=== PATIENT | female | born 1940 | race Caucasian/White ===

== ENCOUNTER 2017-06-10 05:57 | Emergency (ER) | payer MEDICARE, MEDICAID ==
[2017-06-10] MEDS ORDERED: Ondansetron 4 MG/2 ML SDV IVPUSH ONE (06:12)
--- NOTE | 2017-06-10 06:25 | EDM.PDOC ---
<Adelaide Hoff - Last Filed: 06/10/17 06:40> ED HPI GENERAL MEDICAL PROBLEM - General Chief Complaint: Syncope Stated Complaint: MEDICAL VIA [facility] Time Seen by Provider: 06/10/17 06:18 Source of Information: Reports: Patient, EMS Notes Reviewed History Limitations: Reports: No Limitations - History of Present Illness INITIAL COMMENTS - FREE TEXT/NARRATIVE: pt woke up a 3 am and she felt like everything was moving in front of her. She does not have a headache. She is vry nauseated, Onset: Today, Sudden Duration: Hour(s): Location: Reports: Head Worsens with: Reports: Movement Associated Symptoms: Reports: Nausea/Vomiting denies pain Pain Score (Numeric/FACES): 0 - Related Data Allergies Allergy/AdvReac Type Severity Reaction Status Date / Time moxifloxacin HCl Allergy Severe Seizure Verified 06/10/17 06:05 [From Avelox] indomethacin Allergy Intermediate Itching Verified 06/10/17 06:05 azathioprine Allergy Unknown Itching Verified 06/10/17 06:05 cephalexin monohydrate Allergy Unknown Itching Verified 06/10/17 06:05 [From Keflex] clindamycin HCl Allergy Unknown Itching Verified 06/10/17 06:05 [From Cleocin] codeine Allergy Unknown Itching Verified 06/10/17 06:05 doxycycline Allergy Unknown Itching Verified 06/10/17 06:05 erythromycin base Allergy Unknown Itching Verified 06/10/17 06:05 [Erythromycin Base] etodolac [Etodolac] Allergy Unknown Itching Verified 06/10/17 06:05 methotrexate Allergy Unknown Itching Verified 06/10/17 06:05 paroxetine HCl [From Paxil] Allergy Unknown Itching Verified 06/10/17 06:05 Penicillins Allergy Unknown Itching Verified 06/10/17 06:05 Sulfa (Sulfonamide Allergy Unknown Itching Verified 06/10/17 06:05 Antibiotics) ibuprofen Allergy Cannot Verified 06/10/17 06:05 Remember Iodinated Contrast- Oral and Allergy Cannot Verified 06/10/17 06:05 IV Dye Remember sulfasalazine Allergy Cannot Verified 06/10/17 06:05 [From Azulfidine] Remember sertraline HCl [From Zoloft] AdvReac Unknown Weakness Verified 06/10/17 06:05 prednisone AdvReac Joint Pain Verified 06/10/17 06:05 Home Meds: Home Meds Zolpidem Tartrate [Ambien] 5 mg PO BEDTIME PRN 10/08/13 [History] atorvaSTATin [Lipitor] 40 mg PO BEDTIME 10/08/13 [History] methylPREDNISolone [Methylprednisolone] 8 mg PO DAILY 10/08/13 [History] amLODIPine [Norvasc] 2.5 mg PO DAILY 09/30/15 [History] Cyanocobalamin (Vitamin B-12) [Vitamin B-12] 1,000 mcg PO DAILY 06/10/17 [ History] Furosemide [Lasix] 20 mg PO DAILY PRN 06/10/17 [History] Past Medical History HEENT History: Reports: Impaired Vision, Other (See Below) Other HEENT History: 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 Cardiovascular History: Reports: Heart Murmur, High Cholesterol, Hypertension Respiratory History: Reports: None Gastrointestinal History: Reports: GERD Genitourinary History: Reports: Urinary Incontinence Other Genitourinary History: urinary frequency 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: Musculoskeletal History: Reports: Arthritis, Osteoarthritis, Osteoporosis Other Musculoskeletal History: polymyalgia rheumatica Neurological History: Reports: Seizure, Other (See Below) 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 Psychiatric History: Reports: Anxiety, Depression Endocrine/Metabolic History: Reports: Other (See Below) Other Endocrine/Metabolic History: Pre diabetic Hematologic History: Reports: None Immunologic History: Reports: None Oncologic (Cancer) History: Reports: None Dermatologic History: Reports: None - Infectious Disease History Infectious Disease History: Reports: Chicken Pox, Shingles - Past Surgical History HEENT Surgical History: Reports: Cataract Surgery, Tonsillectomy, Other (See Below) Cardiovascular Surgical History: Reports: None Respiratory Surgical History: Reports: None GI Surgical History: Reports: Colonoscopy Female Surgical History: Reports: None Neurological Surgical History: Reports: None Musculoskeletal Surgical History: Reports: None Oncologic Surgical History: Reports: None Dermatological Surgical History: Reports: None Social & Family History - Tobacco Use Smoking Status *Q: Never Smoker Second Hand Smoke Exposure: No - Alcohol Use Days Per Week of Alcohol Use: 0 - Recreational Drug Use Recreational Drug Use: No ED ROS GENERAL - Review of Systems Review Of Systems: See Below Constitutional: Reports: No Symptoms HEENT: Reports: Vertigo Respiratory: Reports: No Symptoms Cardiovascular: Reports: No Symptoms Endocrine: Reports: No Symptoms GI/Abdominal: Reports: No Symptoms : Reports: No Symptoms Musculoskeletal: Reports: Other (pt has acute joint pain) Skin: Reports: No Symptoms Neurological: Reports: Dizziness Psychiatric: Reports: Depression ED EXAM, DIZZINESS - Physical Exam Exam: See Below Text/Narrative:: pt arrived with a history of waking up at 3 am and feeling like the whole room was spinning. She was not able to walk, She was very nauseated and did alot of wretching. Exam Limited By: No Limitations General Appearance: Alert, Anxious, Moderate Distress, Other (pupils are equal and reactive. She does have some lateral nystagmus. ) Nystagmus: reproducible Ears: Normal TMs Nose: Normal Inspection Throat/Mouth: Normal Inspection Head Exam: Atraumatic Neck: Normal Inspection Respiratory/Chest: No Respiratory Distress GI/Abdominal: Soft, Non-Tender (Female) Exam: Deferred Rectal (Female) Exam: Deferred Neurological: Alert, Oriented x 3 Extremities: Other ( rt leg is very swollen and tender,) Psychiatric: Normal Affect Skin Exam: Warm Course - Vital Signs Last Recorded V/S: Last Vital Signs Temp 96.8 F 06/10/17 07:50 Pulse 75 06/10/17 07:50 Resp 16 06/10/17 07:50 BP 150/77 H 06/10/17 07:50 Pulse Ox 95 06/10/17 07:50 - Orders/Labs/Meds Orders: Active Orders 24 hr Category Date Time Status Sodium Chloride 0.9% [Normal Saline] 1,000 ml Med 06/10/17 06:45 Active IV ASDIRECTED Medication Orders Sodium Chloride (Normal Saline) 1,000 mls @ 250 mls/hr IV ASDIRECTED NORMA Last Admin: 06/10/17 06:39 Dose: 250 mls/hr Labs: Laboratory Tests 06/10/17 06/10/17 06/10/17 Range/Units 06:38 06:38 06:38 WBC 13.0 H (4.5-11.0) K/uL RBC 4.24 (3.30-5.50) M/uL Hgb 12.2 (12.0-15.0) g/dL Hct 37.5 (36.0-48.0) % MCV 88 (80-98) fL MCH 29 (27-31) pg MCHC 33 (32-36) % Plt Count 221 (150-400) K/uL Neut % (Auto) 62 (36-66) % Lymph % (Auto) 28 (24-44) % [place] % (Auto) 8 H (2-6) % Eos % (Auto) 2 (2-4) % Baso % (Auto) 1 (0-1) % PT 10.0 (9.5-12.0) sec INR 0.94 (0.80-1.20) Sodium 142 (140-148) mmol/L Potassium 3.1 L (3.6-5.2) mmol/L Chloride 104 (100-108) mmol/L Carbon Dioxide 30 (21-32) mmol/L Anion Gap 11.1 (5.0-14.0) mmol/L BUN 22 H (7-18) mg/dL Creatinine 1.0 (0.6-1.0) mg/dL Est Cr Clr Drug Dosing 41.72 mL/min Estimated GFR (MDRD) 54 L (>60) Glucose 105 (74-106) mg/dL Calcium 8.7 (8.5-10.1) mg/dL Total Bilirubin 0.3 (0.2-1.0) mg/dL AST 18 (15-37) U/L ALT 23 (12-78) U/L Alkaline Phosphatase 67 (46-116) U/L Total Protein 7.0 (6.4-8.2) g/dL Albumin 3.2 L (3.4-5.0) g/dL Globulin 3.8 H (2.3-3.5) g/dL Albumin/Globulin Ratio 0.8 L (1.2-2.2) Urine Color Urine Appearance Urine pH (4.5-8.0) Ur Specific [place] (1.008-1.030) Urine Protein (NEGATIVE) mg/dL Urine Glucose (UA) (NEGATIVE) mg/dL Urine Ketones (NEGATIVE) mg/dL Urine Occult Blood (NEGATIVE) Urine Nitrite (NEGATIVE) Urine Bilirubin (NEGATIVE) Urine Urobilinogen (NORMAL) mg/dL Ur Leukocyte Esterase (NEGATIVE) Urine RBC (0-5) Urine WBC (0-5) Ur Epithelial Cells Amorphous Sediment Urine Bacteria Urine Mucus 06/10/17 Range/Units 07:47 WBC (4.5-11.0) K/uL RBC (3.30-5.50) M/uL Hgb (12.0-15.0) g/dL Hct (36.0-48.0) % MCV (80-98) fL MCH (27-31) pg MCHC (32-36) % Plt Count (150-400) K/uL Neut % (Auto) (36-66) % Lymph % (Auto) (24-44) % [place] % (Auto) (2-6) % Eos % (Auto) (2-4) % Baso % (Auto) (0-1) % PT (9.5-12.0) sec INR (0.80-1.20) Sodium (140-148) mmol/L Potassium (3.6-5.2) mmol/L Chloride (100-108) mmol/L Carbon Dioxide (21-32) mmol/L Anion Gap (5.0-14.0) mmol/L BUN (7-18) mg/dL Creatinine (0.6-1.0) mg/dL Est Cr Clr Drug Dosing mL/min Estimated GFR (MDRD) (>60) Glucose (74-106) mg/dL Calcium (8.5-10.1) mg/dL Total Bilirubin (0.2-1.0) mg/dL AST (15-37) U/L ALT (12-78) U/L Alkaline Phosphatase (46-116) U/L Total Protein (6.4-8.2) g/dL Albumin (3.4-5.0) g/dL Globulin (2.3-3.5) g/dL Albumin/Globulin Ratio (1.2-2.2) Urine Color Yellow Urine Appearance Clear Urine pH 8.0 (4.5-8.0) Ur Specific [place] 1.010 (1.008-1.030) Urine Protein Negative (NEGATIVE) mg/dL Urine Glucose (UA) Normal (NEGATIVE) mg/dL Urine Ketones Negative (NEGATIVE) mg/dL Urine Occult Blood Negative (NEGATIVE) Urine Nitrite Negative (NEGATIVE) Urine Bilirubin Negative (NEGATIVE) Urine Urobilinogen Normal (NORMAL) mg/dL Ur Leukocyte Esterase Negative (NEGATIVE) Urine RBC Not seen (0-5) Urine WBC Not seen (0-5) Ur Epithelial Cells Not seen Amorphous Sediment Not seen Urine Bacteria Not seen Urine Mucus Not seen Meds: Medications Generic Name Dose Route Start Last Admin Trade Name Freq PRN Reason Stop Dose Admin Sodium Chloride 1,000 mls @ 250 mls/hr 06/10/17 06:45 06/10/17 06:39 Normal Saline IV 250 mls/hr ASDIRECTED NORMA Administration Discontinued Medications Generic Name Dose Route Start Last Admin Trade Name Jacoby PRN Reason Stop Dose Admin Lorazepam 0.5 mg 06/10/17 08:48 06/10/17 09:03 Ativan IVPUSH 06/10/17 08:49 0.5 mg ONETIME ONE Administration Meclizine HCl 25 mg 06/10/17 06:31 06/10/17 06:38 Antivert PO 06/10/17 06:32 25 mg ONETIME ONE Administration Ondansetron HCl 4 mg 06/10/17 06:12 06/10/17 06:16 Zofran IVPUSH 06/10/17 06:13 4 mg ONETIME ONE Administration Departure - Departure Disposition: Home, Self-Care 01 Clinical Impression: Dizziness - Discharge Information Forms: ED Department Discharge Additional Instructions: Use Ativan as needed to help control dizzy and nausea symptoms, Please followup with your primary care provider in 3-5 days if not better, please call return to the emergency department with worsening of symptoms. <OfficerHussain - Last Filed: 06/10/17 11:10> Course - Re-Assessments/Exams Free Text/Narrative Re-Assessment/Exam: Took over care from Dr. Hoff is 7 AM, hints exam was negative head impulse negative no nystagmus test askew also negative. 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 follow-up with her primary care in 3-5 days if no improvement prescription written for Ativan total #10 tablets Patient was in agreement with the plan all questions were answered, they were instructed to return to the emergency department or call for worsening symptoms. This note was dictated using [employer] voice recognition software please call with any questions.
[2017-06-10] MEDS ORDERED: Meclizine 25 MG Tab PO ONE (06:31)
[2017-06-10] MEDS ORDERED: Sodium Chloride 0.9% 1,000 ML IV SCH (06:45)
[2017-06-10 07:52] VITALS: BP 150/77
[2017-06-10] MEDS ORDERED: LORazepam 2 MG/ML MDV IVPUSH ONE (08:48)
== END 2017-06-10 11:30 | disposition home or self-care (01) ==
LOC: JP.ED 05:57
DX: R42 Dizziness and giddiness (principal); I10 Essential (primary) hypertension; E78.00 Pure hypercholesterolemia, unspecified; K21.9 Gastro-esophageal reflux disease without esophagitis; M19.90 Unspecified osteoarthritis, unspecified site; M81.0 Age-related osteoporosis without current pathological fracture; F41.9 Anxiety disorder, unspecified; F32.9 Major depressive disorder, single episode, unspecified; H54.42 Blindness, left eye, normal vision right eye; Z79.899 Other long term (current) drug therapy; Z98.49 Cataract extraction status, unspecified eye; Z98.890 Other specified postprocedural states; Z88.0 Allergy status to penicillin; Z88.1 Allergy status to other antibiotic agents; Z88.2 Allergy status to sulfonamides; Z88.5 Allergy status to narcotic agent; Z88.8 Allergy status to other drugs, medicaments and biological substances; Z91.041 Radiographic dye allergy status
CPT/HCPCS: 36415; 80053; 81001; 82962; 85025; 85610; 96361; 96374; 96375; 99284; A9270; J2060; J2405; J7040; 99283

== ENCOUNTER 2017-07-24 14:20 | Inpatient (IN) | payer MEDICARE, MEDICAID ==
--- NOTE | 2017-07-24 15:17 | CR ---
Chest 1V Frontal INDICATION: chest pain, weakness COMPARISON: 12/08/2015 FINDINGS: Single portable view. Small infiltrate at the left lung base. Lungs otherwise clear. No p leural effusions. No signs of pulmonary edema. Heart size normal. IMPRESSION: Small infiltrate left lung base. This may represent pneumonia.
--- NOTE | 2017-07-24 15:29 | EDM.PDOC ---
ED HPI GENERAL MEDICAL PROBLEM - General Chief Complaint: General Stated Complaint: WEAKNESS Time Seen by Provider: 07/24/17 14:40 Source of Information: Reports: Patient History Limitations: Reports: No Limitations - History of Present Illness INITIAL COMMENTS - FREE TEXT/NARRATIVE: 76-year-old female who had chest pain all night last night, pain with coughing and this morning weakness so she called her friend to bring her into the clinic who sent her over the emergency room. She is afebrile and her oxygen saturations are normal, she does not complain of shortness of breath. Her mouth hurts, it's painful for her to swallow her pills. She was so weak however that her friend had to get her out of her chair, and they had to help her out of the car when she got to the clinic. Onset: Unknown/Unsure (Worsening over the last 24 hours) Location: Reports: Generalized (Weakness seems to be worse in her lower extremities) Severity: Moderate Associated Symptoms: Reports: Chest Pain, Cough, Shortness of Breath. Denies: Confusion, Fever/Chills Throat Pain Score (Numeric/FACES): 9 Left Eye Pain Score (Numeric/FACES): 3 - Related Data Allergies Allergy/AdvReac Type Severity Reaction Status Date / Time moxifloxacin HCl Allergy Severe Seizure Verified 07/24/17 14:41 [From Avelox] indomethacin Allergy Intermediate Itching Verified 07/24/17 14:41 azathioprine Allergy Unknown Itching Verified 07/24/17 14:41 cephalexin monohydrate Allergy Unknown Itching Verified 07/24/17 14:41 [From Keflex] clindamycin HCl Allergy Unknown Itching Verified 07/24/17 14:41 [From Cleocin] codeine Allergy Unknown Itching Verified 07/24/17 14:41 doxycycline Allergy Unknown Itching Verified 07/24/17 14:41 erythromycin base Allergy Unknown Itching Verified 07/24/17 14:41 [Erythromycin Base] etodolac [Etodolac] Allergy Unknown Itching Verified 07/24/17 14:41 methotrexate Allergy Unknown Itching Verified 07/24/17 14:41 paroxetine HCl [From Paxil] Allergy Unknown Itching Verified 07/24/17 14:41 Penicillins Allergy Unknown Itching Verified 07/24/17 14:41 Sulfa (Sulfonamide Allergy Unknown Itching Verified 07/24/17 14:41 Antibiotics) ibuprofen Allergy Cannot Verified 07/24/17 14:41 Remember Iodinated Contrast- Oral and Allergy Cannot Verified 07/24/17 14:41 IV Dye Remember lisinopril Allergy Cannot Verified 07/24/17 14:41 Remember sulfasalazine Allergy Cannot Verified 07/24/17 14:41 [From Azulfidine] Remember sertraline HCl [From Zoloft] AdvReac Unknown Weakness Verified 07/24/17 14:41 prednisone AdvReac Joint Pain Verified 07/24/17 14:41 Home Meds: Home Meds Zolpidem Tartrate [Ambien] 5 mg PO BEDTIME PRN 10/08/13 [History] atorvaSTATin [Lipitor] 40 mg PO BEDTIME 10/08/13 [History] methylPREDNISolone [Methylprednisolone] 8 mg PO DAILY 10/08/13 [History] amLODIPine [Norvasc] 5 mg PO DAILY 09/30/15 [History] Cyanocobalamin (Vitamin B-12) [Vitamin B-12] 1,000 mcg PO DAILY 06/10/17 [ History] Furosemide [Lasix] 20 mg PO DAILY PRN 06/10/17 [History] Acetaminophen/HYDROcodone [[place] 325-5 MG] 1 tab PO BID PRN 07/24/17 [History] Ammonium Lactate [Lac-Hydrin 12% Crm] 1 dose TOP BID 07/24/17 [History] Esomeprazole [NexIUM] 1 cap PO DAILY 07/24/17 [History] Multivitamin [Multivitamins] 1 cap PO DAILY 07/24/17 [History] Past Medical History HEENT History: Reports: Impaired Vision, Other (See Below) Other HEENT History: 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 Cardiovascular History: Reports: Heart Murmur, High Cholesterol, Hypertension Respiratory History: Reports: None Gastrointestinal History: Reports: GERD Genitourinary History: Reports: Urinary Incontinence Other Genitourinary History: urinary frequency FOOD SERVICE History: Reports: Musculoskeletal History: Reports: Arthritis, Osteoarthritis, Osteoporosis Other Musculoskeletal History: polymyalgia rheumatica Neurological History: Reports: Seizure, Other (See Below) 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 Psychiatric History: Reports: Anxiety, Depression Endocrine/Metabolic History: Reports: Other (See Below) Other Endocrine/Metabolic History: Pre diabetic Hematologic History: Reports: None Immunologic History: Reports: None Oncologic (Cancer) History: Reports: None Dermatologic History: Reports: None - Infectious Disease History Infectious Disease History: Reports: Chicken Pox, Shingles - Past Surgical History HEENT Surgical History: Reports: Cataract Surgery, Tonsillectomy, Other (See Below) Cardiovascular Surgical History: Reports: None Respiratory Surgical History: Reports: None GI Surgical History: Reports: Colonoscopy Female Surgical History: Reports: None Neurological Surgical History: Reports: None Musculoskeletal Surgical History: Reports: None Oncologic Surgical History: Reports: None Dermatological Surgical History: Reports: None Social & Family History - Tobacco Use Smoking Status *Q: Never Smoker Second Hand Smoke Exposure: No - Caffeine Use Caffeine Use: Reports: Coffee - Alcohol Use Days Per Week of Alcohol Use: 0 - Recreational Drug Use Recreational Drug Use: No ED ROS GENERAL - Review of Systems Review Of Systems: See Below Constitutional: Reports: Malaise, Weakness. Denies: Fever, Chills HEENT: Reports: Throat Pain Respiratory: Reports: Cough Cardiovascular: Reports: Chest Pain GI/Abdominal: Denies: Abdominal Pain, Nausea, Vomiting Musculoskeletal: Reports: Other (Advanced rheumatic arthritic changes to the hands and feet). Denies: Muscle Pain Skin: Reports: No Symptoms Neurological: Reports: Weakness. 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 No significant lower extremity edema) Neurological: Alert, Oriented Psychiatric: Flat Affect Skin Exam: Warm, Dry Course - Vital Signs Last Recorded V/S: Last Vital Signs Temp 96.8 F 07/25/17 03:12 Pulse 80 07/25/17 03:12 Resp 16 07/25/17 03:12 BP 133/71 07/25/17 03:12 Pulse Ox 94 L 07/25/17 03:12 - Orders/Labs/Meds Orders: Active Orders 24 hr Category Date Time Status Sodium Chloride 0.9% [Saline Flush] Med 07/24/17 17:03 Active 10 ml FLUSH ASDIRECTED PRN cefTRIAXone [Rocephin] 1 gm Med 07/24/17 17:15 Active Sodium Chloride 0.9% [Normal Saline] 50 ml IV Q24H Peripheral IV Insertion Adult [OM.PC] Routine Oth 07/24/17 17:03 Ordered EKG 12 Lead [EK] Routine Ther 07/24/17 14:50 Stop Req Medication Orders Acetaminophen (Tylenol) 650 mg PO Q4H PRN PRN Reason: Pain (Mild 1-3)/fever Hydrocodone Bitart/Acetaminophen ([place] 325-5 Mg) 1 tab PO Q4H PRN PRN Reason: Pain (moderate 4-6) Albuterol (Proventil Neb Soln) 2.5 mg NEB Q4H PRN PRN Reason: Shortness Of Breath/wheezing Amlodipine Besylate (Norvasc) 5 mg PO BEDTIME [facility] Last Admin: 07/24/17 21:31 Dose: 5 mg Lidocaine HCl 30 ml/ Al Hydroxide/Mg Hydroxide 30 ml/Diphenhydramine HCl 75 mg 0 ml PO Q4H PRN PRN Reason: MOUTH CARE Last Admin: 07/25/17 03:19 Dose: 15 ml Admin: 07/24/17 22:01 Dose: 15 ml Cyanocobalamin (Vitamin B12) 1,000 mcg PO DAILY [facility] Enoxaparin Sodium (Lovenox) 40 mg SUBCUT DAILY [facility] Guaifenesin/Dextromethorphan (Robitussin Dm) 10 ml PO Q4H PRN PRN Reason: Cough Ceftriaxone Sodium 1 gm/ (Sodium Chloride) 50 mls @ 100 mls/hr IV Q24H [facility] Last Admin: 07/24/17 17:31 Dose: 100 mls/hr Azithromycin 500 mg/ Sodium (Chloride) 250 mls @ 250 mls/hr IV Q24H [facility] Last Admin: 07/24/17 18:48 Dose: 250 mls/hr Sodium Chloride (Normal Saline) 1,000 mls @ 125 mls/hr IV ASDIRECTED [facility] Last Admin: 07/25/17 03:12 Dose: 125 mls/hr Methylprednisolone (Medrol) 8 mg PO DAILY [facility] PRN Reason: Protocol Nystatin (Mycostatin) 5 ml PO QID [facility] Last Admin: 07/25/17 05:30 Dose: 5 ml Admin: 07/24/17 21:31 Dose: 5 ml Admin: 07/24/17 18:47 Dose: 5 ml Ondansetron HCl (Zofran Odt) 4 mg PO Q6H PRN PRN Reason: Nausea able to take PO Pantoprazole Sodium (Protonix) 40 mg PO ACBREAKFAST [facility] Polyethylene Glycol (Miralax) 17 gm PO DAILY PRN PRN Reason: Constipation Senna/Docusate Sodium (Senna Plus) 1 tab PO BID PRN PRN Reason: Constipation Sodium Chloride (Saline Flush) 10 ml FLUSH ASDIRECTED PRN PRN Reason: Keep Vein Open Last Admin: 07/24/17 17:35 Dose: 10 ml Labs: Laboratory Tests 07/24/17 07/24/17 Range/Units 15:04 15:04 WBC 13.8 H (4.5-11.0) K/uL RBC 3.96 (3.30-5.50) M/uL Hgb 11.3 L (12.0-15.0) g/dL Hct 35.3 L (36.0-48.0) % MCV 89 (80-98) fL MCH 29 (27-31) pg MCHC 32 (32-36) % Plt Count 275 (150-400) K/uL Neut % (Auto) 75 H (36-66) % Lymph % (Auto) 14 L (24-44) % [place] % (Auto) 9 H (2-6) % Eos % (Auto) 2 (2-4) % Baso % (Auto) 0 (0-1) % Sodium 138 L (140-148) mmol/L Potassium 4.1 (3.6-5.2) mmol/L Chloride 101 (100-108) mmol/L Carbon Dioxide 27 (21-32) mmol/L Anion Gap 14.1 H (5.0-14.0) mmol/L BUN 19 H (7-18) mg/dL Creatinine 1.1 H (0.6-1.0) mg/dL Est Cr Clr Drug Dosing TNP Estimated GFR (MDRD) 48 L (>60) Glucose 99 (74-106) mg/dL Calcium 8.5 (8.5-10.1) mg/dL Total Bilirubin 0.4 (0.2-1.0) mg/dL AST 23 (15-37) U/L ALT 32 (12-78) U/L Alkaline Phosphatase 73 (46-116) U/L Troponin I < 0.017 (0.000-0.056) ng/mL Total Protein 7.0 (6.4-8.2) g/dL Albumin 2.5 L (3.4-5.0) g/dL Globulin 4.5 H (2.3-3.5) g/dL Albumin/Globulin Ratio 0.6 L (1.2-2.2) Meds: Medications Generic Name Dose Route Start Last Admin Trade Name Freq PRN Reason Stop Dose Admin Acetaminophen 650 mg 07/24/17 18:03 Tylenol PO Q4H PRN Pain (Mild 1-3)/fever Hydrocodone Bitart/Acetaminophen 1 tab 07/24/17 18:03 [place] 325-5 Mg PO Q4H PRN Pain (moderate 4-6) Albuterol 2.5 mg 07/24/17 18:03 Proventil Neb Soln NEB Q4H PRN Shortness Of Breath/wheezing Amlodipine Besylate 5 mg 07/24/17 21:00 07/24/17 21:31 Norvasc PO 5 mg BEDTIME [facility] Administration Lidocaine HCl 30 ml/ Al 0 ml 07/24/17 18:03 07/25/17 03:19 Hydroxide/Mg Hydroxide 30 ml/ PO 15 ml Diphenhydramine HCl 75 mg Q4H PRN Administration MOUTH CARE Cyanocobalamin 1,000 mcg 07/25/17 09:00 Vitamin B12 PO DAILY [facility] Enoxaparin Sodium 40 mg 07/25/17 09:00 Lovenox SUBCUT DAILY [facility] Guaifenesin/Dextromethorphan 10 ml 07/24/17 18:03 Robitussin Dm PO Q4H PRN Cough Ceftriaxone Sodium 1 gm/ 50 mls @ 100 mls/hr 07/24/17 17:15 07/24/17 17:31 Sodium Chloride IV 100 mls/hr Q24H [facility] Administration Azithromycin 500 mg/ Sodium 250 mls @ 250 mls/hr 07/24/17 19:00 07/24/17 18: 48 Chloride IV 250 mls/hr Q24H [facility] Administration Sodium Chloride 1,000 mls @ 125 mls/hr 07/24/17 18:03 07/25/17 03:12 Normal Saline IV 125 mls/hr ASDIRECTED [facility] Administration Methylprednisolone 8 mg 07/25/17 09:00 Medrol PO DAILY [facility] Protocol Nystatin 5 ml 07/24/17 18:03 07/25/17 05:30 Mycostatin PO 5 ml QID [facility] Administration Ondansetron HCl 4 mg 07/24/17 18:03 Zofran Odt PO Q6H PRN Nausea able to take PO Pantoprazole Sodium 40 mg 07/25/17 07:30 Protonix PO ACBREAKFAST [facility] Polyethylene Glycol 17 gm 07/24/17 18:03 Miralax PO DAILY PRN Constipation Senna/Docusate Sodium 1 tab 07/24/17 18:03 Senna Plus PO BID PRN Constipation Sodium Chloride 10 ml 07/24/17 17:03 07/24/17 17:35 Saline Flush FLUSH 10 ml ASDIRECTED PRN Administration Keep Vein Open Discontinued Medications Generic Name Dose Route Start Last Admin Trade Name Freq PRN Reason Stop Dose Admin Hydrocodone Bitart/Acetaminophen 1 tab 07/24/17 18:03 [place] 325-5 Mg PO BID PRN Pain Al Hydroxide/Mg Hydroxide Confirm 07/24/17 21:48 07/24/17 22:03 Mag-Al Plus Administered 07/24/17 21:49 Not Given Dose 30 ml .ROUTE .STK-MED ONE Amlodipine Besylate 5 mg 07/25/17 09:00 Norvasc PO DAILY [facility] Diphenhydramine HCl Confirm 07/24/17 21:48 07/24/17 22:02 Benadryl Administered 07/24/17 21:49 Not Given Dose 75 mg .ROUTE .STK-MED ONE Sodium Chloride 1,000 mls @ 999 mls/hr 07/24/17 17:15 07/24/17 17:31 Normal Saline IV 07/24/17 18:16 999 mls/hr ASDIRECTED [facility] Administration Lidocaine HCl Confirm 07/24/17 21:48 07/24/17 22:03 Xylocaine 2% Viscous Administered 07/24/17 21:49 Not Given Dose 30 ml .ROUTE .STK-MED ONE Methylprednisolone Sodium Succinate 62.5 mg 07/24/17 17:03 07/24/17 17:34 Solu-Medrol IVPUSH 07/24/17 17:04 62.5 mg ONETIME ONE Administration - Re-Assessments/Exams Free Text/Narrative Re-Assessment/Exam: 07/24/17 16:16 A chest x-ray was obtained that shows no significant infiltrate or failure. White count was 13.5 which is baseline for her usual level. Electrolytes were normal. Troponin was negative. EKG showed normal sinus rhythm without ST changes. I suspect her chest pain could possibly be a rheumatic flare and she may need some IV steroids bump and inpatient monitoring for a few days to get strength to go home. 07/24/17 16:[address] Linares of the hospitalist service if he would consider seeing the patient to evaluate for possible admission for diffuse weakness, musculoskeletal chest pain and rheumatic flare. Departure - Departure Time of Disposition: 17:51 Disposition: Admitted As Inpatient 64 Condition: Fair Clinical Impression: Arthritis, rheumatoid Qualifiers: Rheumatoid arthritis location: multiple sites Rheumatoid factor presence: unspecified presence Qualified Code(s): M06.9 - Rheumatoid arthritis, unspecified Left lower lobe pneumonia Qualifiers: Pneumonia type: due to unspecified organism Qualified Code(s): J18.1 - Lobar pneumonia, unspecified organism Pharyngitis Qualifiers: Pharyngitis/tonsillitis etiology: unspecified etiology Qualified Code(s): J02.9 - Acute pharyngitis, unspecified - Discharge Information - My Orders Last 24 Hours: My Active Orders 07/24/17 14:50 EKG 12 Lead [EK] Routine - Assessment/Plan Last 24 Hours: My Active Orders 07/24/17 14:50 EKG 12 Lead [EK] Routine
[2017-07-24] MEDS ORDERED: Sodium Chloride 0.9% 10 ML Syringe FLUSH PRN (17:03)
[2017-07-24] MEDS ORDERED: methylPREDNISolone Sodium Succinate 125 MG/2 ML SDV IVPUSH ONE (17:03)
[2017-07-24] MEDS ORDERED: Sodium Chloride 0.9% 1,000 ML IV SCH ×2 (17:15→18:03)
--- NOTE | 2017-07-24 17:19 | PCM.HP ---
H&P History of Present Illness - General Date of Service: 07/24/17 Admit Problem/Dx: Admission Diagnosis/Problem Admission Diagnosis/Problem Pneumonia Source of Information: Patient, Provider History Limitations: Reports: No Limitations - History of Present Illness Initial Comments - Free Text/Narative: Carole resents to the emergency room today with weakness and fatigue. She reports onset of weakness evening prior to presentation to the emergency room. This was associated with a decrease in appetite and significant fatigue. She slept most of the day today. She also reports odynophagia that started yesterday evening as well. She reports a sharp intermittent mild chest pain that occurred off and on throughout the night but seems to have resolved at this point. She didn't take anything to help the pain. Coughing made it worse. She had mild subjective fevers at home but has not measured any fevers. She does not feel short of breath and has only been coughing rarely. She does have diffuse myalgias which are worse than usual. No depressive increase in her joint pain compared to baseline. She was recently treated for a urinary tract infection but the symptoms have resolved. No complaints of diarrhea, abdominal pain or nausea. She is not aware of any obvious sick contacts. She is not taking any new medications. Workup in the emergency room revealed mild leukocytosis and probable left lower lobe infiltrate. She is not hypoxic but is too weak for outpatient management at this time. She will be admitted for further management. - Related Data Allergies/Adverse Reactions: Allergies Allergy/AdvReac Type Severity Reaction Status Date / Time moxifloxacin HCl Allergy Severe Seizure Verified 07/24/17 14:41 [From Avelox] indomethacin Allergy Intermediate Itching Verified 07/24/17 14:41 azathioprine Allergy Unknown Itching Verified 07/24/17 14:41 cephalexin monohydrate Allergy Unknown Itching Verified 07/24/17 14:41 [From Keflex] clindamycin HCl Allergy Unknown Itching Verified 07/24/17 14:41 [From Cleocin] codeine Allergy Unknown Itching Verified 07/24/17 14:41 doxycycline Allergy Unknown Itching Verified 07/24/17 14:41 erythromycin base Allergy Unknown Itching Verified 07/24/17 14:41 [Erythromycin Base] etodolac [Etodolac] Allergy Unknown Itching Verified 07/24/17 14:41 methotrexate Allergy Unknown Itching Verified 07/24/17 14:41 paroxetine HCl [From Paxil] Allergy Unknown Itching Verified 07/24/17 14:41 Penicillins Allergy Unknown Itching Verified 07/24/17 14:41 Sulfa (Sulfonamide Allergy Unknown Itching Verified 07/24/17 14:41 Antibiotics) ibuprofen Allergy Cannot Verified 07/24/17 14:41 Remember Iodinated Contrast- Oral and Allergy Cannot Verified 07/24/17 14:41 IV Dye Remember lisinopril Allergy Cannot Verified 07/24/17 14:41 Remember sulfasalazine Allergy Cannot Verified 07/24/17 14:41 [From Azulfidine] Remember sertraline HCl [From Zoloft] AdvReac Unknown Weakness Verified 07/24/17 14:41 prednisone AdvReac Joint Pain Verified 07/24/17 14:41 Home Medications: Home Meds Zolpidem Tartrate [Ambien] 5 mg PO BEDTIME PRN 10/08/13 [History] atorvaSTATin [Lipitor] 40 mg PO BEDTIME 10/08/13 [History] methylPREDNISolone [Methylprednisolone] 8 mg PO DAILY 10/08/13 [History] amLODIPine [Norvasc] 5 mg PO DAILY 09/30/15 [History] Cyanocobalamin (Vitamin B-12) [Vitamin B-12] 1,000 mcg PO DAILY 06/10/17 [ History] Furosemide [Lasix] 20 mg PO DAILY PRN 06/10/17 [History] Acetaminophen/HYDROcodone [[place] 325-5 MG] 1 tab PO BID PRN 07/24/17 [History] Ammonium Lactate [Lac-Hydrin 12% Crm] 1 dose TOP BID 07/24/17 [History] Esomeprazole [NexIUM] 1 cap PO DAILY 07/24/17 [History] Multivitamin [Multivitamins] 1 cap PO DAILY 07/24/17 [History] Past Medical History HEENT History: Reports: Impaired Vision, Other (See Below) Other HEENT History: 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 Cardiovascular History: Reports: Heart Murmur, High Cholesterol, Hypertension Respiratory History: Reports: None Gastrointestinal History: Reports: GERD Genitourinary History: Reports: Urinary Incontinence Other Genitourinary History: urinary frequency 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: Musculoskeletal History: Reports: Arthritis, Osteoarthritis, Osteoporosis Other Musculoskeletal History: polymyalgia rheumatica Neurological History: Reports: Seizure, Other (See Below) 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 Psychiatric History: Reports: Anxiety, Depression Endocrine/Metabolic History: Reports: Other (See Below) Other Endocrine/Metabolic History: Pre diabetic Hematologic History: Reports: None Immunologic History: Reports: None Oncologic (Cancer) History: Reports: None Dermatologic History: Reports: None - Infectious Disease History Infectious Disease History: Reports: Chicken Pox, Shingles - Past Surgical History HEENT Surgical History: Reports: Cataract Surgery, Tonsillectomy, Other (See Below) Cardiovascular Surgical History: Reports: None Respiratory Surgical History: Reports: None GI Surgical History: Reports: Colonoscopy Female Surgical History: Reports: None Neurological Surgical History: Reports: None Musculoskeletal Surgical History: Reports: None Oncologic Surgical History: Reports: None Dermatological Surgical History: Reports: None Social & Family History - Family History Cardiac: Denies: CAD - Tobacco Use Smoking Status *Q: Never Smoker Second Hand Smoke Exposure: No - Caffeine Use Caffeine Use: Reports: Coffee - Alcohol Use Days Per Week of Alcohol Use: 0 - Recreational Drug Use Recreational Drug Use: No H&P Review of Systems - Review of Systems: Review Of Systems: See Below Free Text/Narrative: A complete 12 point review of systems was obtained. Pertinent positives and negatives are noted in the history of present illness. All other systems were reviewed and were negative except as noted. Exam - Exam Exam: See Below - Vital Signs Vital Signs: Last Vital Signs Temp 36.5 C 07/24/17 14:32 Pulse 95 07/24/17 14:32 Resp 16 07/24/17 14:32 BP 155/79 H 07/24/17 14:32 Pulse Ox 93 L 07/24/17 14:32 Weight: 1.65 kg - Exam Quality Assessment: No: Supplemental Oxygen General: Alert, Oriented, Cooperative, Mild Distress HEENT: PERRLA. No: Mucosa Moist & [place] (Very dry), Posterior Pharynx Clear ( Unable to visualize), Scleral Icterus Neck: Supple, Other (Tender left lateral neck). No: Lymphadenopathy, Thyromegaly Lungs: Normal Respiratory Effort, Rales (Moderate left lung base). No: Wheezing Cardiovascular: Regular Rate, Regular Rhythm, Systolic Murmur (Squeaky systolic ejection murmur heard best at left lower sternal border but heard throughout) GI/Abdominal Exam: Normal Bowel Sounds, Soft, Non-Tender, No Distention Back Exam: Normal Inspection. No: Muscle Spasm Extremities: No Pedal Edema, Other (Ulnar deformity of all digits on both hands consistent with rheumatoid arthritis). No: Joint Swelling, Increased Warmth Peripheral Pulses: 1+: Dorsalis Pedis (L), Dorsalis Pedis (R) Skin: Warm, Dry, Intact. No: Rash Neuro Extensive - Mental Status: Alert, Oriented x3, Nl Response to Commands Neuro Extensive - Motor, Sensory, Reflexes: CN II-XII Intact. No: Dysarthria, Abnormal Motor, Tremor Psychiatric: Alert, Normal Affect - Patient Data Lab Results Last 24 hrs: Laboratory Results - last 24 hr 07/24/17 07/24/17 Range/Units 15:04 15:04 WBC 13.8 H (4.5-11.0) K/uL RBC 3.96 (3.30-5.50) M/uL Hgb 11.3 L (12.0-15.0) g/dL Hct 35.3 L (36.0-48.0) % MCV 89 (80-98) fL MCH 29 (27-31) pg MCHC 32 (32-36) % Plt Count 275 (150-400) K/uL Neut % (Auto) 75 H (36-66) % Lymph % (Auto) 14 L (24-44) % [place] % (Auto) 9 H (2-6) % Eos % (Auto) 2 (2-4) % Baso % (Auto) 0 (0-1) % Sodium 138 L (140-148) mmol/L Potassium 4.1 (3.6-5.2) mmol/L Chloride 101 (100-108) mmol/L Carbon Dioxide 27 (21-32) mmol/L Anion Gap 14.1 H (5.0-14.0) mmol/L BUN 19 H (7-18) mg/dL Creatinine 1.1 H (0.6-1.0) mg/dL Est Cr Clr Drug Dosing TNP Estimated GFR (MDRD) 48 L (>60) Glucose 99 (74-106) mg/dL Calcium 8.5 (8.5-10.1) mg/dL Total Bilirubin 0.4 (0.2-1.0) mg/dL AST 23 (15-37) U/L ALT 32 (12-78) U/L Alkaline Phosphatase 73 (46-116) U/L Troponin I < 0.017 (0.000-0.056) ng/mL Total Protein 7.0 (6.4-8.2) g/dL Albumin 2.5 L (3.4-5.0) g/dL Globulin 4.5 H (2.3-3.5) g/dL Albumin/Globulin Ratio 0.6 L (1.2-2.2) Result Diagrams: 07/24/17 15:04 07/24/17 15:04 Imaging Impressions Last 24 hrs: Chest x-ray - images personally reviewed - there is a hazy left lower lung opacity concerning for pneumonia. No evidence for effusion or mass. Heart size is normal. No bony abnormalities visualized. EKG INTERPRETATION EKG Date: 07/24/17 Rhythm: NSR Rate (Beats/Min): 94 [place]: Normal P-Wave: Present QRS: Normal ST-T: Normal QT: Normal *Q Meaningful Use (ADM) - VTE *Q VTE Criteria *Q: - VTE Risk Assess *Q Each Risk Factor Represents 1 Point: None Total Score 1 Point Risk Factors: 0 Each Risk Factor Represents 2 Points: None Total Score 2 Point Risk Factors: 0 Each Risk Factor Represents 3 Points: Age 75 Years or Greater Total Score 3 Point Risk Factors: 3 Each Risk Factor Represents 5 Points: None Total Score 5 Point Risk Factors: 0 Venous Thromboembolism Risk Factor Score *Q: 3 - Stroke *Q Stroke Criteria *Q: - AMI *Q AMI Criteria *Q: - Problem List (1) Left lower lobe pneumonia SNOMED Code(s): 482875749 ICD Code: J18.1 - LOBAR PNEUMONIA, UNSPECIFIED ORGANISM Status: Acute Current Visit: Yes Qualifiers: Pneumonia type: due to unspecified organism Qualified Code(s): J18.1 - Lobar pneumonia, unspecified organism (2) Arthritis, rheumatoid SNOMED Code(s): 36941227 ICD Code: M06.9 - RHEUMATOID ARTHRITIS, UNSPECIFIED Status: Chronic Current Visit: No Qualifiers: Rheumatoid arthritis location: multiple sites Rheumatoid factor presence: unspecified presence Qualified Code(s): M06.9 - Rheumatoid arthritis, unspecified Problem List Initiated/Reviewed/Updated: Yes Orders Last 24hrs: Active Orders 24 hr Category Date Time Status Patient Status Manage Transfer [TRANSFER] Routine ADT 07/24/17 17:05 Ordered EKG Documentation Completion [RC] ASDIRECTED Care 07/24/17 14:50 Active Peripheral IV Care [RC] . DIRECTED Care 07/24/17 17:03 Active Sodium Chloride 0.9% [Normal Saline] 1,000 ml Med 07/24/17 17:15 Active IV ASDIRECTED Sodium Chloride 0.9% [Saline Flush] Med 07/24/17 17:03 Active 10 ml FLUSH ASDIRECTED PRN cefTRIAXone [Rocephin] 1 gm Med 07/24/17 17:15 Active Sodium Chloride 0.9% [Normal Saline] 50 ml IV Q24H Peripheral IV Insertion Adult [OM.PC] Routine Oth 07/24/17 17:03 Ordered Resuscitation Status Routine Resus Stat 07/24/17 17:07 Ordered EKG 12 Lead [EK] Routine Ther 07/24/17 14:50 Ordered Medication Orders Ceftriaxone Sodium 1 gm/ (Sodium Chloride) 50 mls @ 100 mls/hr IV Q24H NORMA Sodium Chloride (Normal Saline) 1,000 mls @ 999 mls/hr IV ASDIRECTED NORMA Stop: 07/24/17 18:16 Sodium Chloride (Saline Flush) 10 ml FLUSH ASDIRECTED PRN PRN Reason: Keep Vein Open Assessment/Plan Comment:: Assessment and plan - Left lower lobe pneumonia - subtle infiltrate noted on chest x-ray. No significant coughing but she has had subjective fevers. Lung exam is abnormal in the left lower lobe as well. This could explain the weakness, atypical chest pain and fatigue. -Ceftriaxone and azithromycin -One-time dose of IV Solu-Medrol -Nebs as needed -IV fluids -Supplement oxygen if needed Odynophagia - She has had recent antibiotics and thrush is possible though no definite evidence noted on examination. Plan to treat empirically and symptomatically. -Scheduled nystatin -As needed Magic mouthwash Chronic rheumatoid arthritis - Symptoms have been relatively stable. No strong evidence for flare at this time. -One-time dose of steroids as above -Restart maintenance dosing tomorrow -Pain control Maintenance issues - - DVT prophylaxis - enoxaparin - GI prophylaxis - PPI - Nutrition - full liquids - Hagan catheter - not indicated CODE STATUS - patient wishes to be full code at this time Admission justification - This patient will be admitted for inpatient services and is medically appropriate meeting medical necessity for inpatient admission as outlined in my documentation. I reasonably expect the patient will require inpatient services that span a period time over 2 midnights. I reasonably expect this patient to be discharged or transferred within 96 hours [facility]. Disposition - anticipate discharge to home after the hospital stay Primary care physician - [facility] Cal Linares M.D.
[2017-07-24] MEDS: cefTRIAXone 1 GM in Sodium Chloride 0.9% 50 ML IV SCH (17:31)
[2017-07-24] MEDS ORDERED: Polyethylene Glycol 3350 Powder 17 GM Packet PO PRN (18:03)
[2017-07-24] MEDS ORDERED: guaiFENesin/Dextromethorphan 100-10 MG/5 ML Soln 10 ML Cup PO PRN (18:03)
[2017-07-24] MEDS ORDERED: Acetaminophen 325 MG Tab PO PRN (18:03)
[2017-07-24] MEDS ORDERED: Ondansetron 4 MG Tab.DIS PO PRN (18:03)
[2017-07-24] MEDS ORDERED: Acetaminophen/HYDROcodone 325-5 MG Tab PO PRN ×2 (18:03)
[2017-07-24] MEDS ORDERED: Albuterol 0.083% 2.5 MG/3 ML Neb Soln NEB PRN (18:03)
[2017-07-24] MEDS: Nystatin Susp 100,000 Unit/ML 5 ML UD Cup PO SCH ×2 (18:47→21:31)
[2017-07-24] MEDS ORDERED: Azithromycin 500 MG in Sodium Chloride 0.9% 250 ML IV SCH (19:00)
[2017-07-24] MEDS: amLODIPine 5 MG Tab PO SCH (21:31)
[2017-07-24] MEDS ORDERED: Aluminum Hydroxide/Magnesium Hydroxide/Simethicone Susp 30 ML Cup ONE (21:48)
[2017-07-24] MEDS ORDERED: diphenhydrAMINE 25 MG/10 ML CUP ONE (21:48)
[2017-07-24] MEDS ORDERED: Lidocaine 2% Viscous Solution 15 ML Cup ONE (21:48)
[2017-07-24] MEDS: Lidocaine 2% 30 ML, Alum Hydrox/Mag Hydrox/Simeth 30 ML, diphenhydrAMINE 75 MG PO PRN ×3 (22:01)
[2017-07-25] MEDS: Lidocaine 2% 30 ML, Alum Hydrox/Mag Hydrox/Simeth 30 ML, diphenhydrAMINE 75 MG PO PRN ×3 (03:19)
[2017-07-25] MEDS: Nystatin Susp 100,000 Unit/ML 5 ML UD Cup PO SCH ×4 (05:30→21:51)
[2017-07-25] MEDS: Pantoprazole 40 MG Tab.CR PO SCH (08:09)
[2017-07-25] MEDS ORDERED: methylPREDNISolone 4 MG Tab 21 Tab/Dosepak PO SCH (09:00)
[2017-07-25] MEDS ORDERED: amLODIPine 5 MG Tab PO SCH (09:00)
[2017-07-25] MEDS: Cyanocobalamin (Vitamin B12) 1,000 MCG Tab PO SCH (09:16)
[2017-07-25] MEDS: Enoxaparin 40 MG/0.4 ML Syringe SUBCUT SCH (09:21)
--- NOTE | 2017-07-25 11:59 | PCM.PN ---
- General Info Date of Service: 07/25/17 Functional Status: Reports: Pain Controlled, Tolerating Diet, Ambulating - Review of Systems General: Reports: Weakness HEENT: Reports: Sore Throat Pulmonary: Denies: Shortness of Breath Systems Review Comment:: No acute events overnight. No reports of chest pain overnight. Breathing feels a little better today. Strength is been improving and she has been up and walking around. Appetite little better today. No complaints of abdominal pain or nausea. - Patient Data Vitals - Most Recent: Last Vital Signs Temp 36.8 C 07/25/17 11:05 Pulse 87 07/25/17 11:05 Resp 18 07/25/17 11:05 BP 138/59 L 07/25/17 11:05 Pulse Ox 96 07/25/17 11:05 Weight - Most Recent: 68.447 kg I&O - Last 24 Hours: Intake & Output 07/24/17 07/25/17 07/25/17 22:59 06:59 14:59 Intake Total 120 1638 420 Output Total 300 200 550 Balance -180 1438 -130 Lab Results Last 24 Hours: Laboratory Results - last 24 hr 07/24/17 07/25/17 07/25/17 Range/Units 19:55 04:45 04:45 WBC 15.2 H (4.5-11.0) K/uL RBC 3.92 (3.30-5.50) M/uL Hgb 10.9 L (12.0-15.0) g/dL Hct 34.9 L (36.0-48.0) % MCV 89 (80-98) fL MCH 28 (27-31) pg MCHC 31 L (32-36) % Plt Count 258 (150-400) K/uL Sodium 140 (140-148) mmol/L Potassium 4.2 (3.6-5.2) mmol/L Chloride 105 (100-108) mmol/L Carbon Dioxide 24 (21-32) mmol/L Anion Gap 11.0 (5.0-14.0) mmol/L BUN 16 (7-18) mg/dL Creatinine 1.0 (0.6-1.0) mg/dL Est Cr Clr Drug Dosing 41.65 mL/min Estimated GFR (MDRD) 54 L (>60) Glucose 163 H (74-106) mg/dL Calcium 8.2 L (8.5-10.1) mg/dL Urine Color Yellow Urine Appearance Clear Urine pH 7.0 (4.5-8.0) Ur Specific [place] 1.010 (1.008-1.030) Urine Protein Negative (NEGATIVE) mg/dL Urine Glucose (UA) Normal (NEGATIVE) mg/dL Urine Ketones Negative (NEGATIVE) mg/dL Urine Occult Blood Negative (NEGATIVE) Urine Nitrite Negative (NEGATIVE) Urine Bilirubin Negative (NEGATIVE) Urine Urobilinogen 1 (NORMAL) mg/dL Ur Leukocyte Esterase Negative (NEGATIVE) Urine RBC 0-5 (0-5) Urine WBC 0-5 (0-5) Ur Epithelial Cells Rare Amorphous Sediment Few Urine Bacteria Rare Urine Mucus Few Med Orders - Current: Current Medications Acetaminophen (Tylenol) 650 mg PO Q4H PRN PRN Reason: Pain (Mild 1-3)/fever Hydrocodone Bitart/Acetaminophen ([place] 325-5 Mg) 1 tab PO Q4H PRN PRN Reason: Pain (moderate 4-6) Albuterol (Proventil Neb Soln) 2.5 mg NEB Q4H PRN PRN Reason: Shortness Of Breath/wheezing Amlodipine Besylate (Norvasc) 5 mg PO BEDTIME [facility] Last Admin: 07/24/17 21:31 Dose: 5 mg Azithromycin (Zithromax) 500 mg PO Q24H [facility] Lidocaine HCl 30 ml/ Al Hydroxide/Mg Hydroxide 30 ml/Diphenhydramine HCl 75 mg 0 ml PO Q4H PRN PRN Reason: MOUTH CARE Last Admin: 07/25/17 03:19 Dose: 15 ml Cyanocobalamin (Vitamin B12) 1,000 mcg PO DAILY [facility] Last Admin: 07/25/17 09:16 Dose: 1,000 mcg Enoxaparin Sodium (Lovenox) 40 mg SUBCUT DAILY [facility] Last Admin: 07/25/17 09:21 Dose: 40 mg Guaifenesin/Dextromethorphan (Robitussin Dm) 10 ml PO Q4H PRN PRN Reason: Cough Ceftriaxone Sodium 1 gm/ (Sodium Chloride) 50 mls @ 100 mls/hr IV Q24H [facility] Last Admin: 07/24/17 17:31 Dose: 100 mls/hr Methylprednisolone (Medrol) 8 mg PO DAILY@0800 [facility] Last Admin: 07/25/17 08:10 Dose: 8 mg Nystatin (Mycostatin) 5 ml PO QID [facility] Last Admin: 07/25/17 10:56 Dose: 5 ml Ondansetron HCl (Zofran Odt) 4 mg PO Q6H PRN PRN Reason: Nausea able to take PO Pantoprazole Sodium (Protonix) 40 mg PO ACBREAKFAST [facility] Last Admin: 07/25/17 08:09 Dose: 40 mg Polyethylene Glycol (Miralax) 17 gm PO DAILY PRN PRN Reason: Constipation Senna/Docusate Sodium (Senna Plus) 1 tab PO BID PRN PRN Reason: Constipation Sodium Chloride (Saline Flush) 10 ml FLUSH ASDIRECTED PRN PRN Reason: Keep Vein Open Last Admin: 07/24/17 17:35 Dose: 10 ml Discontinued Medications Hydrocodone Bitart/Acetaminophen ([place] 325-5 Mg) 1 tab PO BID PRN PRN Reason: Pain Al Hydroxide/Mg Hydroxide (Mag-Al Plus) Confirm Administered Dose 30 ml .ROUTE .STK-MED ONE Stop: 07/24/17 21:49 Last Admin: 07/24/17 22:03 Dose: Not Given Amlodipine Besylate (Norvasc) 5 mg PO DAILY [facility] Diphenhydramine HCl (Benadryl) Confirm Administered Dose 75 mg .ROUTE .STK-MED ONE Stop: 07/24/17 21:49 Last Admin: 07/24/17 22:02 Dose: Not Given Sodium Chloride (Normal Saline) 1,000 mls @ 999 mls/hr IV ASDIRECTED [facility] Stop: 07/24/17 18:16 Last Admin: 07/24/17 17:31 Dose: 999 mls/hr Azithromycin 500 mg/ Sodium (Chloride) 250 mls @ 250 mls/hr IV Q24H [facility] Last Admin: 07/24/17 18:48 Dose: 250 mls/hr Sodium Chloride (Normal Saline) 1,000 mls @ 125 mls/hr IV ASDIRECTED [facility] Last Admin: 07/25/17 03:12 Dose: 125 mls/hr Lidocaine HCl (Xylocaine 2% Viscous) Confirm Administered Dose 30 ml .ROUTE .STK -MED ONE Stop: 07/24/17 21:49 Last Admin: 07/24/17 22:03 Dose: Not Given Methylprednisolone Sodium Succinate (Solu-Medrol) 62.5 mg IVPUSH ONETIME ONE Stop: 07/24/17 17:04 Last Admin: 07/24/17 17:34 Dose: 62.5 mg - Exam Quality Assessment: No: Supplemental Oxygen General: Alert, Oriented, Cooperative, No Acute Distress Neck: Supple Lungs: Normal Respiratory Effort, Rales (few left lung base) Cardiovascular: Regular Rate, Regular Rhythm GI/Abdominal Exam: Soft, No Distention Extremities: No Pedal Edema. No: Increased Warmth Skin: Warm, Dry Psy/Mental Status: Alert, Normal Affect - Problem List & Annotations (1) Left lower lobe pneumonia SNOMED Code(s): 181284349 Code(s): J18.1 - LOBAR PNEUMONIA, UNSPECIFIED ORGANISM Status: Acute Current Visit: Yes Qualifiers: Pneumonia type: due to unspecified organism Qualified Code(s): J18.1 - Lobar pneumonia, unspecified organism (2) Arthritis, rheumatoid SNOMED Code(s): 80371622 Code(s): M06.9 - RHEUMATOID ARTHRITIS, UNSPECIFIED Status: Chronic Current Visit: Yes Qualifiers: Rheumatoid arthritis location: multiple sites Rheumatoid factor presence: unspecified presence Qualified Code(s): M06.9 - Rheumatoid arthritis, unspecified - Problem List Review Problem List Initiated/Reviewed/Updated: Yes - My Orders Last 24 Hours: My Active Orders 07/24/17 17:07 Resuscitation Status Routine 07/24/17 18:03 Patient Status [ADT] Routine Intake and Output [RC] QSHIFT Notify Provider Vital Signs [RC] ASDIRECTED Oxygen Therapy [RC] PRN RT Aerosol Therapy [RC] ASDIRECTED Up With Assistance [RC] ASDIRECTED VTE/DVT Education [RC] Per Unit Routine Vital Signs [RC] Q4H Acetaminophen [Tylenol] 650 mg PO Q4H PRN Acetaminophen/HYDROcodone [[place] 325-5 MG] 1 tab PO Q4H PRN Albuterol [Proventil Neb Soln] 2.5 mg NEB Q4H PRN Dextromethorphan/guaiFENesin [Robitussin DM] 10 ml PO Q4H PRN Docusate Sodium/Sennosides [Senna Plus] 1 tab PO BID PRN Lidocaine 2% [Xylocaine 2% Viscous] 30 ml Alum Hydrox/Mag Hydrox/Simeth [Mag-Al Plus] 30 ml diphenhydrAMINE [Benadryl] 75 mg 15 ml per dose PO Q4H Nystatin [Mycostatin] 5 ml PO QID Ondansetron [Zofran ODT] 4 mg PO Q6H PRN Polyethylene Glycol 3350 [MiraLAX] 17 gm PO DAILY PRN 07/24/17 21:00 amLODIPine [Norvasc] 5 mg PO BEDTIME 07/25/17 07:00 PT Evaluation and Treatment [CONS] Routine 07/25/17 07:30 Pantoprazole [ProTONIX] 40 mg PO ACBREAKFAST 07/25/17 08:00 methylPREDNISolone [Medrol] 8 mg PO DAILY@0800 07/25/17 09:00 Enoxaparin [Lovenox] 40 mg SUBCUT DAILY 07/25/17 09:44 Incentive Spirometry [RT Incentive Spirometry] [RC] ASDIRECTED 07/25/17 11:57 Ambulate [RC] QID Up to Chair [RC] QID Convert IV to Saline Lock [OM.PC] Routine 07/25/17 19:00 Azithromycin [Zithromax] 500 mg PO Q24H 07/25/17 Lunch Regular Diet [DIET] 07/26/17 05:00 BASIC METABOLIC PANEL,BMP [CHEM] Timed CBC W/O DIFF,HEMOGRAM [HEME] Timed (1) - Plan Plan:: Assessment and plan - Left lower lobe pneumonia - subtle infiltrate noted on chest x-ray. Clinically better today with improved strength and appetite. Tolerating current management. -Ceftriaxone and azithromycin -Nebs as needed -Gentle IV fluids -Supplement oxygen if needed Odynophagia - clinically better but symptoms have not completely resolved this morning. -Scheduled nystatin -As needed Magic mouthwash Chronic rheumatoid arthritis - Symptoms have been relatively stable. No strong evidence for flare at this time. -Continue home dose of methylprednisolone -Pain control Maintenance issues - - DVT prophylaxis - enoxaparin - GI prophylaxis - PPI - Nutrition - full liquids Disposition - anticipate discharge to home after the hospital stay, hopefully tomorrow Cal Linares M.D.
[2017-07-25] MEDS: cefTRIAXone 1 GM in Sodium Chloride 0.9% 50 ML IV SCH (17:25)
[2017-07-25] MEDS ORDERED: Azithromycin 250 MG Tab PO SCH (18:00)
[2017-07-25] MEDS: amLODIPine 5 MG Tab PO SCH (22:55)
[2017-07-26] MEDS: Nystatin Susp 100,000 Unit/ML 5 ML UD Cup PO SCH ×2 (05:17→09:57)
[2017-07-26] MEDS: Pantoprazole 40 MG Tab.CR PO SCH (07:31)
[2017-07-26] MEDS: Cyanocobalamin (Vitamin B12) 1,000 MCG Tab PO SCH (08:18)
[2017-07-26] MEDS: Enoxaparin 40 MG/0.4 ML Syringe SUBCUT SCH (08:18)
[2017-07-26] MEDS ORDERED: amLODIPine 5 MG Tab PO SCH (09:00)
[2017-07-26 10:09] VITALS: BP 134/56
--- NOTE | 2017-07-26 10:28 | PCM.DCSUM1 ---
Discharge Summary - Hospital Course Brief History: 76-year-old female with history of rheumatoid arthritis who presented with generalized weakness and cough. She was admitted for management of left lower lung pneumonia. - Discharge Data Discharge Date: 07/26/17 Discharge Disposition: Home, [facility] Condition: Good - Discharge Diagnosis/Problem(s) (1) Left lower lobe pneumonia SNOMED Code(s): 764723518 ICD Code: J18.1 - LOBAR PNEUMONIA, UNSPECIFIED ORGANISM Status: Acute Qualifiers: Pneumonia type: due to unspecified organism Qualified Code(s): J18.1 - Lobar pneumonia, unspecified organism (2) Arthritis, rheumatoid SNOMED Code(s): 38736644 ICD Code: M06.9 - RHEUMATOID ARTHRITIS, UNSPECIFIED Status: Chronic Qualifiers: Rheumatoid arthritis location: multiple sites Rheumatoid factor presence: unspecified presence Qualified Code(s): M06.9 - Rheumatoid arthritis, unspecified - Patient Summary/Data Consults: Consultations 07/25/17 07:00 PT Evaluation and Treatment [CONS] Routine Please Evaluate and Treat. PT Reason for Consult: Strengthening This query below is only for informational purposes and is not editable. Hospital Course: Carole presented to the emergency room with weakness and a mild cough. She also had some diffuse myalgias and increased arthralgias. Workup in the emergency room was suggestive of a left lung pneumonia. She was not hypoxic but was too weak for outpatient management. She was empirically started on ceftriaxone and azithromycin. She was not wheezing so we did not increase her steroids persistently but she did have a one-time dose of Solu-Medrol to help with her joint symptoms. The morning after admission she is feeling somewhat better. She has started to cough but has remained stable without any supplemental oxygen. Her strength has improved but her endurance remains limited the day after admission. On the day of discharge we have seen additional improvement in her strength and endurance. Her appetite has returned. She has continued to have normal saturations on room air. She feels well enough for discharge home at this time and I believe she is safe for outpatient management. Because of her rapid improvement in going to prescribe a total of 5 days of antibiotic therapy. She will be on a azithromycin and cefdinir. She will be following up next week. Also noted during the hospital stay was a sore throat and possible mild thrush infection. She did improve with scheduled nystatin 10 as needed Magic mouthwash. She did receive a prescription for 3 additional days of nystatin. - Patient Instructions Diet: Regular Diet as Tolerated Activity: As Tolerated Showering/Bathing: May Shower Notify Provider of: Fever, Increased Pain, Nausea and/or Vomiting Other/Special Instructions: 1. You were in the hospital for management of a left lung pneumonia that resulted in generalized weakness. You have improved with some IV fluids and antibiotic therapy. I recommend 3 additional days of antibiotic therapy with azithromycin and cefdinir with dose and timing listed below: -Azithromycin 500 mg once daily at suppertime for 3 days. Your first dose is due tonight. -Cefdinir 300 mg taken twice daily. Your first dose is due tonight. 2. Please follow-up with Sam Fontenot next week to ensure that you continue to do better after hospital discharge. 3. Please seek medical attention if you develop fever greater than 101, have sudden onset of shortness of breath or if you develop severe abdominal pain, vomiting or diarrhea. - Discharge Plan Prescriptions/Med Rec: Azithromycin 500 mg PO QPM #3 tablet Cefdinir 300 mg PO BID #6 capsule Nystatin 500,000 unit PO QID #60 ml Home Medications: Home Meds Zolpidem Tartrate [Ambien] 5 mg PO BEDTIME PRN 10/08/13 [History] atorvaSTATin [Lipitor] 40 mg PO BEDTIME 10/08/13 [History] amLODIPine [Norvasc] 5 mg PO DAILY 09/30/15 [History] Cyanocobalamin (Vitamin B-12) [Vitamin B-12] 1,000 mcg PO DAILY 06/10/17 [ History] Furosemide [Lasix] 20 mg PO DAILY PRN 06/10/17 [History] Acetaminophen/HYDROcodone [[place] 325-5 MG] 1 tab PO BID PRN 07/24/17 [History] Ammonium Lactate [Lac-Hydrin 12% Crm] 1 dose TOP BID 07/24/17 [History] Esomeprazole [NexIUM] 1 cap PO DAILY 07/24/17 [History] Multivitamin [Multivitamins] 1 cap PO DAILY 07/24/17 [History] methylPREDNISolone [Methylprednisolone] 8 mg PO DAILY 07/25/17 [History] Azithromycin 500 mg PO QPM #3 tablet 07/26/17 [Rx] Cefdinir 300 mg PO BID #6 capsule 07/26/17 [Rx] Nystatin 500,000 unit PO QID #60 ml 07/26/17 [Rx] Patient Handouts: Cefdinir capsules, Azithromycin tablets, Community-Acquired Pneumonia, Adult Referrals: Sam Fontenot PA-C [Physician Fitting Supervisor] - 08/01/17 2:20 pm (f/u hospital stay for pneumonia, weakness) - Discharge Summary/Plan Comment DC Time >30 min.: No (25) - Patient Data Vitals - Most Recent: Last Vital Signs Temp 36.4 C 07/26/17 10:07 Pulse 87 07/26/17 10:07 Resp 16 07/26/17 10:07 BP 134/56 L 07/26/17 10:07 Pulse Ox 98 07/26/17 10:07 Weight - Most Recent: 68.447 kg I&O - Last 24 hours: Intake & Output 07/25/17 07/26/17 07/26/17 22:59 06:59 14:59 Intake Total 120 Output Total 385 Balance 120 -385 Lab Results - Last 24 hrs: Laboratory Results - last 24 hr 07/26/17 07/26/17 Range/Units 05:49 05:49 WBC 14.9 H (4.5-11.0) K/uL RBC 3.73 (3.30-5.50) M/uL Hgb 10.3 L (12.0-15.0) g/dL Hct 33.4 L (36.0-48.0) % MCV 90 (80-98) fL MCH 28 (27-31) pg MCHC 31 L (32-36) % Plt Count 281 (150-400) K/uL Sodium 141 (140-148) mmol/L Potassium 3.9 (3.6-5.2) mmol/L Chloride 106 (100-108) mmol/L Carbon Dioxide 25 (21-32) mmol/L Anion Gap 10.2 (5.0-14.0) mmol/L BUN 20 H (7-18) mg/dL Creatinine 0.9 (0.6-1.0) mg/dL Est Cr Clr Drug Dosing 46.28 mL/min Estimated GFR (MDRD) > 60 (>60) Glucose 100 (74-106) mg/dL Calcium 8.2 L (8.5-10.1) mg/dL Med Orders - Current: Current Medications Acetaminophen (Tylenol) 650 mg PO Q4H PRN PRN Reason: Pain (Mild 1-3)/fever Hydrocodone Bitart/Acetaminophen ([place] 325-5 Mg) 1 tab PO Q4H PRN PRN Reason: Pain (moderate 4-6) Albuterol (Proventil Neb Soln) 2.5 mg NEB Q4H PRN PRN Reason: Shortness Of Breath/wheezing Amlodipine Besylate (Norvasc) 5 mg PO DAILY [facility] Last Admin: 07/26/17 08:18 Dose: 5 mg Azithromycin (Zithromax) 500 mg PO Q24H [facility] Last Admin: 07/25/17 17:31 Dose: 500 mg Lidocaine HCl 30 ml/ Al Hydroxide/Mg Hydroxide 30 ml/Diphenhydramine HCl 75 mg 0 ml PO Q4H PRN PRN Reason: MOUTH CARE Last Admin: 07/25/17 03:19 Dose: 15 ml Cyanocobalamin (Vitamin B12) 1,000 mcg PO DAILY [facility] Last Admin: 07/26/17 08:18 Dose: 1,000 mcg Enoxaparin Sodium (Lovenox) 40 mg SUBCUT DAILY [facility] Last Admin: 07/26/17 08:18 Dose: 40 mg Guaifenesin/Dextromethorphan (Robitussin Dm) 10 ml PO Q4H PRN PRN Reason: Cough Ceftriaxone Sodium 1 gm/ (Sodium Chloride) 50 mls @ 100 mls/hr IV Q24H [facility] Last Admin: 07/25/17 17:25 Dose: 100 mls/hr Methylprednisolone (Medrol) 8 mg PO DAILY@0800 [facility] Last Admin: 07/26/17 07:31 Dose: 8 mg Nystatin (Mycostatin) 5 ml PO QID [facility] Last Admin: 07/26/17 09:57 Dose: 5 ml Ondansetron HCl (Zofran Odt) 4 mg PO Q6H PRN PRN Reason: Nausea able to take PO Pantoprazole Sodium (Protonix) 40 mg PO ACBREAKFAST [facility] Last Admin: 07/26/17 07:31 Dose: 40 mg Polyethylene Glycol (Miralax) 17 gm PO DAILY PRN PRN Reason: Constipation Senna/Docusate Sodium (Senna Plus) 1 tab PO BID PRN PRN Reason: Constipation Sodium Chloride (Saline Flush) 10 ml FLUSH ASDIRECTED PRN PRN Reason: Keep Vein Open Last Admin: 07/24/17 17:35 Dose: 10 ml Discontinued Medications Hydrocodone Bitart/Acetaminophen ([place] 325-5 Mg) 1 tab PO BID PRN PRN Reason: Pain Al Hydroxide/Mg Hydroxide (Mag-Al Plus) Confirm Administered Dose 30 ml .ROUTE .STK-MED ONE Stop: 07/24/17 21:49 Last Admin: 07/24/17 22:03 Dose: Not Given Amlodipine Besylate (Norvasc) 5 mg PO DAILY [facility] Amlodipine Besylate (Norvasc) 5 mg PO BEDTIME [facility] Last Admin: 07/25/17 22:55 Dose: Not Given Diphenhydramine HCl (Benadryl) Confirm Administered Dose 75 mg .ROUTE .STK-MED ONE Stop: 07/24/17 21:49 Last Admin: 07/24/17 22:02 Dose: Not Given Sodium Chloride (Normal Saline) 1,000 mls @ 999 mls/hr IV ASDIRECTED [facility] Stop: 07/24/17 18:16 Last Admin: 07/24/17 17:31 Dose: 999 mls/hr Azithromycin 500 mg/ Sodium (Chloride) 250 mls @ 250 mls/hr IV Q24H [facility] Last Admin: 07/24/17 18:48 Dose: 250 mls/hr Sodium Chloride (Normal Saline) 1,000 mls @ 125 mls/hr IV ASDIRECTED [facility] Last Admin: 07/25/17 03:12 Dose: 125 mls/hr Lidocaine HCl (Xylocaine 2% Viscous) Confirm Administered Dose 30 ml .ROUTE .STK -MED ONE Stop: 07/24/17 21:49 Last Admin: 07/24/17 22:03 Dose: Not Given Methylprednisolone Sodium Succinate (Solu-Medrol) 62.5 mg IVPUSH ONETIME ONE Stop: 07/24/17 17:04 Last Admin: 07/24/17 17:34 Dose: 62.5 mg *Q Meaningful Use (DIS) - VTE *Q VTE Criteria *Q: - Stroke *Q Stroke Criteria *Q: - AMI *Q AMI Criteria *Q:
== END 2017-07-26 11:05 | disposition home health service (06) | DRG 195 ==
LOC: JP.ED 14:20 → JP.MS 17:05
PROVIDERS: ADMIT Internal Medicine; ATTEND Internal Medicine
DX: J18.1 Lobar pneumonia, unspecified organism (principal); M06.9 Rheumatoid arthritis, unspecified; I10 Essential (primary) hypertension; R13.10 Dysphagia, unspecified; R53.1 Weakness; R07.89 Other chest pain; R53.83 Other fatigue; M19.90 Unspecified osteoarthritis, unspecified site; E78.00 Pure hypercholesterolemia, unspecified; K21.9 Gastro-esophageal reflux disease without esophagitis; H54.7 Unspecified visual loss; R01.1 Cardiac murmur, unspecified; Z88.6 Allergy status to analgesic agent; Z88.1 Allergy status to other antibiotic agents; Z91.041 Radiographic dye allergy status; Z88.5 Allergy status to narcotic agent; Z88.0 Allergy status to penicillin; Z88.2 Allergy status to sulfonamides; Z88.8 Allergy status to other drugs, medicaments and biological substances
CPT/HCPCS: 36415; 71010; 71010-26; 80048; 80053; 81001; 84484; 85025; 85027; 93005; 93010; 96374; 96375; 97162-GP; 97530-GP; 97535-GP; 99285; 99285-25; A9270-GY; J0456; J0696; J1650; J2930; J7040; J7050

== ENCOUNTER 2017-12-25 12:58 | Emergency (ER) | payer MEDICARE, MEDICAID ==
[2017-12-25] MEDS ORDERED: Ketorolac 60 MG/2 ML SDV IM ONE (13:29)
[2017-12-25] MEDS ORDERED: Cyclobenzaprine 10 MG Tab PO ONE (13:29)
--- NOTE | 2017-12-25 13:34 | EDM.PDOC ---
ED HPI GENERAL MEDICAL PROBLEM - General Chief Complaint: Back Pain or Injury Stated Complaint: [facility] Time Seen by Provider: 12/25/17 13:24 Source of Information: Reports: Patient, EMS, RN Notes Reviewed History Limitations: Reports: No Limitations - History of Present Illness INITIAL COMMENTS - FREE TEXT/NARRATIVE: 77-year-old female presents emergency department today via EMS services complaint of mid back pain, she states she was reaching around undo her bra strap sudden onset of mid back pain predominately on the right side, no loss of bowel or bladder no shortness of breath no chest pain Back Pain Score (Numeric/FACES): 10 - Related Data Allergies Allergy/AdvReac Type Severity Reaction Status Date / Time moxifloxacin HCl Allergy Severe Seizure Verified 12/25/17 13:12 [From Avelox] indomethacin Allergy Intermediate Itching Verified 12/25/17 13:12 azathioprine Allergy Unknown Itching Verified 12/25/17 13:12 cephalexin monohydrate Allergy Unknown Itching Verified 12/25/17 13:12 [From Keflex] clindamycin HCl Allergy Unknown Itching Verified 12/25/17 13:12 [From Cleocin] codeine Allergy Unknown Itching Verified 12/25/17 13:12 doxycycline Allergy Unknown Itching Verified 12/25/17 13:12 erythromycin base Allergy Unknown Itching Verified 12/25/17 13:12 [Erythromycin Base] etodolac [Etodolac] Allergy Unknown Itching Verified 12/25/17 13:12 methotrexate Allergy Unknown Itching Verified 12/25/17 13:12 paroxetine HCl [From Paxil] Allergy Unknown Itching Verified 12/25/17 13:12 Penicillins Allergy Unknown Itching Verified 12/25/17 13:12 Sulfa (Sulfonamide Allergy Unknown Itching Verified 12/25/17 13:12 Antibiotics) ibuprofen Allergy Cannot Verified 12/25/17 13:12 Remember Iodinated Contrast- Oral and Allergy Cannot Verified 12/25/17 13:12 IV Dye Remember lisinopril Allergy Cannot Verified 12/25/17 13:12 Remember sulfasalazine Allergy Cannot Verified 12/25/17 13:12 [From Azulfidine] Remember sertraline HCl [From Zoloft] AdvReac Unknown Weakness Verified 12/25/17 13:12 prednisone AdvReac Joint Pain Verified 12/25/17 13:12 Home Meds: Home Meds Zolpidem Tartrate [Ambien] 5 mg PO BEDTIME PRN 10/08/13 [History] atorvaSTATin [Lipitor] 40 mg PO BEDTIME 10/08/13 [History] amLODIPine [Norvasc] 5 mg PO DAILY 09/30/15 [History] Cyanocobalamin (Vitamin B-12) [Vitamin B-12] 1,000 mcg PO DAILY 06/10/17 [ History] Furosemide [Lasix] 20 mg PO DAILY PRN 06/10/17 [History] Acetaminophen/HYDROcodone [[place] 325-5 MG] 1 tab PO BID PRN 07/24/17 [History] Ammonium Lactate [Lac-Hydrin 12% Crm] 1 dose TOP BID PRN 07/24/17 [History] Esomeprazole [NexIUM] 1 cap PO ASDIRECTED 07/24/17 [History] Multivitamin [Multivitamins] 1 cap PO DAILY 07/24/17 [History] methylPREDNISolone [Methylprednisolone] 8 mg PO DAILY 07/25/17 [History] Past Medical History HEENT History: Reports: Impaired Vision, Other (See Below) Other HEENT History: 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 Cardiovascular History: Reports: Heart Murmur, High Cholesterol, Hypertension Gastrointestinal History: Reports: GERD Genitourinary History: Reports: Urinary Incontinence Other Genitourinary History: urinary frequency RESPIRATORY PRACTITIONER History: Reports: Musculoskeletal History: Reports: Arthritis, Osteoarthritis, Osteoporosis, RA Other Musculoskeletal History: polymyalgia rheumatica Neurological History: Reports: Seizure, Other (See Below) 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 Psychiatric History: Reports: Anxiety, Depression Endocrine/Metabolic History: Reports: Other (See Below) Other Endocrine/Metabolic History: Pre diabetic - Infectious Disease History Infectious Disease History: Reports: Chicken Pox, Shingles - Past Surgical History HEENT Surgical History: Reports: Cataract Surgery, Tonsillectomy, Other (See Below) Cardiovascular Surgical History: Reports: None Respiratory Surgical History: Reports: None GI Surgical History: Reports: Colonoscopy Female Surgical History: Reports: None Neurological Surgical History: Reports: None Musculoskeletal Surgical History: Reports: None Oncologic Surgical History: Reports: None Dermatological Surgical History: Reports: None Social & Family History - Family History Family Medical History: Noncontributory - Tobacco Use Smoking Status *Q: Never Smoker Second Hand Smoke Exposure: No - Caffeine Use Caffeine Use: Reports: None, Coffee Caffeine Use Comment: decaf coffee - Alcohol Use Days Per Week of Alcohol Use: 0 - Recreational Drug Use Recreational Drug Use: No ED ROS GENERAL - Review of Systems Review Of Systems: See Below Constitutional: Reports: No Symptoms Respiratory: Reports: No Symptoms Cardiovascular: Reports: No Symptoms GI/Abdominal: Reports: No Symptoms : Reports: No Symptoms Musculoskeletal: Reports: Back Pain Neurological: Reports: No Symptoms ED EXAM, UPPER BACK/NECK PAIN - Physical Exam Exam: See Below Text/Narrative:: Examination of the back she does have full range of motion I don't appreciate any erythema edema no trauma, there is no CVA tenderness she is tender predominate right side paraspinal region T4 area Examination of the gluteal cleft she does have breakdown of the skin left side of the gluteal cleft grade 2 ulcer Exam Limited By: No Limitations General Appearance: Alert, WD/WN, No Apparent Distress Cardiovascular/Respiratory: No Respiratory Distress Course - Vital Signs Last Recorded V/S: Last Vital Signs Temp 98.0 F 12/25/17 13:07 Pulse 88 12/25/17 15:21 Resp 16 12/25/17 15:21 BP 153/74 H 12/25/17 15:21 Pulse Ox 94 L 12/25/17 15:21 - Orders/Labs/Meds Orders: Active Orders 24 hr Category Date Time Status Lumbar Spine Min 4V [CR] Stat Exams 12/25/17 15:00 Taken Thoracic Spine 2V [CR] Stat Exams 12/25/17 15:00 Taken Meds: Medications Discontinued Medications Generic Name Dose Route Start Last Admin Trade Name Jacoby PRN Reason Stop Dose Admin Cyclobenzaprine HCl 10 mg 12/25/17 13:29 12/25/17 13:37 Flexeril PO 12/25/17 13:30 10 mg ONETIME ONE Administration Ketorolac Tromethamine 60 mg 12/25/17 13:29 12/25/17 13:37 Toradol IM 12/25/17 13:30 60 mg ONETIME ONE Administration Departure - Departure Time of Disposition: 16:21 Disposition: Home, Self-Care 01 Condition: Fair Clinical Impression: Back pain Qualifiers: Back pain location: thoracic back pain Chronicity: unspecified Back pain laterality: right Qualified Code(s): M54.6 - Pain in thoracic spine Ulcer, skin, chronic Qualifiers: Non-pressure ulcer stage: limited to breakdown of skin Qualified Code(s): L98.491 - Non-pressure chronic ulcer of skin of other sites limited to breakdown of skin - Discharge Information Referrals: PCP,None [Primary Care Provider] - Forms: ED Department Discharge Additional Instructions: Continue regular medications, Please followup with your primary care provider in 3-5 days if not better, please call return to the emergency department with worsening of symptoms. - My Orders Last 24 Hours: My Active Orders 12/25/17 15:00 Lumbar Spine Min 4V [CR] Stat Thoracic Spine 2V [CR] Stat - Assessment/Plan Last 24 Hours: My Active Orders 12/25/17 15:00 Lumbar Spine Min 4V [CR] Stat Thoracic Spine 2V [CR] Stat Plan: Assessment Acuity = acute Site and laterality = mid back pain, grade 2 ulcer left gluteal cleft Etiology = twisting injury for back pain skin breakdown for the grade 2 ulcer Manifestations = none] Location of injury = Home Lab values = thoracal and lumbar films I did review films myself I cannot appreciate any acute process, the official read from radiology is pending Plan Continue regular medications follow-up with primary care in 3-5 days for reevaluation This note was dictated using [employer] voice recognition software please call with any questions on syntax or meño.
[2017-12-25 15:24] VITALS: BP 153/74
--- NOTE | 2017-12-26 10:34 | CR ---
5 lumbar type vertebral bodies. Left convex curve of the lumbar spine. Moderate compression of the L2 vertebral body was evident on a remote MRI 08/15/2016. Facet arthropathy lower lumbar spine. Disc he ight loss is most evident L5-S1. Anterolisthesis most evident at L4-5 on flexion. There is some reduc tion on extension. Mild anterolisthesis L5-S1 is similar on flexion and extension. Atherosclerotic ao rta.
--- NOTE | 2017-12-26 10:37 | CR ---
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 Upper thoracic spine is limited. There does appear to be advanced compression deformity of the midthoracic spine. This is age-indeterminate. This is at or adjacent to T6 level. Consider MRI follow-up for acuity.
== END 2017-12-25 16:55 | disposition home or self-care (01) ==
LOC: JP.ED 12:58
DX: M54.6 Pain in thoracic spine (principal); L98.411 Non-pressure chronic ulcer of buttock limited to breakdown of skin; F41.9 Anxiety disorder, unspecified; F32.9 Major depressive disorder, single episode, unspecified; K21.9 Gastro-esophageal reflux disease without esophagitis; M19.90 Unspecified osteoarthritis, unspecified site; I10 Essential (primary) hypertension; E78.00 Pure hypercholesterolemia, unspecified; Z79.899 Other long term (current) drug therapy; Z88.8 Allergy status to other drugs, medicaments and biological substances; Z88.1 Allergy status to other antibiotic agents; Z88.0 Allergy status to penicillin; Z88.2 Allergy status to sulfonamides; Z91.041 Radiographic dye allergy status
CPT/HCPCS: 72070; 72070-26; 72110; 72110-26; 96372; 99284; 99284-25; A9270-GY; J1885

== ENCOUNTER 2018-04-30 19:30 | Emergency (ER) | payer MEDICARE, MEDICAID ==
[2018-04-30] MEDS ORDERED: Ketorolac 30 MG/ML SDV IM ONE (20:08)
[2018-04-30] MEDS ORDERED: Acetaminophen 500 MG Tab PO ONE (20:09)
[2018-04-30] MEDS ORDERED: Gabapentin 300 MG Cap PO ONE (20:09)
[2018-04-30] MEDS ORDERED: traMADol 50 MG Tab PO ONE (20:10)
--- NOTE | 2018-04-30 20:16 | EDM.PDOC ---
ED HPI GENERAL MEDICAL PROBLEM - General Chief Complaint: General Stated Complaint: MEDICAL [facility]IA [facility] Time Seen by Provider: 04/30/18 19:50 Source of Information: Reports: Patient, Old Records History Limitations: Reports: No Limitations - History of Present Illness INITIAL COMMENTS - FREE TEXT/NARRATIVE: 77 yo female presents via EMS with a 4 day hx of R sciatica and a 2 day hx of R groin pain when she tries to bare weight. Awoke with the sciatica. Pain goes all the way down to her ankle. No hx of the same. Went to her chiropractor and he could not help her and did not give her advice as to what she should do next. Has not yet been to her doctor about this. Came now via EMS due to not being able to walk. Has taken some ibuprofen without relief. Onset Date: 04/27/18 Duration: Day(s): (4), Getting Worse Location: Reports: Lower Extremity, Right Quality: Reports: Burning Severity: Moderate Improves with: Reports: Rest Worsens with: Reports: Movement Context: Reports: Other (unknown) Associated Symptoms: Reports: Other (R groin pain x 2 d with wgt bearing) Treatments ACUTE CARE REGISTERED NURSE: Reports: NSAIDS Right Leg Pain Score (Numeric/FACES): 10 - Related Data Allergies Allergy/AdvReac Type Severity Reaction Status Date / Time moxifloxacin HCl Allergy Severe Seizure Verified 04/30/18 20:02 [From Avelox] indomethacin Allergy Intermediate Itching Verified 04/30/18 20:02 azathioprine Allergy Unknown Itching Verified 04/30/18 20:02 cephalexin monohydrate Allergy Unknown Itching Verified 04/30/18 20:02 [From Keflex] clindamycin HCl Allergy Unknown Itching Verified 04/30/18 20:02 [From Cleocin] codeine Allergy Unknown Itching Verified 04/30/18 20:02 doxycycline Allergy Unknown Itching Verified 04/30/18 20:02 erythromycin base Allergy Unknown Itching Verified 04/30/18 20:02 [Erythromycin Base] etodolac [Etodolac] Allergy Unknown Itching Verified 04/30/18 20:02 methotrexate Allergy Unknown Itching Verified 04/30/18 20:02 paroxetine HCl [From Paxil] Allergy Unknown Itching Verified 04/30/18 20:02 Penicillins Allergy Unknown Itching Verified 04/30/18 20:02 Sulfa (Sulfonamide Allergy Unknown Itching Verified 04/30/18 20:02 Antibiotics) ibuprofen Allergy Cannot Verified 04/30/18 20:02 Remember Iodinated Contrast- Oral and Allergy Cannot Verified 04/30/18 20:02 IV Dye Remember lisinopril Allergy Cannot Verified 04/30/18 20:02 Remember sulfasalazine Allergy Cannot Verified 04/30/18 20:02 [From Azulfidine] Remember sertraline HCl [From Zoloft] AdvReac Unknown Weakness Verified 04/30/18 20:02 prednisone AdvReac Joint Pain Verified 04/30/18 20:02 Home Meds: Home Meds Zolpidem Tartrate [Ambien] 5 mg PO BEDTIME PRN 10/08/13 [History] atorvaSTATin [Lipitor] 40 mg PO BEDTIME 10/08/13 [History] Cyanocobalamin (Vitamin B-12) [Vitamin B-12] 1,000 mcg PO DAILY 06/10/17 [ History] Furosemide [Lasix] 20 mg PO DAILY PRN 06/10/17 [History] Acetaminophen/HYDROcodone [[place] 325-5 MG] 1 tab PO BID PRN 07/24/17 [History] Ammonium Lactate [Lac-Hydrin 12% Crm] 1 dose TOP BID PRN 07/24/17 [History] Esomeprazole [NexIUM] 1 cap PO ASDIRECTED 07/24/17 [History] Multivitamin [Multivitamins] 1 cap PO DAILY 07/24/17 [History] methylPREDNISolone [Methylprednisolone] 8 mg PO DAILY 07/25/17 [History] Gabapentin [Neurontin] 300 mg PO BID PRN #14 capsule 04/30/18 [Rx] Past Medical History HEENT History: Reports: Impaired Vision, Other (See Below) Other HEENT History: 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 Cardiovascular History: Reports: Heart Murmur, High Cholesterol, Hypertension Respiratory History: Reports: None Gastrointestinal History: Reports: GERD Genitourinary History: Reports: Urinary Incontinence Other Genitourinary History: urinary frequency [employer]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: Musculoskeletal History: Reports: Arthritis, Osteoarthritis, Osteoporosis, RA Other Musculoskeletal History: polymyalgia rheumatica Neurological History: Reports: Seizure, Other (See Below) 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 Psychiatric History: Reports: Anxiety, Depression Endocrine/Metabolic History: Reports: Other (See Below) Other Endocrine/Metabolic History: Pre diabetic Hematologic History: Reports: None Immunologic History: Reports: None Oncologic (Cancer) History: Reports: None Dermatologic History: Reports: None - Infectious Disease History Infectious Disease History: Reports: Chicken Pox, Shingles - Past Surgical History HEENT Surgical History: Reports: Cataract Surgery, Tonsillectomy, Other (See Below) Cardiovascular Surgical History: Reports: None Respiratory Surgical History: Reports: None GI Surgical History: Reports: Colonoscopy Female Surgical History: Reports: None Neurological Surgical History: Reports: None Musculoskeletal Surgical History: Reports: None Oncologic Surgical History: Reports: None Dermatological Surgical History: Reports: None Social & Family History - Family History Family Medical History: Noncontributory - Tobacco Use Smoking Status *Q: Never Smoker - Caffeine Use Caffeine Use: Reports: None Caffeine Use Comment: decaf coffee - Recreational Drug Use Recreational Drug Use: No ED ROS GENERAL - Review of Systems Review Of Systems: See Below Constitutional: Reports: No Symptoms HEENT: Reports: No Symptoms Respiratory: Reports: No Symptoms Cardiovascular: Reports: No Symptoms GI/Abdominal: Reports: No Symptoms : Reports: No Symptoms Musculoskeletal: Reports: Other (R hip pain) Skin: Reports: No Symptoms Neurological: Reports: Other (pain from R buttocks to ankle) Psychiatric: Reports: No Symptoms ED EXAM, GENERAL - Physical Exam Exam: See Below Exam Limited By: No Limitations General Appearance: Alert, WD/WN, No Apparent Distress Eye Exam: Bilateral Eye: Normal Inspection Ears: Normal External Exam, Normal Canal, Hearing Grossly Normal Ear Exam: Bilateral Ear: Auricle Normal, Canal Normal Nose: Normal Inspection, Normal Mucosa, No Blood Throat/Mouth: Normal Inspection, Normal Lips, Normal Oropharynx, Normal Voice, No Airway Compromise Head: Atraumatic, Normocephalic Neck: Normal Inspection, Supple, Non-Tender Respiratory/Chest: No Respiratory Distress, Lungs Clear, Normal Breath Sounds, No Accessory Muscle Use Cardiovascular: Regular Rate, Rhythm GI/Abdominal: Normal Bowel Sounds, Soft, Non-Tender Back Exam: Normal Inspection. No: CVA Tenderness (R), CVA Tenderness (L), Paraspinal Tenderness, Vertebral Tenderness Extremities: Normal Inspection, Normal Range of Motion, Leg Pain (R buttocks over sciatic notch with palpation. ). No: Limited Range of Motion, Redness Neurological: Alert, Oriented, CN II-XII Intact, Normal Cognition, No Motor/ Sensory Deficits, Other (Straight leg raising is +/-) Psychiatric: Normal Affect, Normal Mood Skin Exam: Warm, Dry, Intact, Normal Color, No Rash Course - Vital Signs Text/Narrative:: Initially told me her legs were not any more red than usual, later decided that they were more red. Says she was confused by the number of questions being asked initially. Last Recorded V/S: Last Vital Signs Temp 36.9 C 04/30/18 20:13 Pulse 80 04/30/18 20:13 Resp 18 04/30/18 20:13 BP 171/78 H 04/30/18 20:13 Pulse Ox 94 L 04/30/18 20:13 - Orders/Labs/Meds Orders: Active Orders 24 hr Category Date Time Status Hip Min 2V or 3V Rt [CR] Stat Exams 04/30/18 20:07 Taken Meds: Medications Discontinued Medications Generic Name Dose Route Start Last Admin Trade Name Freq PRN Reason Stop Dose Admin Acetaminophen 1,000 mg 04/30/18 20:09 04/30/18 20:19 Tylenol Extra Strength PO 04/30/18 20:10 1,000 mg ONETIME ONE Administration Gabapentin 300 mg 04/30/18 20:09 04/30/18 20:19 Neurontin PO 04/30/18 20:10 300 mg ONETIME ONE Administration Ketorolac Tromethamine 15 mg 04/30/18 20:08 04/30/18 20:20 Toradol IM 04/30/18 20:09 15 mg ONETIME ONE Administration Tramadol HCl 50 mg 04/30/18 20:10 04/30/18 20:19 Ultram PO 04/30/18 20:11 50 mg ONETIME ONE Administration - Radiology Interpretation Free Text/Narrative:: R hip X-ray-some degen changes, no fx Departure - Departure Time of Disposition: 21:39 Disposition: Home, Self-Care 01 Condition: Fair Clinical Impression: Hip pain, right Cellulitis Qualifiers: Site of cellulitis: extremity Site of cellulitis of extremity: lower extremity Laterality: unspecified laterality Qualified Code(s): L03.119 - Cellulitis of unspecified part of limb Sciatica Qualifiers: Laterality: right Qualified Code(s): M54.31 - Sciatica, right side - Discharge Information Referrals: PCP,None [Primary Care Provider] - Forms: ED Department Discharge - My Orders Last 24 Hours: My Active Orders 04/30/18 20:07 Hip Min 2V or 3V Rt [CR] Stat - Assessment/Plan Last 24 Hours: My Active Orders 04/30/18 20:07 Hip Min 2V or 3V Rt [CR] Stat
[2018-04-30 21:26] VITALS: BP 176/76
--- NOTE | 2018-05-01 10:56 | CR ---
Hip Min 2V or 3V Rt INDICATION: R hip pain, can't stand, no injury COMPARISON: None FINDINGS: 2 views. No fracture or dislocation. Mild degenerative joint disease. Vascular calcificati ons.
== END 2018-04-30 22:08 | disposition home or self-care (01) ==
LOC: JP.ED 19:30
DX: L03.115 Cellulitis of right lower limb (principal); M54.31 Sciatica, right side; K21.9 Gastro-esophageal reflux disease without esophagitis; E78.00 Pure hypercholesterolemia, unspecified; I10 Essential (primary) hypertension; Z88.1 Allergy status to other antibiotic agents; Z88.5 Allergy status to narcotic agent; Z88.0 Allergy status to penicillin; Z88.2 Allergy status to sulfonamides; Z91.041 Radiographic dye allergy status; Z88.8 Allergy status to other drugs, medicaments and biological substances; Z79.899 Other long term (current) drug therapy
CPT/HCPCS: 73502; 99284; A9270; J1885

== ENCOUNTER 2018-05-03 17:41 | Emergency (ER) | payer MEDICARE, MEDICAID ==
[2018-05-03 17:44] VITALS: BP 167/79
[2018-05-03] MEDS ORDERED: traMADol 50 MG Tab PO ONE (18:52)
--- NOTE | 2018-05-03 20:05 | EDM.PDOC ---
ED HPI GENERAL MEDICAL PROBLEM - General Chief Complaint: Lower Extremity Injury/Pain Stated Complaint: MEDICAL [facility]IA [facility] Time Seen by Provider: 05/03/18 18:43 Source of Information: Reports: Patient History Limitations: Reports: No Limitations - History of Present Illness INITIAL COMMENTS - FREE TEXT/NARRATIVE: This lady comes in complaining about right hip pain. She was seen in ER on 30 April. Xrays were done and were neg. She was put on Gabapentin and tramadol but is taking Tramadol just 1 tab spradically. She has no tried 2 tabs at once. Right Hip Pain Score (Numeric/FACES): 5 - Related Data Allergies Allergy/AdvReac Type Severity Reaction Status Date / Time moxifloxacin HCl Allergy Severe Seizure Verified 04/30/18 20:02 [From Avelox] indomethacin Allergy Intermediate Itching Verified 04/30/18 20:02 azathioprine Allergy Unknown Itching Verified 04/30/18 20:02 cephalexin monohydrate Allergy Unknown Itching Verified 04/30/18 20:02 [From Keflex] clindamycin HCl Allergy Unknown Itching Verified 04/30/18 20:02 [From Cleocin] codeine Allergy Unknown Itching Verified 04/30/18 20:02 doxycycline Allergy Unknown Itching Verified 04/30/18 20:02 erythromycin base Allergy Unknown Itching Verified 04/30/18 20:02 [Erythromycin Base] etodolac [Etodolac] Allergy Unknown Itching Verified 04/30/18 20:02 methotrexate Allergy Unknown Itching Verified 04/30/18 20:02 paroxetine HCl [From Paxil] Allergy Unknown Itching Verified 04/30/18 20:02 Penicillins Allergy Unknown Itching Verified 04/30/18 20:02 Sulfa (Sulfonamide Allergy Unknown Itching Verified 04/30/18 20:02 Antibiotics) ibuprofen Allergy Cannot Verified 04/30/18 20:02 Remember Iodinated Contrast- Oral and Allergy Cannot Verified 04/30/18 20:02 IV Dye Remember lisinopril Allergy Cannot Verified 04/30/18 20:02 Remember sulfasalazine Allergy Cannot Verified 04/30/18 20:02 [From Azulfidine] Remember sertraline HCl [From Zoloft] AdvReac Unknown Weakness Verified 04/30/18 20:02 prednisone AdvReac Joint Pain Verified 04/30/18 20:02 Home Meds: Home Meds Zolpidem Tartrate [Ambien] 5 mg PO BEDTIME PRN 10/08/13 [History] atorvaSTATin [Lipitor] 40 mg PO BEDTIME 10/08/13 [History] Cyanocobalamin (Vitamin B-12) [Vitamin B-12] 1,000 mcg PO DAILY 06/10/17 [ History] Furosemide [Lasix] 20 mg PO DAILY PRN 06/10/17 [History] Acetaminophen/HYDROcodone [[place] 325-5 MG] 1 tab PO BID PRN 07/24/17 [History] Ammonium Lactate [Lac-Hydrin 12% Crm] 1 dose TOP BID PRN 07/24/17 [History] Esomeprazole [NexIUM] 1 cap PO ASDIRECTED 07/24/17 [History] Multivitamin [Multivitamins] 1 cap PO DAILY 07/24/17 [History] methylPREDNISolone [Methylprednisolone] 8 mg PO DAILY 07/25/17 [History] Gabapentin [Neurontin] 300 mg PO BID PRN #14 capsule 04/30/18 [Rx] Past Medical History HEENT History: Reports: Impaired Vision, Other (See Below) Other HEENT History: 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 Cardiovascular History: Reports: Heart Murmur, High Cholesterol, Hypertension Respiratory History: Reports: None Gastrointestinal History: Reports: GERD Genitourinary History: Reports: Urinary Incontinence Other Genitourinary History: urinary frequency 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: Musculoskeletal History: Reports: Arthritis, Osteoarthritis, Osteoporosis, RA Other Musculoskeletal History: polymyalgia rheumatica Neurological History: Reports: Seizure, Other (See Below) 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 Psychiatric History: Reports: Anxiety, Depression Endocrine/Metabolic History: Reports: Other (See Below) Other Endocrine/Metabolic History: Pre diabetic Hematologic History: Reports: None Immunologic History: Reports: None Oncologic (Cancer) History: Reports: None Dermatologic History: Reports: None - Infectious Disease History Infectious Disease History: Reports: Chicken Pox, Shingles - Past Surgical History HEENT Surgical History: Reports: Cataract Surgery, Tonsillectomy, Other (See Below) Cardiovascular Surgical History: Reports: None Respiratory Surgical History: Reports: None GI Surgical History: Reports: Colonoscopy Female Surgical History: Reports: None Neurological Surgical History: Reports: None Musculoskeletal Surgical History: Reports: None Oncologic Surgical History: Reports: None Dermatological Surgical History: Reports: None Social & Family History - Family History Family Medical History: Noncontributory - Tobacco Use Smoking Status *Q: Never Smoker - Caffeine Use Caffeine Use: Reports: Coffee Caffeine Use Comment: decaf coffee - Recreational Drug Use Recreational Drug Use: No Review of Systems - Review of Systems Review Of Systems: ROS reveals no pertinent complaints other than HPI. ED EXAM, GENERAL - Physical Exam Exam: See Below Exam Limited By: No Limitations General Appearance: Alert, WD/WN, No Apparent Distress Respiratory/Chest: Lungs Clear Cardiovascular: Regular Rate, Rhythm GI/Abdominal: Non-Tender Extremities: Other (right hip is non-tender. Some discomfort on passive ROM as might be expected. Review xrays. Gave 2 tabs 50 my Tradol. Pt sleeping afterward. Still says she has some pain but obviously comfortable.) Course - Vital Signs Last Recorded V/S: Last Vital Signs Temp 36.6 C 05/03/18 17:54 Pulse 92 05/03/18 17:54 Resp 18 05/03/18 17:54 BP 167/79 H 05/03/18 17:54 Pulse Ox 95 05/03/18 17:54 - Orders/Labs/Meds Meds: Medications Discontinued Medications Generic Name Dose Route Start Last Admin Trade Name Jacoby PRN Reason Stop Dose Admin Tramadol HCl 100 mg 05/03/18 18:52 05/03/18 18:57 Ultram PO 05/03/18 18:53 100 mg ONETIME ONE Administration Departure - Departure Time of Disposition: 20:02 Disposition: Home, Self-Care 01 Preliminary Cause of *Q: Sepsis & Multi System Organ Failure Clinical Impression: Chronic right hip pain - Discharge Information Instructions: Hip Pain Referrals: PCP,None [Primary Care Provider] - Forms: ED Department Discharge Additional Instructions: You have not been taking Tramadol as prescribed. If 1 tablet is not helping then you may take 2 tablets at the same time every 4-6 hours. It probably won' t completely relieve the pain but rather just make it less intense. If pain continues then see your doctor on Saturday.
== END 2018-05-03 22:54 | disposition home or self-care (01) ==
LOC: JP.ED 17:41
DX: M25.551 Pain in right hip (principal); G89.29 Other chronic pain; I10 Essential (primary) hypertension; Z88.5 Allergy status to narcotic agent; Z88.8 Allergy status to other drugs, medicaments and biological substances; Z88.1 Allergy status to other antibiotic agents; Z88.2 Allergy status to sulfonamides; Z79.899 Other long term (current) drug therapy
CPT/HCPCS: 99283; A9270

== ENCOUNTER 2019-01-05 06:52 | Inpatient (IN) | payer MEDICARE, MEDICAID ==
[2019-01-05] MEDS ORDERED: diphenhydrAMINE 50 MG/ML SDV IVPUSH ONE (07:22)
[2019-01-05] MEDS ORDERED: Lactated Ringers 1,000 ML IV SCH (07:30)
[2019-01-05] MEDS ORDERED: Meropenem 1 GM in Sodium Chloride 0.9% 100 ML IV SCH ×2 (07:30→08:00)
[2019-01-05] MEDS ORDERED: Acetaminophen 325 MG Tab PO ONE (07:48)
--- NOTE | 2019-01-05 07:48 | EDM.PDOC ---
ED HPI GENERAL MEDICAL PROBLEM - General Chief Complaint: Fever Stated Complaint: NAUSEA VOMITING Time Seen by Provider: 01/05/19 07:12 Source of Information: Reports: Patient, EMS, RN Notes Reviewed History Limitations: Reports: No Limitations - History of Present Illness INITIAL COMMENTS - FREE TEXT/NARRATIVE: 78-year-old female presents emergency department today via EMS services for fever and feeling poorly, she recently had a urinary tract infection last week by report by EMS staff states she does have foul-smelling urine. She states she started feeling ill over the last 12 hours with fevers no nausea vomiting shortness breath or chest pain she is very weak - Related Data Allergies Allergy/AdvReac Type Severity Reaction Status Date / Time moxifloxacin HCl Allergy Severe Seizure Verified 01/05/19 07:24 [From Avelox] indomethacin Allergy Intermediate Itching Verified 01/05/19 07:24 azathioprine Allergy Unknown Itching Verified 01/05/19 07:24 cephalexin monohydrate Allergy Unknown Itching Verified 01/05/19 07:24 [From Keflex] clindamycin HCl Allergy Unknown Itching Verified 01/05/19 07:24 [From Cleocin] codeine Allergy Unknown Itching Verified 01/05/19 07:24 doxycycline Allergy Unknown Itching Verified 01/05/19 07:24 erythromycin base Allergy Unknown Itching Verified 01/05/19 07:24 [Erythromycin Base] etodolac [Etodolac] Allergy Unknown Itching Verified 01/05/19 07:24 methotrexate Allergy Unknown Itching Verified 01/05/19 07:24 paroxetine HCl [From Paxil] Allergy Unknown Itching Verified 01/05/19 07:24 Penicillins Allergy Unknown Itching Verified 01/05/19 07:24 Sulfa (Sulfonamide Allergy Unknown Itching Verified 01/05/19 07:24 Antibiotics) ibuprofen Allergy Cannot Verified 01/05/19 07:24 Remember Iodinated Contrast- Oral and Allergy Cannot Verified 01/05/19 07:24 IV Dye Remember lisinopril Allergy Cannot Verified 01/05/19 07:24 Remember sulfasalazine Allergy Cannot Verified 01/05/19 07:24 [From Azulfidine] Remember sertraline HCl [From Zoloft] AdvReac Unknown Weakness Verified 01/05/19 07:24 prednisone AdvReac Joint Pain Verified 01/05/19 07:24 Home Meds: Home Meds Cyanocobalamin (Vitamin B-12) [Vitamin B-12] 1,000 mcg PO DAILY 06/10/17 [ History] Furosemide [Lasix] 40 mg PO DAILY 06/10/17 [History] methylPREDNISolone [Methylprednisolone] 8 mg PO DAILY 07/25/17 [History] Acetaminophen [Tylenol] 650 mg PO QID PRN 08/06/18 [History] Calcium Carbonate/Vitamin D3 [Calcium 600 + Vit D 400 Softgl] 1 each PO ASDIRECTED PRN 08/06/18 [History] Potassium Chloride 20 meq PO TID 08/06/18 [History] Rosuvastatin Calcium 5 mg PO BEDTIME 08/06/18 [History] Diclofenac Sodium [Voltaren] 1 dose TOP TID 09/22/18 [History] Menthol/Zinc Oxide [Calmoseptine] 1 applic TOP BID 09/22/18 [History] Gabapentin [Neurontin] 100 mg PO BID #60 capsule 09/25/18 [Rx] Atropine Sulfate In 0.9% NaCl [Atropine 0.01%-Ns Eye Drops] 1 drop EYELF DAILY 01/05/19 [History] Bismuth Subsalicylate [Pepto Bismol] 30 ml PO Q4HR PRN 01/05/19 [History] Citalopram Hydrobromide [Celexa] 10 mg PO DAILY 01/05/19 [History] Diclofenac Sodium [Voltaren] 1 applic TOP Q6HR PRN 01/05/19 [History] Esomeprazole [NexIUM] 40 mg PO DAILY 01/05/19 [History] Amanda Seal/Echinacea Purpurea [Echinacea & Goldenseal] 1 cap PO BID PRN [History] Menthol [Biofreeze] 1 applic TOP TID PRN 01/05/19 [History] Ondansetron HCl [Zofran] 4 mg PO Q8HR PRN 01/05/19 [History] prednisoLONE acetate [Pred Forte 1% Ophth Susp] 1 drop EYELF TID 01/05/19 [ History] Past Medical History HEENT History: Reports: Impaired Vision, Other (See Below) Other HEENT History: 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 Cardiovascular History: Reports: Heart Murmur, High Cholesterol, Hypertension Gastrointestinal History: Reports: GERD Genitourinary History: Reports: Urinary Incontinence Other Genitourinary History: urinary frequency [employer] EXPERIMENTAL History: Reports: Musculoskeletal History: Reports: Arthritis, Osteoarthritis, Osteoporosis, RA Other Musculoskeletal History: polymyalgia rheumatica Neurological History: Reports: Seizure, Other (See Below) 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 Psychiatric History: Reports: Anxiety, Depression Endocrine/Metabolic History: Reports: Other (See Below) Other Endocrine/Metabolic History: Pre diabetic - Infectious Disease History Infectious Disease History: Reports: Chicken Pox, Shingles - Past Surgical History HEENT Surgical History: Reports: Cataract Surgery, Tonsillectomy, Other (See Below) GI Surgical History: Reports: Colonoscopy Social & Family History - Family History Family Medical History: Noncontributory - Tobacco Use Smoking Status *Q: Never Smoker - Caffeine Use Caffeine Use: Reports: Coffee Caffeine Use Comment: decaf coffee - Recreational Drug Use Recreational Drug Use: No ED ROS GENERAL - Review of Systems Review Of Systems: See Below Constitutional: Reports: Fever, Chills, Weakness HEENT: Reports: No Symptoms Respiratory: Reports: No Symptoms Cardiovascular: Reports: No Symptoms GI/Abdominal: Reports: No Symptoms : Reports: Frequency Musculoskeletal: Reports: No Symptoms Skin: Reports: No Symptoms Neurological: Reports: No Symptoms ED EXAM, SEPSIS - Physical Exam Exam: See Below Exam Limited By: No Limitations General Appearance: Alert, No Apparent Distress Head: Atraumatic, Normocephalic Neck: Normal Inspection, Supple, Non-Tender, Full Range of Motion Respiratory/Chest: No Respiratory Distress, Lungs Clear, Normal Breath Sounds, No Accessory Muscle Use Cardiovascular: Tachycardia, Systolic Murmur GI/Abdominal Exam: Soft, Non-Tender Course - Vital Signs Last Recorded V/S: Last Vital Signs Temp 214.5 F H 01/05/19 07:55 Pulse 95 01/05/19 07:33 Resp 20 01/05/19 07:33 BP 194/86 H 01/05/19 07:33 Pulse Ox 89 L 01/05/19 07:33 - Orders/Labs/Meds Orders: Active Orders 24 hr Category Date Time Status Vital Signs [RC] Q1H Care 01/05/19 07:17 Active CULTURE BLOOD [BC] Urgent Lab 01/05/19 07:15 Received CULTURE BLOOD [BC] Urgent Lab 01/05/19 07:24 Received CULTURE URINE [RM] Stat Lab 01/05/19 07:17 Received Lactated Ringers [Ringers, Lactated] 1,000 ml Med 01/05/19 07:30 Active IV ASDIRECTED Lactated Ringers [Ringers, Lactated] 1,000 ml Med 01/05/19 08:48 Active IV BOLUS Meropenem [Merrem] 1 gm Med 01/05/19 08:00 Active Sodium Chloride 0.9% [Normal Saline] 100 ml IV Q8H Blood Culture x2 Reflex Set [OM.PC] Urgent Oth 01/05/19 07:17 Ordered Blood Culture x2 Reflex Set [OM.PC] Urgent Oth 01/05/19 07:21 Ordered Medication Orders Lactated Ringer's (Ringers, Lactated) 1,000 mls @ 999 mls/hr IV ASDIRECTED NORMA Last Admin: 01/05/19 07:28 Dose: 999 mls/hr Meropenem 1 gm/ Sodium (Chloride) 100 mls @ 200 mls/hr IV Q8H NORMA Last Admin: 01/05/19 07:49 Dose: 200 mls/hr Lactated Ringer's (Ringers, Lactated) 1,000 mls @ 500 mls/hr IV BOLUS ONE Stop: 01/05/19 10:47 Last Admin: 01/05/19 08:50 Dose: 500 mls/hr Labs: Laboratory Tests 01/05/19 01/05/19 01/05/19 Range/Units 07:15 07:15 07:15 WBC 13.1 H (4.5-11.0) K/uL RBC 4.24 (3.30-5.50) M/uL Hgb 12.4 (12.0-15.0) g/dL Hct 39.6 (36.0-48.0) % MCV 93 (80-98) fL MCH 29 (27-31) pg MCHC 31 L (32-36) % Plt Count 152 (150-400) K/uL Neut % (Auto) 76 H (36-66) % Lymph % (Auto) 14 L (24-44) % [place] % (Auto) 9 H (2-6) % Eos % (Auto) 1 L (2-4) % Baso % (Auto) 0 (0-1) % Sodium 140 (140-148) mmol/L Potassium 3.3 L (3.6-5.2) mmol/L Chloride 101 (100-108) mmol/L Carbon Dioxide 31 (21-32) mmol/L Anion Gap 11.3 (5.0-14.0) mmol/L BUN 18 (7-18) mg/dL Creatinine 0.9 (0.6-1.0) mg/dL Est Cr Clr Drug Dosing 44.86 mL/min Estimated GFR (MDRD) > 60 (>60) Glucose 109 H (74-106) mg/dL Lactic Acid 2.0 (0.4-2.0) mmol/L Calcium 8.6 (8.5-10.1) mg/dL Total Bilirubin 0.4 (0.2-1.0) mg/dL AST 31 (15-37) U/L ALT 37 (12-78) U/L Alkaline Phosphatase 77 (46-116) U/L C-Reactive Protein 1.82 H (0.0-0.3) mg/dL Total Protein 6.4 (6.4-8.2) g/dL Albumin 2.7 L (3.4-5.0) g/dL Globulin 3.7 H (2.3-3.5) g/dL Albumin/Globulin Ratio 0.7 L (1.2-2.2) Urine Color Urine Appearance Urine pH (4.5-8.0) Ur Specific [place] (1.008-1.030) Urine Protein (NEGATIVE) mg/dL Urine Glucose (UA) (NEGATIVE) mg/dL Urine Ketones (NEGATIVE) mg/dL Urine Occult Blood (NEGATIVE) Urine Nitrite (NEGATIVE) Urine Bilirubin (NEGATIVE) Urine Urobilinogen (NORMAL) mg/dL Ur Leukocyte Esterase (NEGATIVE) Urine RBC (0-5) Urine WBC (0-5) Ur Epithelial Cells Amorphous Sediment Urine Bacteria Urine Mucus 01/05/19 Range/Units 07:17 WBC (4.5-11.0) K/uL RBC (3.30-5.50) M/uL Hgb (12.0-15.0) g/dL Hct (36.0-48.0) % MCV (80-98) fL MCH (27-31) pg MCHC (32-36) % Plt Count (150-400) K/uL Neut % (Auto) (36-66) % Lymph % (Auto) (24-44) % [place] % (Auto) (2-6) % Eos % (Auto) (2-4) % Baso % (Auto) (0-1) % Sodium (140-148) mmol/L Potassium (3.6-5.2) mmol/L Chloride (100-108) mmol/L Carbon Dioxide (21-32) mmol/L Anion Gap (5.0-14.0) mmol/L BUN (7-18) mg/dL Creatinine (0.6-1.0) mg/dL Est Cr Clr Drug Dosing mL/min Estimated GFR (MDRD) (>60) Glucose (74-106) mg/dL Lactic Acid (0.4-2.0) mmol/L Calcium (8.5-10.1) mg/dL Total Bilirubin (0.2-1.0) mg/dL AST (15-37) U/L ALT (12-78) U/L Alkaline Phosphatase (46-116) U/L C-Reactive Protein (0.0-0.3) mg/dL Total Protein (6.4-8.2) g/dL Albumin (3.4-5.0) g/dL Globulin (2.3-3.5) g/dL Albumin/Globulin Ratio (1.2-2.2) Urine Color Yellow Urine Appearance Slightly cloudy Urine pH 7.0 (4.5-8.0) Ur Specific [place] 1.010 (1.008-1.030) Urine Protein Trace (NEGATIVE) mg/dL Urine Glucose (UA) Normal (NEGATIVE) mg/dL Urine Ketones Negative (NEGATIVE) mg/dL Urine Occult Blood Trace (NEGATIVE) Urine Nitrite Negative (NEGATIVE) Urine Bilirubin Negative (NEGATIVE) Urine Urobilinogen Normal (NORMAL) mg/dL Ur Leukocyte Esterase Moderate (NEGATIVE) Urine RBC 5-10 H (0-5) Urine WBC 10-20 H (0-5) Ur Epithelial Cells Rare Amorphous Sediment Not seen Urine Bacteria Many Urine Mucus Not seen Meds: Medications Generic Name Dose Route Start Last Admin Trade Name Freq PRN Reason Stop Dose Admin Lactated Ringer's 1,000 mls @ 999 mls/hr 01/05/19 07:30 01/05/19 07:28 Ringers, Lactated IV 999 mls/hr ASDIRECTED NORMA Administration Meropenem 1 gm/ Sodium 100 mls @ 200 mls/hr 01/05/19 08:00 01/05/19 07:49 Chloride IV 200 mls/hr Q8H NORMA Administration Lactated Ringer's 1,000 mls @ 500 mls/hr 01/05/19 08:48 01/05/19 08:50 Ringers, Lactated IV 01/05/19 10:47 500 mls/hr BOLUS ONE Administration Discontinued Medications Generic Name Dose Route Start Last Admin Trade Name Jacoby PRKaur Reason Stop Dose Admin Acetaminophen 650 mg 01/05/19 07:48 01/05/19 07:55 Tylenol PO 01/05/19 07:49 650 mg NOW ONE Administration Diphenhydramine HCl 25 mg 01/05/19 07:22 01/05/19 07:28 Benadryl IVPUSH 01/05/19 07:23 25 mg ONETIME ONE Administration Oseltamivir Phosphate 75 mg 01/05/19 09:04 Tamiflu PO 01/05/19 09:05 ONETIME ONE Departure - Departure Time of Disposition: 09:11 Disposition: Admitted As Inpatient 64 Condition: Fair Clinical Impression: Influenza B Urinary tract infection Qualifiers: Urinary tract infection type: acute cystitis Hematuria presence: with hematuria Qualified Code(s): N30.01 - Acute cystitis with hematuria - Discharge Information Referrals: PCP,None [Primary Care Provider] - Forms: ED Department Discharge - My Orders Last 24 Hours: My Active Orders 01/05/19 07:15 CULTURE BLOOD [BC] Urgent 01/05/19 07:17 Vital Signs [RC] Q1H CULTURE URINE [RM] Stat Blood Culture x2 Reflex Set [OM.PC] Urgent 01/05/19 07:21 Blood Culture x2 Reflex Set [OM.PC] Urgent 01/05/19 07:24 CULTURE BLOOD [BC] Urgent 01/05/19 07:30 Lactated Ringers [Ringers, Lactated] 1,000 ml IV ASDIRECTED 01/05/19 08:00 Meropenem [Merrem] 1 gm Sodium Chloride 0.9% [Normal Saline] 100 ml IV Q8H 01/05/19 08:48 Lactated Ringers [Ringers, Lactated] 1,000 ml IV BOLUS - Assessment/Plan Last 24 Hours: My Active Orders 01/05/19 07:15 CULTURE BLOOD [BC] Urgent 01/05/19 07:17 Vital Signs [RC] Q1H CULTURE URINE [RM] Stat Blood Culture x2 Reflex Set [OM.PC] Urgent 01/05/19 07:21 Blood Culture x2 Reflex Set [OM.PC] Urgent 01/05/19 07:24 CULTURE BLOOD [BC] Urgent 01/05/19 07:30 Lactated Ringers [Ringers, Lactated] 1,000 ml IV ASDIRECTED 01/05/19 08:00 Meropenem [Merrem] 1 gm Sodium Chloride 0.9% [Normal Saline] 100 ml IV Q8H 01/05/19 08:48 Lactated Ringers [Ringers, Lactated] 1,000 ml IV BOLUS Plan: Assessment Acuity = acute Site and laterality = influenza B with urinary tract infection Etiology = influenza and probable bacterial cause for urinary tract infection Manifestations = fever, weakness Location of injury = Home Lab values = WBC elevated at 13.1 consistent with leukocytosis potassium low at 2.3 consistent hypokalemia lactic acid normal 2.0 urinalysis revealed 5-10 rbc' s consists with a hematuria and 10-20 WBCs consistent with pyuria cultures pending, blood cultures are pending chest x-ray shows no acute process Plan She did receive 1 dose of Tamiflu and 1 dose of meropenem, called discussed case with hospitalist air route controller at [phone] kindly agreed to, and evaluate the patient emergency department for admission This note was dictated using [employer] voice recognition software please call with any questions on syntax or grammar.
--- NOTE | 2019-01-05 08:01 | CRLCR ---
INDICATION: Fever. COMPARISON: Chest x-ray dated 23 September 2018. FINDINGS: A single portable chest x-ray shows a normal cardiac silhouette. Atherosclerotic aorta. The lungs show mild bibasilar atelectasis. No other focal pulmonary opacities. No pneumothorax. IMPRESSION: Mild bibasilar atelectasis. No other focal pulmonary opacities. Dictated by Bruno Stovall MD @ 01/05/2019 8:00:10 AM Dictated by: Bruno Stovall MD @ 01/05/2019 08:00:19 (Electronically Signed)
[2019-01-05] MEDS ORDERED: Lactated Ringers 1,000 ML IV ONE (08:48)
[2019-01-05] MEDS ORDERED: Oseltamivir 75 MG Cap PO ONE (09:04)
[2019-01-05] MEDS ORDERED: Albuterol 0.083% 2.5 MG/3 ML Neb Soln NEB PRN (09:46)
[2019-01-05] MEDS ORDERED: Ondansetron 4 MG/2 ML SDV IV PRN (09:46)
[2019-01-05] MEDS ORDERED: Ondansetron 4 MG Tab.DIS PO PRN (09:46)
[2019-01-05] MEDS ORDERED: Acetaminophen 325 MG Tab PO PRN (09:46)
[2019-01-05] MEDS ORDERED: Magnesium Hydroxide 400 MG/5 ML Susp 30 ML Cup PO PRN (09:46)
[2019-01-05] MEDS ORDERED: Polyethylene Glycol 3350 Powder 17 GM Packet PO PRN (09:46)
[2019-01-05] MEDS ORDERED: guaiFENesin/Dextromethorphan 100-10 MG/5 ML Soln 10 ML Cup PO PRN (09:46)
[2019-01-05] MEDS ORDERED: Acetaminophen 500 MG Tab PO SCH (10:00)
--- NOTE | 2019-01-05 10:47 | PCM.HP ---
H&P History of Present Illness - General Date of Service: 01/05/19 Admit Problem/Dx: Admission Diagnosis/Problem Admission Diagnosis/Problem Influenza Source of Information: Patient, Snf Records, Provider History Limitations: Reports: No Limitations - History of Present Illness Initial Comments - Free Text/Narative: Carole presented to the emergency room this morning from a local [facility] with fever, nausea and vomiting. She has also had a mild dry cough. She had been feeling well yesterday prior to onset of symptoms after supper time. She does not report abdominal pain but has had several episodes of vomiting. She has diffuse myalgias and is weak and fatigued. Staff at the [facility] noted temperature elevations greater than 101 and center to the emergency room for evaluation. She is not aware of any obvious sick contacts. She has not traveled outside of the [facility]. Workup in the emergency room revealed a positive influenza B as well as a probable urinary tract infection. She is requiring supplemental oxygen. She will be admitted for further management. - Related Data Allergies/Adverse Reactions: Allergies Allergy/AdvReac Type Severity Reaction Status Date / Time moxifloxacin HCl Allergy Severe Seizure Verified 01/05/19 07:24 [From Avelox] indomethacin Allergy Intermediate Itching Verified 01/05/19 07:24 azathioprine Allergy Unknown Itching Verified 01/05/19 07:24 cephalexin monohydrate Allergy Unknown Itching Verified 01/05/19 07:24 [From Keflex] clindamycin HCl Allergy Unknown Itching Verified 01/05/19 07:24 [From Cleocin] codeine Allergy Unknown Itching Verified 01/05/19 07:24 doxycycline Allergy Unknown Itching Verified 01/05/19 07:24 erythromycin base Allergy Unknown Itching Verified 01/05/19 07:24 [Erythromycin Base] etodolac [Etodolac] Allergy Unknown Itching Verified 01/05/19 07:24 methotrexate Allergy Unknown Itching Verified 01/05/19 07:24 paroxetine HCl [From Paxil] Allergy Unknown Itching Verified 01/05/19 07:24 Penicillins Allergy Unknown Itching Verified 01/05/19 07:24 Sulfa (Sulfonamide Allergy Unknown Itching Verified 01/05/19 07:24 Antibiotics) ibuprofen Allergy Cannot Verified 01/05/19 07:24 Remember Iodinated Contrast- Oral and Allergy Cannot Verified 01/05/19 07:24 IV Dye Remember lisinopril Allergy Cannot Verified 01/05/19 07:24 Remember sulfasalazine Allergy Cannot Verified 01/05/19 07:24 [From Azulfidine] Remember sertraline HCl [From Zoloft] AdvReac Unknown Weakness Verified 01/05/19 07:24 prednisone AdvReac Joint Pain Verified 01/05/19 07:24 Home Medications: Home Meds Cyanocobalamin (Vitamin B-12) [Vitamin B-12] 1,000 mcg PO DAILY 06/10/17 [ History] Furosemide [Lasix] 40 mg PO DAILY 06/10/17 [History] methylPREDNISolone [Methylprednisolone] 8 mg PO DAILY 07/25/17 [History] Acetaminophen [Tylenol] 650 mg PO QID PRN 08/06/18 [History] Calcium Carbonate/Vitamin D3 [Calcium 600 + Vit D 400 Softgl] 1 each PO ASDIRECTED PRN 08/06/18 [History] Potassium Chloride 20 meq PO TID 08/06/18 [History] Rosuvastatin Calcium 5 mg PO BEDTIME 08/06/18 [History] Diclofenac Sodium [Voltaren] 1 dose TOP TID 09/22/18 [History] Menthol/Zinc Oxide [Calmoseptine] 1 applic TOP BID 09/22/18 [History] Gabapentin [Neurontin] 100 mg PO BID #60 capsule 09/25/18 [Rx] Atropine Sulfate In 0.9% NaCl [Atropine 0.01%-Ns Eye Drops] 1 drop EYELF DAILY 01/05/19 [History] Bismuth Subsalicylate [Pepto Bismol] 30 ml PO Q4HR PRN 01/05/19 [History] Citalopram Hydrobromide [Celexa] 10 mg PO DAILY 01/05/19 [History] Diclofenac Sodium [Voltaren] 1 applic TOP Q6HR PRN 01/05/19 [History] Esomeprazole [NexIUM] 40 mg PO DAILY 01/05/19 [History] Amanda Seal/Echinacea Purpurea [Echinacea & Goldenseal] 1 cap PO BID PRN [History] Menthol [Biofreeze] 1 applic TOP TID PRN 01/05/19 [History] Ondansetron HCl [Zofran] 4 mg PO Q8HR PRN 01/05/19 [History] prednisoLONE acetate [Pred Forte 1% Ophth Susp] 1 drop EYELF TID 01/05/19 [ History] Past Medical History HEENT History: Reports: Impaired Vision, Other (See Below) Other HEENT History: 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 Cardiovascular History: Reports: Heart Murmur, High Cholesterol, Hypertension Respiratory History: Reports: None Gastrointestinal History: Reports: GERD Genitourinary History: Reports: Urinary Incontinence Other Genitourinary History: urinary frequency 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: Musculoskeletal History: Reports: Arthritis, Osteoarthritis, Osteoporosis, RA Other Musculoskeletal History: polymyalgia rheumatica Neurological History: Reports: Seizure, Other (See Below) 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 Psychiatric History: Reports: Anxiety, Depression Endocrine/Metabolic History: Reports: Other (See Below) Other Endocrine/Metabolic History: Pre diabetic Hematologic History: Reports: None Immunologic History: Reports: None Oncologic (Cancer) History: Reports: None Dermatologic History: Reports: None - Infectious Disease History Infectious Disease History: Reports: Chicken Pox, Shingles - Past Surgical History HEENT Surgical History: Reports: Cataract Surgery, Tonsillectomy, Other (See Below) GI Surgical History: Reports: Colonoscopy Social & Family History - Family History Family Medical History: Noncontributory - Tobacco Use Smoking Status *Q: Never Smoker - Caffeine Use Caffeine Use: Reports: Coffee Caffeine Use Comment: decaf coffee - Alcohol Use Alcohol Use History: No - Recreational Drug Use Recreational Drug Use: No H&P Review of Systems - Review of Systems: Review Of Systems: See Below Free Text/Narrative: A complete 12 point review of systems was obtained. Pertinent positives and negatives are noted in the history of present illness. All other systems were reviewed and were negative except as noted. Exam - Exam Exam: See Below - Vital Signs Vital Signs: Last Vital Signs Temp 37.2 C 01/05/19 10:11 Pulse 87 01/05/19 10:11 Resp 16 01/05/19 10:11 BP 155/72 H 01/05/19 10:11 Pulse Ox 96 01/05/19 10:11 Weight: 72.575 kg - Exam Quality Assessment: Supplemental Oxygen General: Alert, Cooperative, Mild Distress, Lethargic HEENT: No: Mucosa Moist & [place] (dry), Scleral Icterus Neck: Supple, Trachea Midline. No: Lymphadenopathy Lungs: Clear to Auscultation, Normal Respiratory Effort. No: Wheezing Cardiovascular: Regular Rate, Regular Rhythm, Systolic Murmur GI/Abdominal Exam: Soft, Non-Tender, No Distention Extremities: Pedal Edema. No: Increased Warmth Skin: Warm, Dry. No: Rash Neuro Extensive - Mental Status: Alert, Nl Response to Commands Neuro Extensive - Motor, Sensory, Reflexes: No: Dysarthria, Abnormal Motor Psychiatric: Alert, Normal Affect - Patient Data Lab Results Last 24 hrs: Laboratory Results - last 24 hr 01/05/19 01/05/19 01/05/19 Range/Units 07:15 07:15 07:15 WBC 13.1 H (4.5-11.0) K/uL RBC 4.24 (3.30-5.50) M/uL Hgb 12.4 (12.0-15.0) g/dL Hct 39.6 (36.0-48.0) % MCV 93 (80-98) fL MCH 29 (27-31) pg MCHC 31 L (32-36) % Plt Count 152 (150-400) K/uL Neut % (Auto) 76 H (36-66) % Lymph % (Auto) 14 L (24-44) % [place] % (Auto) 9 H (2-6) % Eos % (Auto) 1 L (2-4) % Baso % (Auto) 0 (0-1) % Sodium 140 (140-148) mmol/L Potassium 3.3 L (3.6-5.2) mmol/L Chloride 101 (100-108) mmol/L Carbon Dioxide 31 (21-32) mmol/L Anion Gap 11.3 (5.0-14.0) mmol/L BUN 18 (7-18) mg/dL Creatinine 0.9 (0.6-1.0) mg/dL Est Cr Clr Drug Dosing 44.86 mL/min Estimated GFR (MDRD) > 60 (>60) Glucose 109 H (74-106) mg/dL Lactic Acid 2.0 (0.4-2.0) mmol/L Calcium 8.6 (8.5-10.1) mg/dL Total Bilirubin 0.4 (0.2-1.0) mg/dL AST 31 (15-37) U/L ALT 37 (12-78) U/L Alkaline Phosphatase 77 (46-116) U/L C-Reactive Protein 1.82 H (0.0-0.3) mg/dL Total Protein 6.4 (6.4-8.2) g/dL Albumin 2.7 L (3.4-5.0) g/dL Globulin 3.7 H (2.3-3.5) g/dL Albumin/Globulin Ratio 0.7 L (1.2-2.2) Urine Color Urine Appearance Urine pH (4.5-8.0) Ur Specific [place] (1.008-1.030) Urine Protein (NEGATIVE) mg/dL Urine Glucose (UA) (NEGATIVE) mg/dL Urine Ketones (NEGATIVE) mg/dL Urine Occult Blood (NEGATIVE) Urine Nitrite (NEGATIVE) Urine Bilirubin (NEGATIVE) Urine Urobilinogen (NORMAL) mg/dL Ur Leukocyte Esterase (NEGATIVE) Urine RBC (0-5) Urine WBC (0-5) Ur Epithelial Cells Amorphous Sediment Urine Bacteria Urine Mucus 01/05/19 Range/Units 07:17 WBC (4.5-11.0) K/uL RBC (3.30-5.50) M/uL Hgb (12.0-15.0) g/dL Hct (36.0-48.0) % MCV (80-98) fL MCH (27-31) pg MCHC (32-36) % Plt Count (150-400) K/uL Neut % (Auto) (36-66) % Lymph % (Auto) (24-44) % [place] % (Auto) (2-6) % Eos % (Auto) (2-4) % Baso % (Auto) (0-1) % Sodium (140-148) mmol/L Potassium (3.6-5.2) mmol/L Chloride (100-108) mmol/L Carbon Dioxide (21-32) mmol/L Anion Gap (5.0-14.0) mmol/L BUN (7-18) mg/dL Creatinine (0.6-1.0) mg/dL Est Cr Clr Drug Dosing mL/min Estimated GFR (MDRD) (>60) Glucose (74-106) mg/dL Lactic Acid (0.4-2.0) mmol/L Calcium (8.5-10.1) mg/dL Total Bilirubin (0.2-1.0) mg/dL AST (15-37) U/L ALT (12-78) U/L Alkaline Phosphatase (46-116) U/L C-Reactive Protein (0.0-0.3) mg/dL Total Protein (6.4-8.2) g/dL Albumin (3.4-5.0) g/dL Globulin (2.3-3.5) g/dL Albumin/Globulin Ratio (1.2-2.2) Urine Color Yellow Urine Appearance Slightly cloudy Urine pH 7.0 (4.5-8.0) Ur Specific [place] 1.010 (1.008-1.030) Urine Protein Trace (NEGATIVE) mg/dL Urine Glucose (UA) Normal (NEGATIVE) mg/dL Urine Ketones Negative (NEGATIVE) mg/dL Urine Occult Blood Trace (NEGATIVE) Urine Nitrite Negative (NEGATIVE) Urine Bilirubin Negative (NEGATIVE) Urine Urobilinogen Normal (NORMAL) mg/dL Ur Leukocyte Esterase Moderate (NEGATIVE) Urine RBC 5-10 H (0-5) Urine WBC 10-20 H (0-5) Ur Epithelial Cells Rare Amorphous Sediment Not seen Urine Bacteria Many Urine Mucus Not seen Result Diagrams: 01/05/19 07:15 01/05/19 07:15 Gavino Results Last 24 hrs: Microbiology 01/05/19 08:35 Influenza Type A Antigen Screen - Final Nasal Aspirate, Unspecified NEGATIVE INFLUENZA A VIRUS AG Influenza Type B Antigen Screen - Final Positive Influenza B Ag Imaging Impressions Last 24 hrs: chest x-ray - images personally reviewed - lungs are clear with no obvious mass , infiltrate or effusion. Heart size is normal. *Q Meaningful Use (ADM) - VTE Risk Assess *Q Each Risk Factor Represents 1 Point: Swollen Legs, Current, Obesity ( BMI > 25 kg/m2), Serious lung disease including pneumonia Total Score 1 Point Risk Factors: 3 Each Risk Factor Represents 2 Points: None Total Score 2 Point Risk Factors: 0 Each Risk Factor Represents 3 Points: Age 75 Years or Greater Total Score 3 Point Risk Factors: 3 Each Risk Factor Represents 5 Points: None Total Score 5 Point Risk Factors: 0 Venous Thromboembolism Risk Factor Score *Q: 6 - Problem List (1) Influenza B SNOMED Code(s): 29816259 ICD Code: J10.1 - FLU DUE TO OTH IDENT INFLUENZA VIRUS W OTH RESP MANIFEST Status: Acute Current Visit: Yes (2) Acute respiratory failure with hypoxia SNOMED Code(s): 95971473, 800671633 ICD Code: J96.01 - ACUTE RESPIRATORY FAILURE WITH HYPOXIA Status: Acute Current Visit: Yes (3) Urinary tract infection SNOMED Code(s): 49355683 ICD Code: N39.0 - URINARY TRACT INFECTION, SITE NOT SPECIFIED Status: Acute Current Visit: Yes Qualifiers: Urinary tract infection type: acute cystitis Hematuria presence: with hematuria Qualified Code(s): N30.01 - Acute cystitis with hematuria (4) Arthritis, rheumatoid SNOMED Code(s): 79753624 ICD Code: M06.9 - RHEUMATOID ARTHRITIS, UNSPECIFIED Status: Chronic Current Visit: No Qualifiers: Rheumatoid arthritis location: multiple sites Rheumatoid factor presence: unspecified presence Qualified Code(s): M06.9 - Rheumatoid arthritis, unspecified Problem List Initiated/Reviewed/Updated: Yes Orders Last 24hrs: Active Orders 24 hr Category Date Time Status Patient Status [ADT] Routine ADT 01/05/19 09:46 Active Antiembolic Devices [RC] .Routine Care 01/05/19 09:46 Active Intake and Output [RC] QSHIFT Care 01/05/19 09:46 Active Notify Provider Vital Signs [RC] ASDIRECTED Care 01/05/19 09:46 Active Oxygen Therapy [RC] PRN Care 01/05/19 09:46 Active RT Aerosol Therapy [RC] ASDIRECTED Care 01/05/19 09:46 Active Up With Assistance [RC] ASDIRECTED Care 01/05/19 09:46 Active VTE/DVT Education [RC] Per Unit Routine Care 01/05/19 09:46 Active Vital Signs [RC] Q4H Care 01/05/19 09:46 Active Regular Diet [DIET] Diet 01/05/19 Lunch Active BASIC METABOLIC PANEL,BMP [CHEM] AM Lab 01/06/19 05:11 Ordered CBC W/O DIFF,HEMOGRAM [HEME] AM Lab 01/06/19 05:11 Ordered CULTURE BLOOD [BC] Urgent Lab 01/05/19 07:15 Received CULTURE BLOOD [BC] Urgent Lab 01/05/19 07:24 Received CULTURE URINE [RM] Stat Lab 01/05/19 07:17 Received Acetaminophen [Tylenol Extra Strength] Med 01/05/19 14:00 Active 1,000 mg PO TID Acetaminophen [Tylenol] Med 01/05/19 09:46 Active 650 mg PO QID PRN Albuterol [Proventil Neb Soln] Med 01/05/19 09:46 Active 2.5 mg NEB Q4H PRN Atropine Sulfate [Atropine 1%] Med 01/05/19 10:15 Active 0 ml OP DAILY Citalopram [Celexa] Med 01/06/19 09:00 Active 10 mg PO DAILY Cyanocobalamin (Vitamin B12) [Vitamin B12] Med 01/05/19 10:00 Active 1,000 mcg PO DAILY Dextromethorphan/guaiFENesin [Robitussin DM] Med 01/05/19 09:46 Active 10 ml PO Q4H PRN Diclofenac Sodium [Voltaren 1% Gel] Med 01/05/19 14:00 Active 0 gm TOP TID Furosemide [Lasix] Med 01/07/19 09:00 Active 40 mg PO DAILY Gabapentin [Neurontin] Med 01/05/19 10:00 Active 100 mg PO BID Lactated Ringers [Ringers, Lactated] 1,000 ml Med 01/05/19 09:46 Active IV ASDIRECTED Lactated Ringers [Ringers, Lactated] 1,000 ml Med 01/05/19 08:48 Active IV BOLUS Magnesium Hydroxide [Milk of Magnesia] Med 01/05/19 09:46 Active 30 ml PO Q12H PRN Ondansetron [Zofran ODT] Med 01/05/19 09:46 Active 4 mg PO Q6H PRN Ondansetron [Zofran] Med 01/05/19 09:46 Active 4 mg IV Q6H PRN Oseltamivir [Tamiflu] Med 01/05/19 21:00 Active 30 mg PO BID Pantoprazole [ProTONIX] Med 01/06/19 07:30 Active 40 mg PO ACBREAKFAST Polyethylene Glycol 3350 [MiraLAX] Med 01/05/19 09:46 Active 17 gm PO DAILY PRN Potassium Chloride [Klor-Con M20] Med 01/05/19 12:00 Active 20 meq PO TIDMEALS Rosuvastatin [Crestor] Med 01/05/19 21:00 Active 5 mg PO BEDTIME cefTRIAXone [Rocephin] 1 gm Med 01/05/19 14:00 Active Sodium Chloride 0.9% [Normal Saline] 50 ml IV Q24H methylPREDNISolone [Medrol] Med 01/05/19 09:46 Active 8 mg PO DAILY@0800 prednisoLONE acetate [Pred Forte 1% Ophth Susp] Med 01/05/19 14:00 Active 0 ml EYELF TID Blood Culture x2 Reflex Set [OM.PC] Urgent Oth 01/05/19 07:17 Ordered Blood Culture x2 Reflex Set [OM.PC] Urgent Oth 01/05/19 07:21 Ordered Sequential Compression Device [OM.PC] Per Unit Routine Oth 01/05/19 09:46 Ordered Resuscitation Status Routine Resus Stat 01/05/19 09:32 Ordered Medication Orders Acetaminophen (Tylenol) 650 mg PO QID PRN PRN Reason: Pain (mild 1-3) Acetaminophen (Tylenol Extra Strength) 1,000 mg PO TID [facility] Albuterol (Proventil Neb Soln) 2.5 mg NEB Q4H PRN PRN Reason: Shortness Of Breath/wheezing Atropine Sulfate (Atropine 1%) 0 ml OP DAILY [facility] Citalopram Hydrobromide (Celexa) 10 mg PO DAILY [facility] Cyanocobalamin (Vitamin B12) 1,000 mcg PO DAILY [facility] Diclofenac Sodium (Voltaren 1% Gel) 0 gm TOP TID [facility] Furosemide (Lasix) 40 mg PO DAILY [facility] Gabapentin (Neurontin) 100 mg PO BID [facility] Guaifenesin/Dextromethorphan (Robitussin Dm) 10 ml PO Q4H PRN PRN Reason: Cough Lactated Ringer's (Ringers, Lactated) 1,000 mls @ 500 mls/hr IV BOLUS ONE Stop: 01/05/19 10:47 Last Admin: 01/05/19 08:50 Dose: 500 mls/hr Ceftriaxone Sodium 1 gm/ (Sodium Chloride) 50 mls @ 100 mls/hr IV Q24H [facility] Lactated Ringer's (Ringers, Lactated) 1,000 mls @ 125 mls/hr IV ASDIRECTED [facility] Magnesium Hydroxide (Milk Of Magnesia) 30 ml PO Q12H PRN PRN Reason: Constipation Methylprednisolone (Medrol) 8 mg PO DAILY@0800 [facility] Ondansetron HCl (Zofran Odt) 4 mg PO Q6H PRN PRN Reason: Nausea able to take PO Ondansetron HCl (Zofran) 4 mg IV Q6H PRN PRN Reason: Nausea/Vomiting Oseltamivir Phosphate (Tamiflu) 30 mg PO BID [facility] Pantoprazole Sodium (Protonix) 40 mg PO ACBREAKFAST [facility] Polyethylene Glycol (Miralax) 17 gm PO DAILY PRN PRN Reason: Constipation Potassium Chloride (Klor-Con M20) 20 meq PO TIDMEALS [facility] Prednisolone Acetate (Pred Forte 1% Ophth Susp) 0 ml EYELF TID [facility] Rosuvastatin Calcium (Crestor) 5 mg PO BEDTIME [facility] Assessment/Plan Comment:: ASSESSMENT AND PLAN - Acute influenza B - symptoms include fever, weakness and myalgias as well as a cough and nausea. She is febrile and hypoxic. She is not safe for outpatient management at this time. -Tamiflu for 10 doses (01/05-01/09) -Supplement oxygen -Nebs as needed -Symptomatically management of myalgias and cough Probable urinary tract infection - urinalysis moderately suggestive of infection and cultures set up and antibiotics have been started empirically. She does not report symptoms such as dysuria. -Empiric ceftriaxone (reported reaction of itching noted to cephalosporins) -follow-up urine culture Hypokalemia - mild and will be supplemented throughout the day. Rheumatoid arthritis - she is on chronic steroid therapy. -Continue home medications Maintenance issues - - DVT prophylaxis - mechanical - GI prophylaxis - PPI - Nutrition - regular - Hagan catheter - not indicated CODE STATUS - full code Admission justification - This patient will be admitted for inpatient services and is medically appropriate meeting medical necessity for inpatient admission as outlined in my documentation. I reasonably expect the patient will require inpatient services that span a period time over 2 midnights. I reasonably expect this patient to be discharged or transferred within 96 hours [facility]. Disposition - [facility] after the hospital stay Primary care physician - Dr. Isaura Linarse M.D.
[2019-01-05] MEDS: Atropine Sulfate Ophth 2 ML Drops OP SCH (10:55)
[2019-01-05] MEDS: Cyanocobalamin (Vitamin B12) 1,000 MCG Tab PO SCH (10:55)
[2019-01-05] MEDS: Gabapentin 100 MG Cap PO SCH ×2 (10:55→21:18)
[2019-01-05] MEDS: Potassium Chloride 20 MEQ Tab.ER PO SCH ×2 (11:45→17:18)
[2019-01-05] MEDS ORDERED: cefTRIAXone 1 GM in Sodium Chloride 0.9% 50 ML IV SCH (14:00)
[2019-01-05] MEDS: Acetaminophen 500 MG Tab PO SCH ×2 (14:05→21:19)
[2019-01-05] MEDS: Diclofenac Sodium 1% Gel 100 GM Tube TOP SCH ×2 (14:05→21:20)
[2019-01-05] MEDS: prednisoLONE Acetate 1% Ophth Susp 5 ML Bottle EYELF SCH ×2 (14:05→21:19)
[2019-01-05] MEDS: Lactated Ringers 1,000 ML IV SCH (14:06)
[2019-01-05] MEDS ORDERED: Oseltamivir 75 MG Cap PO SCH (21:00)
[2019-01-05] MEDS: Oseltamivir 30 MG Cap PO SCH (21:18)
[2019-01-05] MEDS: Rosuvastatin 10 MG Tab PO SCH (21:19)
[2019-01-06] MEDS: Lactated Ringers 1,000 ML IV SCH (03:27)
[2019-01-06] MEDS: Potassium Chloride 20 MEQ Tab.ER PO SCH ×3 (07:52→16:33)
[2019-01-06] MEDS: Pantoprazole 40 MG Tab.CR PO SCH (07:53)
[2019-01-06] MEDS: Atropine Sulfate Ophth 2 ML Drops OP SCH (08:03)
[2019-01-06] MEDS: prednisoLONE Acetate 1% Ophth Susp 5 ML Bottle EYELF SCH ×3 (08:03→21:03)
[2019-01-06] MEDS: Cyanocobalamin (Vitamin B12) 1,000 MCG Tab PO SCH (09:43)
[2019-01-06] MEDS: Citalopram 10 MG Tab PO SCH (09:43)
[2019-01-06] MEDS: Acetaminophen 500 MG Tab PO SCH ×3 (09:43→21:02)
[2019-01-06] MEDS: Oseltamivir 30 MG Cap PO SCH ×2 (09:43→21:02)
[2019-01-06] MEDS: Gabapentin 100 MG Cap PO SCH ×2 (09:43→21:02)
[2019-01-06] MEDS: Diclofenac Sodium 1% Gel 100 GM Tube TOP SCH ×3 (09:44→21:02)
--- NOTE | 2019-01-06 10:58 | PCM.PN ---
- General Info Date of Service: 01/06/19 Subjective Update: There were no acute events overnight. She did have one fever last night after admission. She feels better today with improved energy and appetite. She is still requiring supplemental oxygen. No complaints of abdominal pain and she does not feel short of breath. No nausea or vomiting. Urine culture and 2 out of the 4 blood culture bottles are growing gram-negative rods. Functional Status: Reports: Pain Controlled, Tolerating Diet - Review of Systems General: Reports: Weakness - Patient Data Vitals - Most Recent: Last Vital Signs Temp 36.2 C 01/06/19 10:17 Pulse 83 01/06/19 10:17 Resp 16 01/06/19 10:17 BP 202/80 H 01/06/19 10:17 Pulse Ox 92 L 01/06/19 10:20 Weight - Most Recent: 72.575 kg I&O - Last 24 Hours: Intake & Output 01/05/19 01/06/19 01/06/19 22:59 06:59 14:59 Intake Total 1404 1661 Output Total 300 Balance 1104 1661 Lab Results Last 24 Hours: Laboratory Results - last 24 hr 01/06/19 01/06/19 Range/Units 04:45 04:45 WBC 8.6 (4.5-11.0) K/uL RBC 3.60 (3.30-5.50) M/uL Hgb 10.4 L D (12.0-15.0) g/dL Hct 34.2 L (36.0-48.0) % MCV 95 (80-98) fL MCH 29 (27-31) pg MCHC 30 L (32-36) % Plt Count 130 L (150-400) K/uL Sodium 142 (140-148) mmol/L Potassium 4.3 (3.6-5.2) mmol/L Chloride 106 (100-108) mmol/L Carbon Dioxide 32 (21-32) mmol/L Anion Gap 3.9 L (5.0-14.0) mmol/L BUN 16 (7-18) mg/dL Creatinine 0.9 (0.6-1.0) mg/dL Est Cr Clr Drug Dosing 44.79 mL/min Estimated GFR (MDRD) > 60 (>60) Glucose 94 (74-106) mg/dL Calcium 8.4 L (8.5-10.1) mg/dL Gavino Results Last 24 Hours: Microbiology 01/05/19 07:15 Aerobic Blood Culture - Preliminary Blood - Venous - Iv Start NO GROWTH AFTER 1 DAY Anaerobic Blood Culture - Preliminary NO GROWTH AFTER 1 DAY 01/05/19 07:24 Aerobic Blood Culture - Preliminary Blood - Venous - Iv Start Anaerobic Blood Culture - Preliminary 01/05/19 07:17 Urine Culture - Preliminary Urine, Clean Catch 01/05/19 08:35 Influenza Type A Antigen Screen - Final Nasal Aspirate, Unspecified NEGATIVE INFLUENZA A VIRUS AG Influenza Type B Antigen Screen - Final Positive Influenza B Ag Med Orders - Current: Current Medications Acetaminophen (Tylenol) 650 mg PO QID PRN PRN Reason: Pain (mild 1-3) Acetaminophen (Tylenol Extra Strength) 1,000 mg PO TID [facility] Last Admin: 01/06/19 09:43 Dose: 1,000 mg Albuterol (Proventil Neb Soln) 2.5 mg NEB Q4H PRN PRN Reason: Shortness Of Breath/wheezing Atropine Sulfate (Atropine 1%) 0 ml OP DAILY [facility] Last Admin: 01/06/19 08:03 Dose: 1 drop Citalopram Hydrobromide (Celexa) 10 mg PO DAILY [facility] Last Admin: 01/06/19 09:43 Dose: 10 mg Cyanocobalamin (Vitamin B12) 1,000 mcg PO DAILY [facility] Last Admin: 01/06/19 09:43 Dose: 1,000 mcg Diclofenac Sodium (Voltaren 1% Gel) 0 gm TOP TID [facility] Last Admin: 01/06/19 09:44 Dose: 1 applic Furosemide (Lasix) 40 mg PO DAILY [facility] Gabapentin (Neurontin) 100 mg PO BID [facility] Last Admin: 01/06/19 09:43 Dose: 100 mg Guaifenesin/Dextromethorphan (Robitussin Dm) 10 ml PO Q4H PRN PRN Reason: Cough Ceftriaxone Sodium 1 gm/ (Sodium Chloride) 50 mls @ 100 mls/hr IV Q24H [facility] Last Admin: 01/05/19 14:05 Dose: 100 mls/hr Lactated Ringer's (Ringers, Lactated) 1,000 mls @ 125 mls/hr IV ASDIRECTED [facility] Last Admin: 01/06/19 03:27 Dose: 125 mls/hr Meropenem 1 gm/ Sodium (Chloride) 50 mls @ 100 mls/hr IV Q8H [facility] Magnesium Hydroxide (Milk Of Magnesia) 30 ml PO Q12H PRN PRN Reason: Constipation Methylprednisolone (Medrol) 8 mg PO DAILY@0800 [facility] Last Admin: 01/06/19 07:53 Dose: 8 mg Ondansetron HCl (Zofran Odt) 4 mg PO Q6H PRN PRN Reason: Nausea able to take PO Ondansetron HCl (Zofran) 4 mg IV Q6H PRN PRN Reason: Nausea/Vomiting Oseltamivir Phosphate (Tamiflu) 30 mg PO BID [facility] Last Admin: 01/06/19 09:43 Dose: 30 mg Pantoprazole Sodium (Protonix) 40 mg PO ACBREAKFAST [facility] Last Admin: 01/06/19 07:53 Dose: 40 mg Polyethylene Glycol (Miralax) 17 gm PO DAILY PRN PRN Reason: Constipation Potassium Chloride (Klor-Con M20) 20 meq PO TIDMEALS [facility] Last Admin: 01/06/19 07:52 Dose: 20 meq Prednisolone Acetate (Pred Forte 1% Ophth Susp) 0 ml EYELF TID [facility] Last Admin: 01/06/19 08:03 Dose: 1 drop Rosuvastatin Calcium (Crestor) 5 mg PO BEDTIME [facility] Last Admin: 01/05/19 21:19 Dose: 5 mg Discontinued Medications Acetaminophen (Tylenol) 650 mg PO NOW ONE Stop: 01/05/19 07:49 Last Admin: 01/05/19 07:55 Dose: 650 mg Diphenhydramine HCl (Benadryl) 25 mg IVPUSH ONETIME ONE Stop: 01/05/19 07:23 Last Admin: 01/05/19 07:28 Dose: 25 mg Lactated Ringer's (Ringers, Lactated) 1,000 mls @ 999 mls/hr IV ASDIRECTED [facility] Last Admin: 01/05/19 07:28 Dose: 999 mls/hr Meropenem 1 gm/ Sodium (Chloride) 100 mls @ 200 mls/hr IV Q8H [facility] Last Admin: 01/05/19 07:49 Dose: 200 mls/hr Lactated Ringer's (Ringers, Lactated) 1,000 mls @ 500 mls/hr IV BOLUS ONE Stop: 01/05/19 10:47 Last Admin: 01/05/19 08:50 Dose: 500 mls/hr Meropenem 1 gm/ Sodium (Chloride) 50 mls @ 100 mls/hr IV Q8H [facility] Last Admin: 01/06/19 06:09 Dose: 100 mls/hr Oseltamivir Phosphate (Tamiflu) 75 mg PO ONETIME ONE Stop: 01/05/19 09:05 Last Admin: 01/05/19 09:11 Dose: 75 mg - Exam Quality Assessment: Supplemental Oxygen General: Alert, Oriented, Cooperative, No Acute Distress Lungs: Clear to Auscultation, Normal Respiratory Effort Cardiovascular: Regular Rate, Regular Rhythm GI/Abdominal Exam: Normal Bowel Sounds, Soft Extremities: No Pedal Edema Psy/Mental Status: Alert, Normal Affect - Problem List & Annotations (1) Influenza B SNOMED Code(s): 47542683 Code(s): J10.1 - FLU DUE TO OTH IDENT INFLUENZA VIRUS W OTH RESP MANIFEST Status: Acute Current Visit: Yes (2) Acute respiratory failure with hypoxia SNOMED Code(s): 23955523, 278702567 Code(s): J96.01 - ACUTE RESPIRATORY FAILURE WITH HYPOXIA Status: Acute Current Visit: Yes (3) Urinary tract infection SNOMED Code(s): 67302159 Code(s): N39.0 - URINARY TRACT INFECTION, SITE NOT SPECIFIED Status: Acute Current Visit: Yes Qualifiers: Urinary tract infection type: acute cystitis Hematuria presence: with hematuria Qualified Code(s): N30.01 - Acute cystitis with hematuria (4) Arthritis, rheumatoid SNOMED Code(s): 40404883 Code(s): M06.9 - RHEUMATOID ARTHRITIS, UNSPECIFIED Status: Chronic Current Visit: No Qualifiers: Rheumatoid arthritis location: multiple sites Rheumatoid factor presence: unspecified presence Qualified Code(s): M06.9 - Rheumatoid arthritis, unspecified - Problem List Review Problem List Initiated/Reviewed/Updated: Yes - My Orders Last 24 Hours: My Active Orders 01/05/19 10:00 Cyanocobalamin (Vitamin B12) [Vitamin B12] 1,000 mcg PO DAILY Gabapentin [Neurontin] 100 mg PO BID 01/05/19 10:15 Atropine Sulfate [Atropine 1%] 0 ml OP DAILY 01/05/19 12:00 Potassium Chloride [Klor-Con M20] 20 meq PO TIDMEALS 01/05/19 14:00 Acetaminophen [Tylenol Extra Strength] 1,000 mg PO TID Diclofenac Sodium [Voltaren 1% Gel] 0 gm TOP TID cefTRIAXone [Rocephin] 1 gm Sodium Chloride 0.9% [Normal Saline] 50 ml IV Q24H prednisoLONE acetate [Pred Forte 1% Ophth Susp] 0 ml EYELF TID 01/05/19 21:00 Oseltamivir [Tamiflu] 30 mg PO BID Rosuvastatin [Crestor] 5 mg PO BEDTIME 01/05/19 Lunch Regular Diet [DIET] 01/06/19 07:30 Pantoprazole [ProTONIX] 40 mg PO ACBREAKFAST 01/06/19 09:00 Citalopram [Celexa] 10 mg PO DAILY 01/06/19 10:56 Convert IV to Saline Lock [OM.PC] Routine 01/07/19 05:00 BASIC METABOLIC PANEL,BMP [CHEM] Timed CBC W/O DIFF,HEMOGRAM [HEME] Timed (1) 01/07/19 09:00 Furosemide [Lasix] 40 mg PO DAILY - Plan Plan:: ASSESSMENT AND PLAN - Acute influenza B - clinically much better this morning but still requiring supplemental oxygen. Respiratory exam is benign. -Tamiflu for 10 doses (01/05-01/09) -Supplement oxygen -Nebs as needed -Symptomatically management of myalgias and cough Acute cystitis with gram-negative bacteremia - urine culture growing a gram- negative nora and 2 out of 4 blood culture bottles with gram-negative rods. No evidence for sepsis at this time. She has had recent antibiotics. -Empiric meropenem -follow-up urine culture and blood cultures Hypokalemia - improved with supplementation. Rheumatoid arthritis - she is on chronic steroid therapy. -Continue home medications Maintenance issues - - DVT prophylaxis - mechanical - GI prophylaxis - PPI - Nutrition - regular Disposition - [facility] Primary care physician - Dr. Isaura Linares M.D.
[2019-01-06] MEDS: amLODIPine 5 MG Tab PO SCH (16:33)
[2019-01-06] MEDS: Rosuvastatin 10 MG Tab PO SCH (21:02)
[2019-01-07] MEDS: Potassium Chloride 20 MEQ Tab.ER PO SCH ×3 (07:43→17:06)
[2019-01-07] MEDS: Pantoprazole 40 MG Tab.CR PO SCH (07:44)
[2019-01-07] MEDS: Atropine Sulfate Ophth 2 ML Drops OP SCH (09:11)
[2019-01-07] MEDS: Acetaminophen 500 MG Tab PO SCH ×3 (09:13→20:46)
[2019-01-07] MEDS: Citalopram 10 MG Tab PO SCH (09:13)
[2019-01-07] MEDS: amLODIPine 5 MG Tab PO SCH (09:13)
[2019-01-07] MEDS: Gabapentin 100 MG Cap PO SCH ×2 (09:13→20:45)
[2019-01-07] MEDS: Cyanocobalamin (Vitamin B12) 1,000 MCG Tab PO SCH (09:13)
[2019-01-07] MEDS: Oseltamivir 30 MG Cap PO SCH (09:13)
[2019-01-07] MEDS: Furosemide 40 MG Tab PO SCH (09:14)
[2019-01-07] MEDS: prednisoLONE Acetate 1% Ophth Susp 5 ML Bottle EYELF SCH ×3 (09:14→20:46)
[2019-01-07] MEDS: Diclofenac Sodium 1% Gel 100 GM Tube TOP SCH ×3 (09:15→20:46)
--- NOTE | 2019-01-07 11:01 | PCM.PN ---
- General Info Date of Service: 01/07/19 Subjective Update: There were no acute events overnight. Blood pressure was elevated around 200 systolic yesterday. We did start 5 mg of amlodipine in the afternoon. Blood pressures remained elevated throughout the night but have improved into this morning. She is a little weak but otherwise feeling better. She is not on supplemental oxygen this morning. Not much in the way of cough. She has been up and walking around in the halls. No fevers overnight. Functional Status: Reports: Pain Controlled, Tolerating Diet, Ambulating - Review of Systems General: Reports: Weakness - Patient Data Vitals - Most Recent: Last Vital Signs Temp 36.0 C 01/07/19 10:20 Pulse 90 01/07/19 10:20 Resp 16 01/07/19 10:20 BP 145/68 H 01/07/19 10:37 Pulse Ox 93 L 01/07/19 10:20 Weight - Most Recent: 72.575 kg I&O - Last 24 Hours: Intake & Output 01/06/19 01/07/19 01/07/19 22:59 06:59 14:59 Intake Total 835 480 Output Total 200 Balance 635 480 Lab Results Last 24 Hours: Laboratory Results - last 24 hr 01/07/19 01/07/19 Range/Units 04:38 04:38 WBC 10.9 (4.5-11.0) K/uL RBC 4.15 (3.30-5.50) M/uL Hgb 11.6 L (12.0-15.0) g/dL Hct 38.9 (36.0-48.0) % MCV 94 (80-98) fL MCH 28 (27-31) pg MCHC 30 L (32-36) % Plt Count 169 (150-400) K/uL Sodium 140 (140-148) mmol/L Potassium 3.9 (3.6-5.2) mmol/L Chloride 103 (100-108) mmol/L Carbon Dioxide 30 (21-32) mmol/L Anion Gap 7.1 (5.0-14.0) mmol/L BUN 17 (7-18) mg/dL Creatinine 0.9 (0.6-1.0) mg/dL Est Cr Clr Drug Dosing 44.79 mL/min Estimated GFR (MDRD) > 60 (>60) Glucose 101 (74-106) mg/dL Calcium 9.2 (8.5-10.1) mg/dL [facility] Results Last 24 Hours: Microbiology 01/05/19 07:15 Aerobic Blood Culture - Preliminary Blood - Venous - Iv Start NO GROWTH AFTER 2 DAYS Anaerobic Blood Culture - Preliminary NO GROWTH AFTER 2 DAYS 01/05/19 07:24 Aerobic Blood Culture - Final Blood - Venous - Iv Start Escherichia Coli Anaerobic Blood Culture - Final Escherichia Coli 01/05/19 07:17 Urine Culture - Final Urine, Clean Catch Escherichia Coli Med Orders - Current: Current Medications Acetaminophen (Tylenol) 650 mg PO QID PRN PRN Reason: Pain (mild 1-3) Acetaminophen (Tylenol Extra Strength) 1,000 mg PO TID [facility] Last Admin: 01/07/19 09:13 Dose: 1,000 mg Albuterol (Proventil Neb Soln) 2.5 mg NEB Q4H PRN PRN Reason: Shortness Of Breath/wheezing Amlodipine Besylate (Norvasc) 5 mg PO DAILY [facility] Last Admin: 01/07/19 09:13 Dose: 5 mg Atropine Sulfate (Atropine 1%) 0 ml OP DAILY [facility] Last Admin: 01/07/19 09:11 Dose: 1 drop Cephalexin (Keflex) 500 mg PO BID [facility] Citalopram Hydrobromide (Celexa) 10 mg PO DAILY [facility] Last Admin: 01/07/19 09:13 Dose: 10 mg Cyanocobalamin (Vitamin B12) 1,000 mcg PO DAILY [facility] Last Admin: 01/07/19 09:13 Dose: 1,000 mcg Diclofenac Sodium (Voltaren 1% Gel) 0 gm TOP TID [facility] Last Admin: 01/07/19 09:15 Dose: Not Given Furosemide (Lasix) 40 mg PO DAILY [facility] Last Admin: 01/07/19 09:14 Dose: 40 mg Gabapentin (Neurontin) 100 mg PO BID [facility] Last Admin: 01/07/19 09:13 Dose: 100 mg Guaifenesin/Dextromethorphan (Robitussin Dm) 10 ml PO Q4H PRN PRN Reason: Cough Magnesium Hydroxide (Milk Of Magnesia) 30 ml PO Q12H PRN PRN Reason: Constipation Methylprednisolone (Medrol) 8 mg PO DAILY@0800 [facility] Last Admin: 01/07/19 07:44 Dose: 8 mg Ondansetron HCl (Zofran Odt) 4 mg PO Q6H PRN PRN Reason: Nausea able to take PO Ondansetron HCl (Zofran) 4 mg IV Q6H PRN PRN Reason: Nausea/Vomiting Oseltamivir Phosphate (Tamiflu) 30 mg PO BID [facility] Last Admin: 01/07/19 09:13 Dose: 30 mg Pantoprazole Sodium (Protonix) 40 mg PO ACBREAKFAST [facility] Last Admin: 01/07/19 07:44 Dose: 40 mg Polyethylene Glycol (Miralax) 17 gm PO DAILY PRN PRN Reason: Constipation Potassium Chloride (Klor-Con M20) 20 meq PO TIDMEALS [facility] Last Admin: 01/07/19 07:43 Dose: 20 meq Prednisolone Acetate (Pred Forte 1% Ophth Susp) 0 ml EYELF TID [facility] Last Admin: 01/07/19 09:14 Dose: 1 drop Rosuvastatin Calcium (Crestor) 5 mg PO BEDTIME [facility] Last Admin: 01/06/19 21:02 Dose: 5 mg Discontinued Medications Acetaminophen (Tylenol) 650 mg PO NOW ONE Stop: 01/05/19 07:49 Last Admin: 01/05/19 07:55 Dose: 650 mg Diphenhydramine HCl (Benadryl) 25 mg IVPUSH ONETIME ONE Stop: 01/05/19 07:23 Last Admin: 01/05/19 07:28 Dose: 25 mg Lactated Ringer's (Ringers, Lactated) 1,000 mls @ 999 mls/hr IV ASDIRECTED [facility] Last Admin: 01/05/19 07:28 Dose: 999 mls/hr Meropenem 1 gm/ Sodium (Chloride) 100 mls @ 200 mls/hr IV Q8H [facility] Last Admin: 01/05/19 07:49 Dose: 200 mls/hr Lactated Ringer's (Ringers, Lactated) 1,000 mls @ 500 mls/hr IV BOLUS ONE Stop: 01/05/19 10:47 Last Admin: 01/05/19 08:50 Dose: 500 mls/hr Ceftriaxone Sodium 1 gm/ (Sodium Chloride) 50 mls @ 100 mls/hr IV Q24H [facility] Last Admin: 01/05/19 14:05 Dose: 100 mls/hr Lactated Ringer's (Ringers, Lactated) 1,000 mls @ 125 mls/hr IV ASDIRECTED [facility] Last Admin: 01/06/19 03:27 Dose: 125 mls/hr Meropenem 1 gm/ Sodium (Chloride) 50 mls @ 100 mls/hr IV Q8H [facility] Last Admin: 01/06/19 06:09 Dose: 100 mls/hr Meropenem 1 gm/ Sodium (Chloride) 50 mls @ 100 mls/hr IV Q8H [facility] Last Admin: 01/07/19 05:23 Dose: 100 mls/hr Oseltamivir Phosphate (Tamiflu) 75 mg PO ONETIME ONE Stop: 01/05/19 09:05 Last Admin: 01/05/19 09:11 Dose: 75 mg - Exam Quality Assessment: No: Supplemental Oxygen General: Alert, Oriented, Cooperative, No Acute Distress Lungs: Clear to Auscultation, Normal Respiratory Effort Cardiovascular: Regular Rate, Regular Rhythm GI/Abdominal Exam: Soft, No Distention Extremities: No Pedal Edema. No: Increased Warmth Psy/Mental Status: Alert, Normal Affect - Problem List & Annotations (1) Influenza B SNOMED Code(s): 27038650 Code(s): J10.1 - FLU DUE TO OTH IDENT INFLUENZA VIRUS W OTH RESP MANIFEST Status: Acute Current Visit: Yes (2) Acute respiratory failure with hypoxia SNOMED Code(s): 17143158, 075131346 Code(s): J96.01 - ACUTE RESPIRATORY FAILURE WITH HYPOXIA Status: Acute Current Visit: Yes (3) Urinary tract infection SNOMED Code(s): 95949723 Code(s): N39.0 - URINARY TRACT INFECTION, SITE NOT SPECIFIED Status: Acute Current Visit: Yes Qualifiers: Urinary tract infection type: acute cystitis Hematuria presence: with hematuria Qualified Code(s): N30.01 - Acute cystitis with hematuria (4) Arthritis, rheumatoid SNOMED Code(s): 88155199 Code(s): M06.9 - RHEUMATOID ARTHRITIS, UNSPECIFIED Status: Chronic Current Visit: No Qualifiers: Rheumatoid arthritis location: multiple sites Rheumatoid factor presence: unspecified presence Qualified Code(s): M06.9 - Rheumatoid arthritis, unspecified - Problem List Review Problem List Initiated/Reviewed/Updated: Yes - My Orders Last 24 Hours: My Active Orders 01/06/19 10:56 Convert IV to Saline Lock [OM.PC] Routine 01/06/19 16:15 amLODIPine [Norvasc] 5 mg PO DAILY 01/07/19 09:00 Furosemide [Lasix] 40 mg PO DAILY 01/07/19 11:00 cephALEXin [Keflex] 500 mg PO BID - Plan Plan:: ASSESSMENT AND PLAN - Acute influenza B - clinically much better this morning and now off supplemental oxygen. -Tamiflu for 10 doses (01/05-01/09) -Supplement oxygen -Nebs as needed -Symptomatically management of myalgias and cough Acute cystitis with gram-negative bacteremia - urine culture and blood cultures grew out and sensitive Escherichia coli. -Transition antibiotics to cephalexin for total of 7 days with bacteremia Accelerated hypertension - blood pressure has been moderately elevated throughout the first part of the hospital stay and had been at the halfway as well. More elevated yesterday and amlodipine was initiated. Blood pressures have improved since that time. -Continue amlodipine Hypokalemia - improved with supplementation. Rheumatoid arthritis - she is on chronic steroid therapy. -Continue home medications Maintenance issues - - DVT prophylaxis - mechanical - GI prophylaxis - PPI - Nutrition - regular Disposition - anticipate discharge back to the halfway after the hospital stay, likely tomorrow if stable overnight Primary care physician - Dr. Isaura Linares M.D.
[2019-01-07] MEDS: Cephalexin 250 MG Cap PO SCH ×2 (13:22→20:45)
[2019-01-07] MEDS ORDERED: Haloperidol Lactate 5 MG/ML SDV IVPUSH PRN (15:56)
[2019-01-07] MEDS: Rosuvastatin 10 MG Tab PO SCH (20:45)
[2019-01-07] MEDS ORDERED: Melatonin 3 MG Tab PO SCH (21:00)
[2019-01-08 06:55] VITALS: BP 170/75
[2019-01-08] MEDS: Pantoprazole 40 MG Tab.CR PO SCH (08:18)
[2019-01-08] MEDS: Potassium Chloride 20 MEQ Tab.ER PO SCH ×2 (08:18→12:05)
[2019-01-08] MEDS: Atropine Sulfate Ophth 2 ML Drops OP SCH (08:19)
[2019-01-08] MEDS: amLODIPine 5 MG Tab PO SCH (08:20)
[2019-01-08] MEDS: prednisoLONE Acetate 1% Ophth Susp 5 ML Bottle EYELF SCH (08:20)
[2019-01-08] MEDS: Acetaminophen 500 MG Tab PO SCH (08:21)
[2019-01-08] MEDS: Citalopram 10 MG Tab PO SCH (08:21)
[2019-01-08] MEDS: Furosemide 40 MG Tab PO SCH (08:22)
[2019-01-08] MEDS: Gabapentin 100 MG Cap PO SCH (08:23)
[2019-01-08] MEDS: Cyanocobalamin (Vitamin B12) 1,000 MCG Tab PO SCH (08:23)
[2019-01-08] MEDS: Cephalexin 250 MG Cap PO SCH (08:23)
[2019-01-08] MEDS: Diclofenac Sodium 1% Gel 100 GM Tube TOP SCH (08:24)
--- NOTE | 2019-01-08 10:41 | PCM.DCSUM1 ---
Discharge Summary - Hospital Course Brief History: 78-year-old female from the shelter with a history of rheumatoid arthritis and recent urinary tract infection who presented with fever , weakness and lethargy. She was admitted for management of influenza B with hypoxic respiratory failure and urinary tract infection. Diagnosis: Stroke: No - Discharge Data Discharge Date: 01/08/19 Discharge Disposition: DC/Tfer to SNF 03 Condition: Good - Discharge Diagnosis/Problem(s) (1) Influenza B SNOMED Code(s): 62029324 ICD Code: J10.1 - FLU DUE TO OTH IDENT INFLUENZA VIRUS W OTH RESP MANIFEST Status: Acute Current Visit: Yes (2) Acute respiratory failure with hypoxia SNOMED Code(s): 56032217, 185756999 ICD Code: J96.01 - ACUTE RESPIRATORY FAILURE WITH HYPOXIA Status: Acute Current Visit: Yes (3) Bacteremia, escherichia coli SNOMED Code(s): 993521146624, 050895155866 ICD Code: R78.81 - BACTEREMIA Status: Acute Current Visit: Yes (4) Urinary tract infection SNOMED Code(s): 38808089 ICD Code: N39.0 - URINARY TRACT INFECTION, SITE NOT SPECIFIED Status: Acute Current Visit: Yes Qualifiers: Urinary tract infection type: acute cystitis Hematuria presence: with hematuria Qualified Code(s): N30.01 - Acute cystitis with hematuria (5) Arthritis, rheumatoid SNOMED Code(s): 93528967 ICD Code: M06.9 - RHEUMATOID ARTHRITIS, UNSPECIFIED Status: Chronic Current Visit: No Qualifiers: Rheumatoid arthritis location: multiple sites Rheumatoid factor presence: unspecified presence Qualified Code(s): M06.9 - Rheumatoid arthritis, unspecified - Patient Summary/Data Hospital Course: Carole presented to the emergency room with fever, weakness and lethargy. Workup in the emergency room revealed acute influenza B infection with hypoxic respiratory failure as well as evidence for urinary tract infection. She was started on Tamiflu at the time of presentation as well as ceftriaxone empirically. She received some IV fluids overnight. Temperature curve trended down over the first 24 hours. She did slowly improve throughout the course of the first 24 hours. The evening after admission her blood cultures did return positive with gram-negative rods and this was also identified in the urine culture. With the positive blood cultures meropenem was added to the antibiotic regimen because she had had recent antibiotics. She had additional improvement over the next 24 hours. Her fevers resolved. Respiratory status was slowly improving. Strength is slowly improving as was her appetite. The next morning her urine culture and blood cultures returned with pansensitive Escherichia coli. Antibiotics were transitioned to cephalexin at this point. She has tolerated this antibiotic well with no itching or adverse reactions. She has not had additional fevers. With the bacteremia I would recommend 9 additional doses of antibiotic therapy. Also noted during the hospital stay was accelerated hypertension with systolic blood pressures up as high as 200. We did start her on amlodipine at 5 mg which she has tolerated well. Blood pressures since that time have ranged from 130- 160. She may need some additional titration up to 10 mg. - Patient Instructions Diet: Regular Diet as Tolerated Activity: As Tolerated Showering/Bathing: May Shower Notify Provider of: Fever, Increased Pain, Nausea and/or Vomiting Other/Special Instructions: 1. You were in the hospital for management of both influenza B and a urinary tract infection. You have completed treatment for and improved from the influenza infection. No further precautions are necessary at this time. Regarding the urinary tract infection, the culture grew out a bacteria called Escherichia coli. This bacteria was also identified and blood cultures. I recommend 9 more doses of cephalexin (Keflex). You should take 500 mg twice daily with your next dose being due tonight. 2. Cephalexin (Keflex) can be removed from your allergy list as you have tolerated this medication fine with no adverse reactions. 3. Bilateral KNEE high CHELA stockings. 4. Continue usual home medications as well as previous shelter orders. 5. Seek medical attention if you develop fever greater than 101, you have significant shortness of breath or if you develop persistent vomiting or diarrhea. - Discharge Plan *PRESCRIPTION DRUG MONITORING PROGRAM REVIEWED*: Not Applicable *COPY OF PRESCRIPTION DRUG MONITORING REPORT IN PATIENT [place]: Not Applicable Prescriptions/Med Rec: amLODIPine Besylate [Amlodipine Besylate] 5 mg PO DAILY #30 tablet cephALEXin [Keflex] 500 mg PO BID #9 cap Home Medications: Home Meds Cyanocobalamin (Vitamin B-12) [Vitamin B-12] 1,000 mcg PO DAILY 06/10/17 [ History] Furosemide [Lasix] 40 mg PO DAILY 06/10/17 [History] methylPREDNISolone [Methylprednisolone] 8 mg PO DAILY 07/25/17 [History] Acetaminophen [Tylenol] 650 mg PO QID PRN 08/06/18 [History] Calcium Carbonate/Vitamin D3 [Calcium 600 + Vit D 400 Softgl] 1 each PO ASDIRECTED PRN 08/06/18 [History] Potassium Chloride 20 meq PO TID 08/06/18 [History] Rosuvastatin Calcium 5 mg PO BEDTIME 08/06/18 [History] Diclofenac Sodium [Voltaren] 1 dose TOP TID 09/22/18 [History] Menthol/Zinc Oxide [Calmoseptine] 1 applic TOP BID 09/22/18 [History] Gabapentin [Neurontin] 100 mg PO BID #60 capsule 09/25/18 [Rx] Atropine Sulfate In 0.9% NaCl [Atropine 0.01%-Ns Eye Drops] 1 drop EYELF DAILY 01/05/19 [History] Bismuth Subsalicylate [Pepto Bismol] 30 ml PO Q4HR PRN 01/05/19 [History] Citalopram Hydrobromide [Celexa] 10 mg PO DAILY 01/05/19 [History] Diclofenac Sodium [Voltaren] 1 applic TOP Q6HR PRN 01/05/19 [History] Esomeprazole [NexIUM] 40 mg PO DAILY 01/05/19 [History] Amanda Seal/Echinacea Purpurea [Echinacea & Goldenseal] 1 cap PO BID PRN [History] Menthol [Biofreeze] 1 applic TOP TID PRN 01/05/19 [History] Ondansetron HCl [Zofran] 4 mg PO Q8HR PRN 01/05/19 [History] prednisoLONE acetate [Pred Forte 1% Ophth Susp] 1 drop EYELF TID 01/05/19 [ History] Magnesium Hydroxide [Milk of Magnesia] 30 ml PO Q12H PRN cup 01/08/19 [Rx] Melatonin 9 mg PO BEDTIME tablet 01/08/19 [Rx] amLODIPine Besylate [Amlodipine Besylate] 5 mg PO DAILY #30 tablet 01/08/19 [Rx] cephALEXin [Keflex] 500 mg PO BID #9 cap 01/08/19 [Rx] Oxygen Therapy Mode: Nasal Cannula Oxygen Flow Rate (L/min): 1 (1-2 L/min) Maintain SpO2% greater than: 90 Patient Handouts: Urinary Tract Infection, Adult, Cephalexin tablets or capsules Referrals: Raffy Delarosa MD [Physician] - (follow-up as needed after the hospital stay ) - Discharge Summary/Plan Comment DC Time >30 min.: Yes (40 - shelter discharge) - Patient Data Vitals - Most Recent: Last Vital Signs Temp 36.1 C 01/08/19 06:53 Pulse 78 01/08/19 06:53 Resp 16 01/08/19 06:53 BP 170/75 H 01/08/19 08:20 Pulse Ox 79 L 01/08/19 06:53 Weight - Most Recent: 72.575 kg I&O - Last 24 hours: Intake & Output 01/07/19 01/08/19 01/08/19 22:59 06:59 14:59 Intake Total 240 Output Total 250 Balance -10 MAMIE Results - Last 24 hrs: Microbiology 01/05/19 07:15 Aerobic Blood Culture - Preliminary Blood - Venous - Iv Start NO GROWTH AFTER 3 DAYS Anaerobic Blood Culture - Preliminary NO GROWTH AFTER 3 DAYS 01/05/19 07:24 Aerobic Blood Culture - Final Blood - Venous - Iv Start Escherichia Coli Anaerobic Blood Culture - Final Escherichia Coli 01/05/19 07:17 Urine Culture - Final Urine, Clean Catch Escherichia Coli Med Orders - Current: Current Medications Acetaminophen (Tylenol) 650 mg PO QID PRN PRN Reason: Pain (mild 1-3) Acetaminophen (Tylenol Extra Strength) 1,000 mg PO TID [facility] Last Admin: 01/08/19 08:21 Dose: 1,000 mg Albuterol (Proventil Neb Soln) 2.5 mg NEB Q4H PRN PRN Reason: Shortness Of Breath/wheezing Amlodipine Besylate (Norvasc) 5 mg PO DAILY [facility] Last Admin: 01/08/19 08:20 Dose: 5 mg Atropine Sulfate (Atropine 1%) 0 ml OP DAILY [facility] Last Admin: 01/08/19 08:19 Dose: 1 drop Cephalexin (Keflex) 500 mg PO BID [facility] Last Admin: 01/08/19 08:23 Dose: 500 mg Citalopram Hydrobromide (Celexa) 10 mg PO DAILY [facility] Last Admin: 01/08/19 08:21 Dose: 10 mg Cyanocobalamin (Vitamin B12) 1,000 mcg PO DAILY [facility] Last Admin: 03/14/19 08:23 Dose: 1,000 mcg Diclofenac Sodium (Voltaren 1% Gel) 0 gm TOP TID [facility] Last Admin: 01/08/19 08:24 Dose: 1 applic Furosemide (Lasix) 40 mg PO DAILY [facility] Last Admin: 01/08/19 08:22 Dose: 40 mg Gabapentin (Neurontin) 100 mg PO BID [facility] Last Admin: 01/08/19 08:23 Dose: 100 mg Guaifenesin/Dextromethorphan (Robitussin Dm) 10 ml PO Q4H PRN PRN Reason: Cough Haloperidol Lactate (Haldol) 1 mg IVPUSH Q4H PRN PRN Reason: Agitation Magnesium Hydroxide (Milk Of Magnesia) 30 ml PO Q12H PRN PRN Reason: Constipation Melatonin (Melatonin) 9 mg PO BEDTIME [facility] Last Admin: 01/07/19 20:46 Dose: 9 mg Methylprednisolone (Medrol) 8 mg PO DAILY@0800 [facility] Last Admin: 01/08/19 08:18 Dose: 8 mg Ondansetron HCl (Zofran Odt) 4 mg PO Q6H PRN PRN Reason: Nausea able to take PO Ondansetron HCl (Zofran) 4 mg IV Q6H PRN PRN Reason: Nausea/Vomiting Pantoprazole Sodium (Protonix) 40 mg PO ACBREAKFAST [facility] Last Admin: 01/08/19 08:18 Dose: 40 mg Polyethylene Glycol (Miralax) 17 gm PO DAILY PRN PRN Reason: Constipation Potassium Chloride (Klor-Con M20) 20 meq PO TIDMEALS [facility] Last Admin: 01/08/19 08:18 Dose: 20 meq Prednisolone Acetate (Pred Forte 1% Ophth Susp) 0 ml EYELF TID [facility] Last Admin: 01/08/19 08:20 Dose: 1 drop Rosuvastatin Calcium (Crestor) 5 mg PO BEDTIME [facility] Last Admin: 01/07/19 20:45 Dose: 5 mg Discontinued Medications Acetaminophen (Tylenol) 650 mg PO NOW ONE Stop: 01/05/19 07:49 Last Admin: 01/05/19 07:55 Dose: 650 mg Diphenhydramine HCl (Benadryl) 25 mg IVPUSH ONETIME ONE Stop: 01/05/19 07:23 Last Admin: 01/05/19 07:28 Dose: 25 mg Lactated Ringer's (Ringers, Lactated) 1,000 mls @ 999 mls/hr IV ASDIRECTED [facility] Last Admin: 01/05/19 07:28 Dose: 999 mls/hr Meropenem 1 gm/ Sodium (Chloride) 100 mls @ 200 mls/hr IV Q8H [facility] Last Admin: 01/05/19 07:49 Dose: 200 mls/hr Lactated Ringer's (Ringers, Lactated) 1,000 mls @ 500 mls/hr IV BOLUS ONE Stop: 01/05/19 10:47 Last Admin: 01/05/19 08:50 Dose: 500 mls/hr Ceftriaxone Sodium 1 gm/ (Sodium Chloride) 50 mls @ 100 mls/hr IV Q24H [facility] Last Admin: 01/05/19 14:05 Dose: 100 mls/hr Lactated Ringer's (Ringers, Lactated) 1,000 mls @ 125 mls/hr IV ASDIRECTED [facility] Last Admin: 01/06/19 03:27 Dose: 125 mls/hr Meropenem 1 gm/ Sodium (Chloride) 50 mls @ 100 mls/hr IV Q8H [facility] Last Admin: 01/06/19 06:09 Dose: 100 mls/hr Meropenem 1 gm/ Sodium (Chloride) 50 mls @ 100 mls/hr IV Q8H [facility] Last Admin: 01/07/19 05:23 Dose: 100 mls/hr Oseltamivir Phosphate (Tamiflu) 75 mg PO ONETIME ONE Stop: 01/05/19 09:05 Last Admin: 01/05/19 09:11 Dose: 75 mg Oseltamivir Phosphate (Tamiflu) 30 mg PO BID [facility] Last Admin: 01/07/19 09:13 Dose: 30 mg - Exam Quality Assessment: Denies: Supplemental Oxygen General: Reports: Alert, Oriented, Cooperative, No Acute Distress Lungs: Reports: Normal Respiratory Effort GI/Abdominal Exam: Soft, No Distention Extremities: No Pedal Edema Psy/Mental Status: Reports: Alert, Normal Affect
== END 2019-01-08 13:02 | DRG 193 ==
LOC: JP.ED 06:52 → JP.MS 09:28
PROVIDERS: ADMIT Internal Medicine; ATTEND Internal Medicine
DX: J10.1 Influenza due to other identified influenza virus with other respiratory manifestations (principal); J96.01 Acute respiratory failure with hypoxia; R78.81 Bacteremia; N30.01 Acute cystitis with hematuria; B96.20 Unspecified Escherichia coli [E. coli] as the cause of diseases classified elsewhere; I10 Essential (primary) hypertension; M06.9 Rheumatoid arthritis, unspecified; R50.9 Fever, unspecified; R11.2 Nausea with vomiting, unspecified; E87.6 Hypokalemia; Z87.440 Personal history of urinary (tract) infections; E78.00 Pure hypercholesterolemia, unspecified; M19.90 Unspecified osteoarthritis, unspecified site; F41.9 Anxiety disorder, unspecified; F32.9 Major depressive disorder, single episode, unspecified; K21.9 Gastro-esophageal reflux disease without esophagitis; H54.7 Unspecified visual loss; Z79.2 Long term (current) use of antibiotics; M81.0 Age-related osteoporosis without current pathological fracture; M35.3 Polymyalgia rheumatica; R32 Unspecified urinary incontinence; R73.03 Prediabetes; Z88.1 Allergy status to other antibiotic agents; Z91.041 Radiographic dye allergy status; Z88.5 Allergy status to narcotic agent; Z88.0 Allergy status to penicillin; Z88.8 Allergy status to other drugs, medicaments and biological substances; Z79.52 Long term (current) use of systemic steroids; Z79.899 Other long term (current) drug therapy; H54.62 Unqualified visual loss, left eye, normal vision right eye
CPT/HCPCS: 36415; 71045; 80053; 81001; 83605; 85025; 86140; 87040 ×2; 87077; 87086; 87088; 87186 ×2; 87804 ×2; 96361; 96365; 96375; 99285; A9270 ×2; J1200; J2185; J7030; J7120 ×2; 80048; 85027; J0696; J7050

== ENCOUNTER 2019-02-21 16:57 | Emergency (ER) | payer MEDICARE, MEDICAID ==
--- NOTE | 2019-02-21 17:01 | EDM.PDOC ---
<Adelaide Hoff - Last Filed: 02/21/19 17:24> ED HPI GENERAL MEDICAL PROBLEM - General Chief Complaint: Respiratory Problem Stated Complaint: MED[facility] Time Seen by Provider: 02/21/19 17:01 Source of Information: Reports: Patient, EMS History Limitations: Reports: No Limitations - History of Present Illness INITIAL COMMENTS - FREE TEXT/NARRATIVE: pt was in the dining room at supper last nite and turned a certain way and now she has severe pain in her lower lumbar area. She also developed a cough and she coughed most of the nite and did feel sob. Her O2 sat dropped into the 80, s today. Onset: Today, Other (pt became sob. ) Duration: Hour(s): Location: Reports: Chest, Back - Related Data Allergies Allergy/AdvReac Type Severity Reaction Status Date / Time moxifloxacin HCl Allergy Severe Seizure Verified 02/21/19 17:15 [From Avelox] indomethacin Allergy Intermediate Itching Verified 02/21/19 17:15 azathioprine Allergy Unknown Itching Verified 02/21/19 17:15 clindamycin HCl Allergy Unknown Itching Verified 02/21/19 17:15 [From Cleocin] codeine Allergy Unknown Itching Verified 02/21/19 17:15 doxycycline Allergy Unknown Itching Verified 02/21/19 17:15 erythromycin base Allergy Unknown Itching Verified 02/21/19 17:15 [Erythromycin Base] etodolac [Etodolac] Allergy Unknown Itching Verified 02/21/19 17:15 methotrexate Allergy Unknown Itching Verified 02/21/19 17:15 paroxetine HCl [From Paxil] Allergy Unknown Itching Verified 02/21/19 17:15 Penicillins Allergy Unknown Itching Verified 02/21/19 17:15 Sulfa (Sulfonamide Allergy Unknown Itching Verified 02/21/19 17:15 Antibiotics) ibuprofen Allergy Cannot Verified 02/21/19 17:15 Remember Iodinated Contrast- Oral and Allergy Cannot Verified 02/21/19 17:15 IV Dye Remember lisinopril Allergy Cannot Verified 02/21/19 17:15 Remember sulfasalazine Allergy Cannot Verified 02/21/19 17:15 [From Azulfidine] Remember sertraline HCl [From Zoloft] AdvReac Unknown Weakness Verified 02/21/19 17:15 prednisone AdvReac Joint Pain Verified 04/27/19 17:15 Home Meds: Home Meds Cyanocobalamin (Vitamin B-12) [Vitamin B-12] 1,000 mcg PO DAILY 06/10/17 [ History] Furosemide [Lasix] 40 mg PO DAILY 06/10/17 [History] methylPREDNISolone [Methylprednisolone] 8 mg PO DAILY 07/25/17 [History] Acetaminophen [Tylenol] 650 mg PO QID PRN 08/06/18 [History] Calcium Carbonate/Vitamin D3 [Calcium 600 + Vit D 400 Softgl] 1 each PO ASDIRECTED PRN 08/06/18 [History] Potassium Chloride 20 meq PO TID 08/06/18 [History] Rosuvastatin Calcium 5 mg PO BEDTIME 08/06/18 [History] Diclofenac Sodium [Voltaren] 1 dose TOP TID 09/22/18 [History] Menthol/Zinc Oxide [Calmoseptine] 1 applic TOP BID 09/22/18 [History] Gabapentin [Neurontin] 100 mg PO BID #60 capsule 09/25/18 [Rx] Atropine Sulfate In 0.9% NaCl [Atropine 0.01%-Ns Eye Drops] 1 drop EYELF DAILY 01/05/19 [History] Bismuth Subsalicylate [Pepto Bismol] 30 ml PO Q4HR PRN 01/05/19 [History] Citalopram Hydrobromide [Celexa] 10 mg PO DAILY 01/05/19 [History] Diclofenac Sodium [Voltaren] 1 applic TOP Q6HR PRN 01/05/19 [History] Esomeprazole [NexIUM] 40 mg PO DAILY 01/05/19 [History] Amanda Seal/Echinacea Purpurea [Echinacea & Goldenseal] 1 cap PO BID PRN [History] Menthol [Biofreeze] 1 applic TOP TID PRN 01/05/19 [History] Ondansetron HCl [Zofran] 4 mg PO Q8HR PRN 01/05/19 [History] prednisoLONE acetate [Pred Forte 1% Ophth Susp] 1 drop EYELF TID 01/05/19 [ History] Magnesium Hydroxide [Milk of Magnesia] 30 ml PO Q12H PRN cup 01/08/19 [Rx] Melatonin 9 mg PO BEDTIME tablet 01/08/19 [Rx] amLODIPine Besylate [Amlodipine Besylate] 5 mg PO DAILY #30 tablet 01/08/19 [Rx] cephALEXin [Keflex] 500 mg PO BID #9 cap 01/08/19 [Rx] Past Medical History HEENT History: Reports: Impaired Vision, Other (See Below) Other HEENT History: 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 Cardiovascular History: Reports: Heart Murmur, High Cholesterol, Hypertension Respiratory History: Reports: None Gastrointestinal History: Reports: GERD Genitourinary History: Reports: Urinary Incontinence Other Genitourinary History: urinary frequency [employer] History: Reports: Musculoskeletal History: Reports: Arthritis, Osteoarthritis, Osteoporosis, RA Other Musculoskeletal History: polymyalgia rheumatica Neurological History: Reports: Seizure, Other (See Below) 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 Psychiatric History: Reports: Anxiety, Depression Endocrine/Metabolic History: Reports: Other (See Below) Other Endocrine/Metabolic History: Pre diabetic Hematologic History: Reports: None Immunologic History: Reports: None Oncologic (Cancer) History: Reports: None Dermatologic History: Reports: None - Infectious Disease History Infectious Disease History: Reports: Chicken Pox, Shingles - Past Surgical History HEENT Surgical History: Reports: Cataract Surgery, Tonsillectomy, Other (See Below) GI Surgical History: Reports: Colonoscopy Social & Family History - Family History Family Medical History: Noncontributory - Caffeine Use Caffeine Use: Reports: Coffee Caffeine Use Comment: decaf coffee ED ROS GENERAL - Review of Systems Review Of Systems: See Below Constitutional: Reports: No Symptoms, Other (pt develped sob. She has noted swelling in both legs. ) HEENT: Reports: No Symptoms Respiratory: Reports: Shortness of Breath, Cough Cardiovascular: Reports: No Symptoms Endocrine: Reports: No Symptoms GI/Abdominal: Reports: No Symptoms Musculoskeletal: Reports: Other (pt has pain in her lower back. ) ED EXAM, GENERAL - Physical Exam Exam: See Below Free Text/Narrative:: pt arrived with pain in the low carlos. This comes around from the sides and her low back. With 2 liters of o2 hher sats have come up. Her breathing is short and she has a dry unproductive cough. Exam Limited By: No Limitations General Appearance: Alert, Mild Distress Ears: Normal TMs Nose: Normal Inspection Throat/Mouth: Normal Inspection Head: Atraumatic Neck: Normal Inspection Respiratory/Chest: Decreased Breath Sounds, Rales Cardiovascular: Regular Rate, Rhythm, Tachycardia GI/Abdominal: Soft, Non-Tender (Female) Exam: Deferred Rectal (Female) Exam: Deferred Back Exam: Other (pt is tender over the spine lower lumbar. ) Extremities: Pedal Edema Neurological: Other (pt has plus 2 pitting edema. ) Psychiatric: Normal Affect Course - Vital Signs Last Recorded V/S: Last Vital Signs Temp 97 F 02/21/19 17:50 Pulse 93 02/21/19 17:50 Resp 20 02/21/19 17:50 BP 138/73 02/21/19 17:50 Pulse Ox 95 02/21/19 17:50 - Orders/Labs/Meds Orders: Active Orders 24 hr Category Date Time Status CULTURE URINE [RM] Urgent Lab 02/21/19 19:33 Ordered Labs: Laboratory Tests 02/21/19 02/21/19 02/21/19 Range/Units 17:11 17:11 17:21 WBC 12.9 H (4.5-11.0) K/uL RBC 4.14 (3.30-5.50) M/uL Hgb 11.8 L (12.0-15.0) g/dL Hct 38.7 (36.0-48.0) % MCV 94 (80-98) fL MCH 29 (27-31) pg MCHC 31 L (32-36) % Plt Count 203 (150-400) K/uL Neut % (Auto) 86 H (36-66) % Lymph % (Auto) 10 L (24-44) % Day % (Auto) 4 (2-6) % Eos % (Auto) 0 L (2-4) % Baso % (Auto) 0 (0-1) % Sodium 141 (140-148) mmol/L Potassium 4.3 (3.6-5.2) mmol/L Chloride 103 (100-108) mmol/L Carbon Dioxide 29 (21-32) mmol/L Anion Gap 9.1 (5.0-14.0) mmol/L BUN 24 H (7-18) mg/dL Creatinine 1.4 H D (0.6-1.0) mg/dL Est Cr Clr Drug Dosing 27.68 mL/min Estimated GFR (MDRD) 36 L (>60) Glucose 129 H (74-106) mg/dL Calcium 8.7 (8.5-10.1) mg/dL Total Bilirubin 0.3 (0.2-1.0) mg/dL AST 25 (15-37) U/L ALT 39 (12-78) U/L Alkaline Phosphatase 74 (46-116) U/L NT-Pro-B Natriuret Pep 464 H (5-450) pg/mL Total Protein 6.4 (6.4-8.2) g/dL Albumin 2.7 L (3.4-5.0) g/dL Globulin 3.7 H (2.3-3.5) g/dL Albumin/Globulin Ratio 0.7 L (1.2-2.2) Urine Color Urine Appearance Urine pH (4.5-8.0) Ur Specific Boutte (1.008-1.030) Urine Protein (NEGATIVE) mg/dL Urine Glucose (UA) (NEGATIVE) mg/dL Urine Ketones (NEGATIVE) mg/dL Urine Occult Blood (NEGATIVE) Urine Nitrite (NEGATIVE) Urine Bilirubin (NEGATIVE) Urine Urobilinogen (NORMAL) mg/dL Ur Leukocyte Esterase (NEGATIVE) Urine RBC (0-5) Urine WBC (0-5) Ur Epithelial Cells Amorphous Sediment Urine Bacteria Urine Mucus 02/21/19 Range/Units 19:03 WBC (4.5-11.0) K/uL RBC (3.30-5.50) M/uL Hgb (12.0-15.0) g/dL Hct (36.0-48.0) % MCV (80-98) fL MCH (27-31) pg MCHC (32-36) % Plt Count (150-400) K/uL Neut % (Auto) (36-66) % Lymph % (Auto) (24-44) % Day % (Auto) (2-6) % Eos % (Auto) (2-4) % Baso % (Auto) (0-1) % Sodium (140-148) mmol/L Potassium (3.6-5.2) mmol/L Chloride (100-108) mmol/L Carbon Dioxide (21-32) mmol/L Anion Gap (5.0-14.0) mmol/L BUN (7-18) mg/dL Creatinine (0.6-1.0) mg/dL Est Cr Clr Drug Dosing mL/min Estimated GFR (MDRD) (>60) Glucose (74-106) mg/dL Calcium (8.5-10.1) mg/dL Total Bilirubin (0.2-1.0) mg/dL AST (15-37) U/L ALT (12-78) U/L Alkaline Phosphatase (46-116) U/L NT-Pro-B Natriuret Pep (5-450) pg/mL Total Protein (6.4-8.2) g/dL Albumin (3.4-5.0) g/dL Globulin (2.3-3.5) g/dL Albumin/Globulin Ratio (1.2-2.2) Urine Color Yellow Urine Appearance Clear Urine pH 6.0 (4.5-8.0) Ur Specific Boutte 1.015 (1.008-1.030) Urine Protein Negative (NEGATIVE) mg/dL Urine Glucose (UA) Normal (NEGATIVE) mg/dL Urine Ketones Negative (NEGATIVE) mg/dL Urine Occult Blood Trace (NEGATIVE) Urine Nitrite Positive H (NEGATIVE) Urine Bilirubin Negative (NEGATIVE) Urine Urobilinogen Normal (NORMAL) mg/dL Ur Leukocyte Esterase Moderate (NEGATIVE) Urine RBC 5-10 H (0-5) Urine WBC 10-20 H (0-5) Ur Epithelial Cells Rare Amorphous Sediment Not seen Urine Bacteria Many Urine Mucus Not seen Meds: Medications Discontinued Medications Generic Name Dose Route Start Last Admin Trade Name Gurmeetq PRN Reason Stop Dose Admin Furosemide 60 mg 02/21/19 17:22 02/21/19 18:46 Lasix IVPUSH 02/21/19 17:23 60 mg ONETIME ONE Administration Hydromorphone HCl 0.5 mg 02/21/19 17:23 02/21/19 18:46 Dilaudid IVPUSH 02/21/19 17:24 0.5 mg ONETIME ONE Administration Ondansetron HCl 4 mg 02/21/19 17:24 02/21/19 18:46 Zofran IVPUSH 02/21/19 17:25 4 mg ONETIME ONE Administration Departure - Departure Disposition: Home, Self-Care 01 Clinical Impression: Acute exacerbation of congestive heart failure Qualifiers: Heart failure type: unspecified Qualified Code(s): I50.9 - Heart failure, unspecified - Discharge Information Referrals: Raffy Delarosa MD [Primary Care Provider] - Forms: ED Department Discharge Additional Instructions: Increase her Lasix to 40 mg in the morning and 40 mg in the afternoon, continue to weigh her oxygen for the next couple days recommend you follow-up with your primary care in the next 2-3 days for reevaluation, call or return to the emergency department worsening of symptoms - My Orders Last 24 Hours: My Active Orders 02/21/19 19:33 CULTURE URINE [RM] Urgent - Assessment/Plan Last 24 Hours: My Active Orders 02/21/19 19:33 CULTURE URINE [RM] Urgent <OfficerHussain - Last Filed: 02/21/19 19:37> Course - Re-Assessments/Exams Free Text/Narrative Re-Assessment/Exam: 02/21/19 19:33 Took over care from Dr. Hoff at 1815 Departure - Departure Time of Disposition: 19:35 Condition: Fair - Assessment/Plan Plan: Assessment Acuity = acute Site and laterality = exacerbation of congestive heart failure Etiology = unclear etiology Manifestations = hypoxia and dyspnea Location of injury = Home Lab values = WBC elevated at 12.9 consistent leukocytosis creatinine elevated 1.4 consistent chronic renal failure stage G IIIB BNP elevated slightly at 464 albumin low at 2.7 consistent hypoalbuminemia urinalysis positive for nitrates RBCs 5-10 consistent hematuria and 10-20 WBCs consistent with pyuria chest x- ray shows early congestive heart failure Plan She had good results with the 60 mg IV Lasix provided in the ED she did remain hypoxic in the mid 80s however responded nicely to 2 L via nasal cannula she does have oxygen at home which she will use. Plan is to increase her Lasix to 40 mg twice a day she also has an ongoing urinary tract infection currently on Keflex culture is pending she will use her oxygen at home follow-up primary care in 2-3 days for reevaluation I did talk to her about hospitalization because of her hypoxia she declined she would like to try this as an outpatient first. This note was dictated using [employer] voice recognition software please call with any questions on syntax or grammar.
[2019-02-21] MEDS ORDERED: Furosemide 40 MG/4 ML VIAL IVPUSH ONE (17:22)
[2019-02-21] MEDS ORDERED: HYDROmorphone 0.5 MG/0.5 ML Syringe IVPUSH ONE (17:23)
[2019-02-21] MEDS ORDERED: Ondansetron 4 MG/2 ML SDV IVPUSH ONE (17:24)
--- NOTE | 2019-02-21 17:44 | CRLCR ---
INDICATION: Low O2 sats. TECHNIQUE: Portable semi upright AP view of the chest. COMPARISON: 01/05/2019. FINDINGS: Stable mildly enlarged heart. Mild pulmonary vascular congestion and low grade interstitial edema. No airspace consolidation is seen to suggest pneumonia. No appreciable pleural fluid on this single view study. No pneumothorax. IMPRESSION: Findings suggesting low-grade CHF. Dictated by Ygoesh Maxwell MD @ 02/21/2019 5:43:01 PM Dictated by: Yogesh Maxwell MD @ 02/21/2019 17:43:14 (Electronically Signed)
[2019-02-21 17:57] VITALS: BP 138/73
--- NOTE | 2019-02-21 18:30 | CRLCR ---
INDICATION: Low back pain. TECHNIQUE: Lumbar spine 5 view. COMPARISON: Radiographs 12/25/2017. Findings and impression: Anterior wedge compression deformity of L2 is not significantly changed. Mild central compression deformity of T12 appears new but is more likely chronic. No suspicious bone lesion. No acute malalignment. Stable moderate loss of intervertebral disc space height at L1-L2. Stable mild loss of intervertebral space height at the remaining levels. Multilevel facet joint degenerative changes. 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 There are pelvic phleboliths. Dictated by Jerry Vargas MD @ 02/21/2019 6:27:26 PM Dictated by: Jerry Vargas MD @ 02/21/2019 18:27:36 (Electronically Signed)
== END 2019-02-21 21:02 | disposition home or self-care (01) ==
LOC: JP.ED 16:57
DX: I11.0 Hypertensive heart disease with heart failure (principal); I50.9 Heart failure, unspecified; R09.02 Hypoxemia; M06.9 Rheumatoid arthritis, unspecified; M19.90 Unspecified osteoarthritis, unspecified site; Z98.49 Cataract extraction status, unspecified eye; Z98.890 Other specified postprocedural states; Z88.0 Allergy status to penicillin; Z88.2 Allergy status to sulfonamides; Z91.041 Radiographic dye allergy status; Z88.8 Allergy status to other drugs, medicaments and biological substances; Z79.899 Other long term (current) drug therapy; Z88.1 Allergy status to other antibiotic agents; Z88.5 Allergy status to narcotic agent
CPT/HCPCS: 36415; 71045; 72110; 80053; 81001; 83880; 85025; 87086; 87088; 87186; 96374; 96375; 99283; 99284; J1170; J1940; J2405

== ENCOUNTER 2019-02-22 10:15 | Inpatient (IN) | payer MEDICARE, MEDICAID ==
[2019-02-22] MEDS ORDERED: Albuterol 0.083% 2.5 MG/3 ML Neb Soln NEB ONE (10:49)
--- NOTE | 2019-02-22 11:54 | CRLCR ---
Shortness of breath cough Portable chest comparison chest x-ray 02/21/2019. FINDINGS: Low lung volumes. Stable prominent cardiac silhouette. Mild prominence of the interstitial markings. No effusion or pneumothorax. IMPRESSION: 1. Stable chest. Findings could represent very mild pulmonary edema or fibrosis. Dictated by Janae Stovall MD @ Feb 22 2019 11:51AM Signed by Dr. Janae Stovall @ Feb 22 2019 11:53AM
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
[2019-02-22] MEDS ORDERED: Benzonatate 100 MG Cap PO ONE (12:10)
[2019-02-22] MEDS ORDERED: Potassium Chloride 20 MEQ Tab.ER PO ONE (12:17)
[2019-02-22] MEDS ORDERED: Azithromycin 250 MG Tab PO ONE (13:05)
[2019-02-22] MEDS ORDERED: cefTRIAXone 1 GM in Sodium Chloride 0.9% 50 ML IV SCH (13:15)
--- NOTE | 2019-02-22 13:36 | PCM.HP ---
H&P History of Present Illness - General Date of Service: 02/22/19 Admit Problem/Dx: Admission Diagnosis/Problem Admission Diagnosis/Problem Acute bronchitis Source of Information: Patient, Family, Provider History Limitations: Reports: No Limitations - History of Present Illness Initial Comments - Free Text/Narative: Chief complaint: I'm miserable Carole presents to the ED from [facility] with two days of cough, congestion, malaise and was hypoxic this morning. She was seen in the emergency room last night and there was concern for congestive heart failure. She did receive a dose of furosemide and felt a little bit better. Overnight she got worse. She was hypoxic this morning during routine vitals. She reports feeling well on and Saturday but yesterday developed nasal congestion, rhinorrhea as well as a little dry cough and congestion. She has had fevers but has not had shaking chills. She feels a little short of breath. Energy is greatly decreased. Appetite has been normal. No complaints of abdominal pain or nausea. She has not noticed any change in her urinary habits. She has possible sick contacts at the intermediate and has noted multiple people in her vicinity have been coughing and/or sneezing. No complaints of chest pain or pleuritic chest pain. She has pain in her right calf. No complaints of pain on the left side. Workup in the emergency room was suggestive of acute bronchitis with hypoxic respiratory failure. Urine sample from last night suggestive of infection and urine culture growing gram-negative rods today. Creatinines up to 1.4 with a baseline of 0.8-0.9. She will be admitted for further management. - Related Data Allergies/Adverse Reactions: Allergies Allergy/AdvReac Type Severity Reaction Status Date / Time moxifloxacin HCl Allergy Severe Seizure Verified 02/21/19 17:15 [From Avelox] indomethacin Allergy Intermediate Itching Verified 02/21/19 17:15 azathioprine Allergy Unknown Itching Verified 02/21/19 17:15 clindamycin HCl Allergy Unknown Itching Verified 02/21/19 17:15 [From Cleocin] codeine Allergy Unknown Itching Verified 02/21/19 17:15 doxycycline Allergy Unknown Itching Verified 02/21/19 17:15 erythromycin base Allergy Unknown Itching Verified 02/21/19 17:15 [Erythromycin Base] etodolac [Etodolac] Allergy Unknown Itching Verified 02/21/19 17:15 methotrexate Allergy Unknown Itching Verified 02/21/19 17:15 paroxetine HCl [From Paxil] Allergy Unknown Itching Verified 02/21/19 17:15 Penicillins Allergy Unknown Itching Verified 02/21/19 17:15 Sulfa (Sulfonamide Allergy Unknown Itching Verified 02/21/19 17:15 Antibiotics) ibuprofen Allergy Cannot Verified 02/21/19 17:15 Remember Iodinated Contrast- Oral and Allergy Cannot Verified 02/21/19 17:15 IV Dye Remember lisinopril Allergy Cannot Verified 02/21/19 17:15 Remember sulfasalazine Allergy Cannot Verified 02/21/19 17:15 [From Azulfidine] Remember sertraline HCl [From Zoloft] AdvReac Unknown Weakness Verified 02/21/19 17:15 prednisone AdvReac Joint Pain Verified 02/21/19 17:15 Home Medications: Home Meds Cyanocobalamin (Vitamin B-12) [Vitamin B-12] 1,000 mcg PO DAILY 06/10/17 [ History] Furosemide [Lasix] 40 mg PO DAILY 06/10/17 [History] methylPREDNISolone [Methylprednisolone] 8 mg PO DAILY 07/25/17 [History] Acetaminophen [Tylenol] 650 mg PO QID PRN 08/06/18 [History] Calcium Carbonate/Vitamin D3 [Calcium 600 + Vit D 400 Softgl] 1 each PO ASDIRECTED PRN 08/06/18 [History] Rosuvastatin Calcium 5 mg PO BEDTIME 08/06/18 [History] Gabapentin [Neurontin] 100 mg PO BID #60 capsule 09/25/18 [Rx] Atropine Sulfate In 0.9% NaCl [Atropine 0.01%-Ns Eye Drops] 1 drop EYELF DAILY 01/05/19 [History] Bismuth Subsalicylate [Pepto Bismol] 30 ml PO Q4HR PRN 01/05/19 [History] Citalopram Hydrobromide [Celexa] 10 mg PO DAILY 01/05/19 [History] Esomeprazole [NexIUM] 40 mg PO DAILY 01/05/19 [History] Amanda Seal/Echinacea Purpurea [Echinacea & Goldenseal] 1 cap PO BID PRN [History] Ondansetron HCl [Zofran] 4 mg PO Q8HR PRN 01/05/19 [History] prednisoLONE acetate [Pred Forte 1% Ophth Susp] 1 drop EYELF BID 01/05/19 [ History] Magnesium Hydroxide [Milk of Magnesia] 30 ml PO Q12H PRN cup 01/08/19 [Rx] Cranberry Fruit [Cranberry] 450 mg PO DAILY 02/22/19 [History] Potassium Chloride 20 meq PO TID 02/22/19 [History] amLODIPine Besylate [Amlodipine Besylate] 10 mg PO BEDTIME 02/22/19 [History] Past Medical History HEENT History: Reports: Impaired Vision, Other (See Below) Other HEENT History: 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 Cardiovascular History: Reports: Heart Murmur, High Cholesterol, Hypertension Respiratory History: Reports: None Gastrointestinal History: Reports: GERD Genitourinary History: Reports: Urinary Incontinence Other Genitourinary History: urinary frequency [employer] History: Reports: Musculoskeletal History: Reports: Arthritis, Osteoarthritis, Osteoporosis, RA Other Musculoskeletal History: polymyalgia rheumatica Neurological History: Reports: Seizure, Other (See Below) 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 Psychiatric History: Reports: Anxiety, Depression Endocrine/Metabolic History: Reports: Other (See Below) Other Endocrine/Metabolic History: Pre diabetic Hematologic History: Reports: None Immunologic History: Reports: None Oncologic (Cancer) History: Reports: None Dermatologic History: Reports: None - Infectious Disease History Infectious Disease History: Reports: Chicken Pox, Shingles - Past Surgical History HEENT Surgical History: Reports: Cataract Surgery, Tonsillectomy, Other (See Below) GI Surgical History: Reports: Colonoscopy Social & Family History - Family History Family Medical History: Noncontributory - Tobacco Use Smoking Status *Q: Never Smoker Second Hand Smoke Exposure: No - Caffeine Use Caffeine Use: Reports: Coffee Caffeine Use Comment: decaf coffee - Alcohol Use Alcohol Use History: No - Recreational Drug Use Recreational Drug Use: No H&P Review of Systems - Review of Systems: Review Of Systems: See Below Free Text/Narrative: A complete 12 point review of systems was obtained. Pertinent positives and negatives are noted in the history of present illness. All other systems were reviewed and were negative except as noted. Exam - Exam Exam: See Below - Vital Signs Vital Signs: Last Vital Signs Temp 36.8 C 02/22/19 10:45 Pulse 85 02/22/19 10:45 Resp 20 02/22/19 10:45 BP 143/61 H 02/22/19 10:17 Pulse Ox 97 02/22/19 10:45 Weight: 75.296 kg - Exam Quality Assessment: Supplemental Oxygen General: Alert, Oriented, Cooperative, Mild Distress HEENT: No: Mucosa Moist & Brice (dry), Scleral Icterus Neck: Trachea Midline, Lymphadenopathy Lungs: Normal Respiratory Effort, Rhonchi (moderate upper resp rhonchi), Wheezing (rare wheezing bilateral upper lungs) Cardiovascular: Regular Rate, Regular Rhythm, Systolic Murmur GI/Abdominal Exam: Normal Bowel Sounds, Soft, Non-Tender, No Distention Back Exam: Normal Inspection. No: Full Range of Motion Extremities: No Pedal Edema (some edema right leg from mid mcbride to knee), Other (ulnar deviation of digits on both hands). No: Increased Warmth Skin: Warm, Dry Neuro Extensive - Mental Status: Alert, Oriented x3, Nl Response to Commands Neuro Extensive - Motor, Sensory, Reflexes: No: Dysarthria, Abnormal Motor, Tremor Psychiatric: Alert, Normal Affect - Patient Data Lab Results Last 24 hrs: Laboratory Results - last 24 hr 02/22/19 02/22/19 02/22/19 Range/Units 10:33 10:45 10:45 WBC 11.3 H (4.5-11.0) K/uL RBC 3.85 (3.30-5.50) M/uL Hgb 11.2 L (12.0-15.0) g/dL Hct 36.8 (36.0-48.0) % MCV 96 (80-98) fL MCH 29 (27-31) pg MCHC 30 L (32-36) % Plt Count 181 (150-400) K/uL Add Manual Diff Yes Neutrophils % (Manual) 76 H (36-66) % Band Neutrophils % 2 L (5-11) % Lymphocytes % (Manual) 15 L (24-44) % Monocytes % (Manual) 5 (2-6) % Eosinophils % (Manual) 2 (2-4) % D-Dimer, Quantitative (0.0-400.0) ng/mL Puncture Site Lt radial ABG pH 7.406 (7.350-7.450) ABG pCO2 45.3 H (35.0-42.0) mmHg ABG pO2 80.5 (75.0-100.0) mmHg ABG HCO3 27.9 H (22.0-26.0) mmol/L ABG Total CO2 25.3 H (21.0-25.0) mmol/L ABG O2 Saturation 96.0 (95.0-98.0) % ABG O2 Content 15.3 (15.0-23.0) %vol ABG Base Excess 3.2 mm/L ABG Hemoglobin 11.5 L (12.0-16.0) g/dL ABG Oxyhemoglobin 93.8 % ABG Carboxyhemoglobin 1.7 H (0.0-1.6) % ABG Methemoglobin 0.6 % Toy Test Passed O2 Delivery Device Nasal cannula Oxygen Flow Rate 2 L Sodium 142 (140-148) mmol/L Potassium 3.0 L (3.6-5.2) mmol/L Chloride 102 (100-108) mmol/L Carbon Dioxide 29 (21-32) mmol/L Anion Gap 14.0 (5.0-14.0) mmol/L BUN 24 H (7-18) mg/dL Creatinine 1.4 H (0.6-1.0) mg/dL Est Cr Clr Drug Dosing 23.02 mL/min Estimated GFR (MDRD) 36 L (>60) Glucose 146 H (74-106) mg/dL Calcium 8.3 L (8.5-10.1) mg/dL 02/22/19 Range/Units 11:14 WBC (4.5-11.0) K/uL RBC (3.30-5.50) M/uL Hgb (12.0-15.0) g/dL Hct (36.0-48.0) % MCV (80-98) fL MCH (27-31) pg MCHC (32-36) % Plt Count (150-400) K/uL Add Manual Diff Neutrophils % (Manual) (36-66) % Band Neutrophils % (5-11) % Lymphocytes % (Manual) (24-44) % Monocytes % (Manual) (2-6) % Eosinophils % (Manual) (2-4) % D-Dimer, Quantitative 3520 H (0.0-400.0) ng/mL Puncture Site ABG pH (7.350-7.450) ABG pCO2 (35.0-42.0) mmHg ABG pO2 (75.0-100.0) mmHg ABG HCO3 (22.0-26.0) mmol/L ABG Total CO2 (21.0-25.0) mmol/L ABG O2 Saturation (95.0-98.0) % ABG O2 Content (15.0-23.0) %vol ABG Base Excess mm/L ABG Hemoglobin (12.0-16.0) g/dL ABG Oxyhemoglobin % ABG Carboxyhemoglobin (0.0-1.6) % ABG Methemoglobin % Toy Test O2 Delivery Device Oxygen Flow Rate L Sodium (140-148) mmol/L Potassium (3.6-5.2) mmol/L Chloride (100-108) mmol/L Carbon Dioxide (21-32) mmol/L Anion Gap (5.0-14.0) mmol/L BUN (7-18) mg/dL Creatinine (0.6-1.0) mg/dL Est Cr Clr Drug Dosing mL/min Estimated GFR (MDRD) (>60) Glucose (74-106) mg/dL Calcium (8.5-10.1) mg/dL Result Diagrams: 02/22/19 10:45 02/22/19 10:45 Imaging Impressions Last 24 hrs: CXR - images personally reviewed and compared to last night. There is some scarring or fluid in the fissure on the right. Trace edema vs fibrosis. No obvious mass, infiltrate or effusion. *Q Meaningful Use (ADM) - VTE Risk Assess *Q Each Risk Factor Represents 1 Point: Swollen Legs, Current, Obesity ( BMI > 25 kg/m2) Total Score 1 Point Risk Factors: 2 Each Risk Factor Represents 2 Points: Malignancy (present or previous) Total Score 2 Point Risk Factors: 2 Each Risk Factor Represents 3 Points: Age 75 Years or Greater, History of DVT/PE Total Score 3 Point Risk Factors: 6 Each Risk Factor Represents 5 Points: None Total Score 5 Point Risk Factors: 0 Venous Thromboembolism Risk Factor Score *Q: 10 - Problem List (1) Acute bronchitis SNOMED Code(s): 16057824 ICD Code: J20.9 - ACUTE BRONCHITIS, UNSPECIFIED Status: Acute Current Visit: Yes Qualifiers: Bronchitis organism: unspecified organism Qualified Code(s): J20.9 - Acute bronchitis, unspecified (2) Acute respiratory failure with hypoxia SNOMED Code(s): 37373450, 454778765 ICD Code: J96.01 - ACUTE RESPIRATORY FAILURE WITH HYPOXIA Status: Acute Current Visit: No (3) Urinary tract infection SNOMED Code(s): 03164329 ICD Code: N39.0 - URINARY TRACT INFECTION, SITE NOT SPECIFIED Status: Acute Current Visit: No Qualifiers: Urinary tract infection type: acute cystitis Hematuria presence: with hematuria Qualified Code(s): N30.01 - Acute cystitis with hematuria (4) Hypokalemia SNOMED Code(s): 32993177 ICD Code: E87.6 - HYPOKALEMIA Status: Acute Current Visit: Yes (5) Arthritis, rheumatoid SNOMED Code(s): 99304646 ICD Code: M06.9 - RHEUMATOID ARTHRITIS, UNSPECIFIED Status: Chronic Current Visit: No Qualifiers: Rheumatoid arthritis location: multiple sites Rheumatoid factor presence: unspecified presence Qualified Code(s): M06.9 - Rheumatoid arthritis, unspecified Problem List Initiated/Reviewed/Updated: Yes Orders Last 24hrs: Active Orders 24 hr Category Date Time Status Patient Status Manage Transfer [TRANSFER] Routine ADT 02/22/19 13:23 Ordered RT Aerosol Therapy [RC] ASDIRECTED Care 02/22/19 10:50 Active VL Duplex Lwr Ext Veins Comp [US] Stat Exams 02/22/19 12:02 Taken cefTRIAXone [Rocephin] 1 gm Med 02/22/19 13:15 Active Sodium Chloride 0.9% [Normal Saline] 50 ml IV Q24H Resuscitation Status Routine Resus Stat 02/22/19 13:25 Ordered Medication Orders Ceftriaxone Sodium 1 gm/ (Sodium Chloride) 50 mls @ 100 mls/hr IV Q24H [facility] Assessment/Plan Comment:: ASSESSMENT AND PLAN - Acute bronchitis - complicated by acute respiratory failure with hypoxia. Could be viral or bacterial. Planning to empirically cover with antibiotics given the hypoxic respiratory failure and leukocytosis. She has had fevers at the intermediate. -Ceftriaxone and azithromycin -Supplement oxygen -Scheduled and as needed nebulizers -Symptomatically management of cough Acute cystitis without hematuria - urine sample from last night (different ED encounter)suggestive of infection. Culture growing a gram-negative rods with identification pending. -Ceftriaxone -Follow-up cultures Acute kidney injury - creatinine up more than 50% from baseline. Likely related to acute infections. -1 L of normal saline -Repeat labs in the morning Hypokalemia - history of chronic hypokalemia. She has received 20 mEq in the emergency room. -Potassium 20 mEq 3 times a day Elevated d-dimer - history of DVT and PE. Right leg was clear. Left leg showed mild nonocclusive thrombus in the left leg. No symptoms at this time. Rheumatoid arthritis - symptoms are stable at this time. -Continue home medications Maintenance issues - - DVT prophylaxis - CHELA stockings - GI prophylaxis - PPI - Nutrition - low sodium - Hagan catheter - not indicated CODE STATUS - full code Admission justification - This patient will be admitted for inpatient services and is medically appropriate meeting medical necessity for inpatient admission as outlined in my documentation. I reasonably expect the patient will require inpatient services that span a period time over 2 midnights. I reasonably expect this patient to be discharged or transferred within 96 hours after admission to the [facility]. Disposition - I would anticipate discharge back to the intermediate after the hospital stay Primary care physician - Dr. Isaura Linares M.D.
--- NOTE | 2019-02-22 13:51 | CRLUS ---
INDICATION: Elevated D-dimers shortness of breath. TECHNIQUE: A compression venous ultrasound exam was performed of both lower extremities using beltran scale imaging, color Doppler and spectral Doppler analysis. FINDINGS: Sonographic imaging of the right lower extremity demonstrates normal compressibility and color Doppler venous blood flow within the common femoral, deep femoral, and proximal greater saphenous veins. Within the thighs the femoral veins are patent and compressible. At a lower level the popliteal and posterior tibial veins also show normal compressibility and color Doppler venous blood flow. Evaluation of the left lower extremity demonstrates nonocclusive thrombus from the left proximal femoral vein to the popliteal vein which is partially compressible with blood flow present. There is full compressibility and blood flow in the left common femoral vein, deep femoral vein, posterior tibial and peroneal veins. IMPRESSION: Nonocclusive clot in the left proximal femoral vein to the popliteal vein. Negative for DVT in the right lower extremity. Results called to Dr. Escalera on 02/22/2019 at 1:48 p.m. Dictated by Janae Stovall MD @ Feb 22 2019 1:44PM Signed by Dr. Janae Stovall @ Feb 22 2019 1:49PM
--- NOTE | 2019-02-22 15:05 | PCM.SN ---
- Free Text/Narrative Note: Left leg venous US showed proximal but non-occlusive DVT. INR ordered. will start enoxaparin and warfarin. Medardo Linares MD
[2019-02-22] MEDS ORDERED: Ondansetron 4 MG Tab.DIS PO PRN (15:21)
[2019-02-22] MEDS ORDERED: Warfarin 5 MG Tab PO ONE (15:21)
[2019-02-22] MEDS ORDERED: Sodium Chloride 0.9% 1,000 ML IV SCH (15:21)
[2019-02-22] MEDS ORDERED: Polyethylene Glycol 3350 Powder 17 GM Packet PO PRN (15:21)
[2019-02-22] MEDS ORDERED: Magnesium Hydroxide 400 MG/5 ML Susp 30 ML Cup PO PRN (15:21)
[2019-02-22] MEDS: Albuterol/Ipratropium 3.0-0.5 MG/3 ML Neb Soln NEB SCH ×2 (16:16→20:04)
[2019-02-22] MEDS: Potassium Chloride 20 MEQ Tab.ER PO SCH ×2 (17:26→20:01)
[2019-02-22] MEDS: Enoxaparin 80 MG/0.8 ML Syringe SUBCUT SCH (17:26)
[2019-02-22] MEDS: Gabapentin 100 MG Cap PO SCH (20:01)
[2019-02-22] MEDS: Rosuvastatin 10 MG Tab PO SCH (20:03)
[2019-02-22] MEDS: prednisoLONE Acetate 1% Ophth Susp 5 ML Bottle EYELF SCH (20:04)
[2019-02-22] MEDS ORDERED: amLODIPine 5 MG Tab PO SCH (21:00)
[2019-02-22] MEDS ORDERED: amLODIPine 10 MG Tab PO SCH (21:00)
[2019-02-23] MEDS: Albuterol 0.083% 2.5 MG/3 ML Neb Soln NEB PRN (05:03)
[2019-02-23] MEDS: Acetaminophen 325 MG Tab PO PRN (05:07)
[2019-02-23] MEDS: guaiFENesin/Dextromethorphan 100-10 MG/5 ML Soln 10 ML Cup PO PRN ×2 (05:23→18:25)
[2019-02-23] MEDS: Albuterol/Ipratropium 3.0-0.5 MG/3 ML Neb Soln NEB SCH ×4 (07:17→20:45)
[2019-02-23] MEDS ORDERED: Sodium Chloride 0.9% 1,000 ML IV ONE (07:50)
[2019-02-23] MEDS ORDERED: Potassium Chloride Riders 40 MEQ in Premix Bag 1 BAG IV ONE (08:45)
[2019-02-23] MEDS ORDERED: Atropine Sulfate Ophth 2 ML Drops OP SCH (09:00)
[2019-02-23] MEDS ORDERED: Potassium Chloride 20 MEQ Tab.ER PO ONE (09:15)
[2019-02-23] MEDS: Atropine Sulfate Ophth 2 ML Drops OP SCH (09:38)
[2019-02-23] MEDS: prednisoLONE Acetate 1% Ophth Susp 5 ML Bottle EYELF SCH ×2 (09:40→20:40)
[2019-02-23] MEDS: Citalopram 10 MG Tab PO SCH (09:45)
[2019-02-23] MEDS: Cyanocobalamin (Vitamin B12) 1,000 MCG Tab PO SCH (09:46)
[2019-02-23] MEDS: Pantoprazole 40 MG Tab.CR PO SCH (09:46)
[2019-02-23] MEDS: Gabapentin 100 MG Cap PO SCH ×2 (09:46→20:40)
[2019-02-23] MEDS: Potassium Chloride 20 MEQ Tab.ER PO SCH ×3 (09:46→16:54)
[2019-02-23] MEDS: Azithromycin 250 MG Tab PO SCH (09:47)
[2019-02-23] MEDS: Potassium Chloride 20 MEQ, Lidocaine 1% 2 ML in Sodium Chloride 0.9% 100 ML IV SCH ×2 (10:39→15:22)
[2019-02-23] MEDS ORDERED: Warfarin 5 MG Tab PO SCH (13:00)
[2019-02-23] MEDS: cefTRIAXone 1 GM in Sodium Chloride 0.9% 50 ML IV SCH (14:04)
--- NOTE | 2019-02-23 16:50 | PCM.PN ---
- General Info Date of Service: 02/23/19 Subjective Update: Ms. Gonzalez is improved since admission with less shortness of breath. She did experience an episode of hypotension earlier this morning, associated with lightheadedness. She feels better now with improved appetite and strength. Functional Status: Reports: Tolerating Diet, Urinating - Review of Systems General: Reports: Weakness. Denies: Fever, Chills Pulmonary: Reports: Shortness of Breath. Denies: Pleuritic Chest Pain, Cough, Sputum, Hemoptysis, Wheezing Cardiovascular: Reports: Dyspnea on Exertion, Edema. Denies: Chest Pain, Palpitations, Orthopnea, PND, Lightheadedness Gastrointestinal: Reports: No Symptoms - Patient Data Vitals - Most Recent: Last Vital Signs Temp 97.7 F 02/23/19 15:00 Pulse 78 02/23/19 15:00 Resp 16 02/23/19 15:00 BP 102/52 L 02/23/19 15:00 Pulse Ox 92 L 02/23/19 15:00 Weight - Most Recent: 168 lb 15.996 oz I&O - Last 24 Hours: Intake & Output 02/23/19 02/23/19 02/23/19 06:59 14:59 22:59 Intake Total 150 1150 Balance 150 1150 Lab Results Last 24 Hours: Laboratory Results - last 24 hr 02/23/19 02/23/19 02/23/19 Range/Units 06:21 06:21 06:21 WBC 15.9 H (4.5-11.0) K/uL RBC 3.82 (3.30-5.50) M/uL Hgb 10.8 L (12.0-15.0) g/dL Hct 36.5 (36.0-48.0) % MCV 96 (80-98) fL MCH 28 (27-31) pg MCHC 30 L (32-36) % Plt Count 189 (150-400) K/uL PT 11.7 (9.5-12.0) sec INR 1.07 (0.80-1.20) Sodium 143 (140-148) mmol/L Potassium 3.1 L (3.6-5.2) mmol/L Chloride 104 (100-108) mmol/L Carbon Dioxide 30 (21-32) mmol/L Anion Gap 12.1 (5.0-14.0) mmol/L BUN 23 H (7-18) mg/dL Creatinine 1.3 H (0.6-1.0) mg/dL Est Cr Clr Drug Dosing 24.79 mL/min Estimated GFR (MDRD) 39 L (>60) Glucose 173 H (74-106) mg/dL Calcium 7.7 L (8.5-10.1) mg/dL Med Orders - Current: Current Medications Acetaminophen (Tylenol) 650 mg PO Q4H PRN PRN Reason: Pain (Mild 1-3)/fever Last Admin: 02/23/19 05:07 Dose: 650 mg Albuterol (Proventil Neb Soln) 2.5 mg NEB Q4H PRN PRN Reason: Shortness Of Breath/wheezing Last Admin: 02/23/19 05:03 Dose: 2.5 mg Albuterol/Ipratropium (Duoneb 3.0-0.5 Mg/3 Ml) 3 ml NEB QIDRT [facility] Last Admin: 02/23/19 10:50 Dose: 3 ml Atropine Sulfate (Atropine 1%) 0 ml OP DAILY [facility] Last Admin: 02/23/19 09:38 Dose: 1 drop Azithromycin (Zithromax) 500 mg PO DAILY [facility] Last Admin: 02/23/19 09:47 Dose: 500 mg Benzonatate (Tessalon Perles) 100 mg PO TID PRN PRN Reason: Cough Citalopram Hydrobromide (Celexa) 10 mg PO DAILY [facility] Last Admin: 02/23/19 09:45 Dose: 10 mg Cyanocobalamin (Vitamin B12) 1,000 mcg PO DAILY [facility] Last Admin: 02/23/19 09:46 Dose: 1,000 mcg Enoxaparin Sodium (Lovenox) 80 mg 1 mg/kg (75 mg) SUBCUT DAILY@1600 [facility] Last Admin: 02/22/19 17:26 Dose: 80 mg Gabapentin (Neurontin) 100 mg PO BID [facility] Last Admin: 02/23/19 09:46 Dose: 100 mg Guaifenesin/Dextromethorphan (Robitussin Dm) 10 ml PO Q4H PRN PRN Reason: Cough Last Admin: 02/23/19 05:23 Dose: 10 ml Ceftriaxone Sodium 1 gm/ (Sodium Chloride) 50 mls @ 100 mls/hr IV Q24H [facility] Last Admin: 02/23/19 14:04 Dose: 100 mls/hr Magnesium Hydroxide (Milk Of Magnesia) 30 ml PO Q12H PRN PRN Reason: Constipation Methylprednisolone (Medrol) 8 mg PO DAILY [facility] Ondansetron HCl (Zofran Odt) 4 mg PO Q6H PRN PRN Reason: Nausea able to take PO Last Admin: 02/22/19 21:07 Dose: 4 mg Pantoprazole Sodium (Protonix) 40 mg PO ACBREAKFAST [facility] Last Admin: 02/23/19 09:46 Dose: 40 mg Polyethylene Glycol (Miralax) 17 gm PO DAILY PRN PRN Reason: Constipation Potassium Chloride (Klor-Con M20) 20 meq PO TIDMEALS [facility] Last Admin: 02/23/19 14:03 Dose: 20 meq Prednisolone Acetate (Pred Forte 1% Ophth Susp) 0 ml EYELF BID [facility] Last Admin: 02/23/19 09:40 Dose: 1 drop Rosuvastatin Calcium (Crestor) 5 mg PO BEDTIME [facility] Last Admin: 02/22/19 20:03 Dose: 5 mg Senna/Docusate Sodium (Senna Plus) 1 tab PO BID PRN PRN Reason: Constipation Warfarin Sodium (Coumadin) 5 mg PO DAILY@1300 [facility] Last Admin: 02/23/19 14:04 Dose: 5 mg Discontinued Medications Albuterol (Proventil Neb Soln) 2.5 mg NEB ONETIME ONE Stop: 02/22/19 10:50 Last Admin: 02/22/19 10:56 Dose: 2.5 mg Amlodipine Besylate (Norvasc) 10 mg PO BEDTIME [facility] Last Admin: 02/22/19 20:01 Dose: 10 mg Azithromycin (Zithromax) 500 mg PO ONETIME ONE Stop: 02/22/19 13:06 Last Admin: 02/22/19 15:01 Dose: 500 mg Benzonatate (Tessalon Perles) 200 mg PO ONETIME ONE Stop: 02/22/19 12:11 Last Admin: 02/22/19 14:59 Dose: 200 mg Ceftriaxone Sodium 1 gm/ (Sodium Chloride) 50 mls @ 100 mls/hr IV Q24H [facility] Last Admin: 02/22/19 15:00 Dose: 100 mls/hr Sodium Chloride (Normal Saline) 1,000 mls @ 125 mls/hr IV ASDIRECTED [facility] Stop: 02/22/19 23:22 Last Admin: 02/22/19 16:12 Dose: 125 mls/hr Sodium Chloride (Normal Saline) 1,000 mls @ 999 mls/hr IV .BOLUS ONE Stop: 02/23/19 08:50 Last Admin: 02/23/19 08:04 Dose: 999 mls/hr Potassium Chloride 20 meq/Lidocaine HCl 2 ml/ Sodium Chloride 112 mls @ 56 mls/ hr IV Q2H [facility] Stop: 02/23/19 13:59 Last Admin: 02/23/19 15:22 Dose: 56 mls/hr Methylprednisolone (Medrol) 8 mg PO DAILY [facility] Last Admin: 02/23/19 09:45 Dose: 8 mg Potassium Chloride (Klor-Con M20) 20 meq PO ONETIME ONE Stop: 02/22/19 12:18 Last Admin: 02/22/19 14:58 Dose: 20 meq Potassium Chloride (Klor-Con M20) 40 meq PO ONETIME ONE Stop: 02/23/19 09:16 Last Admin: 02/23/19 09:38 Dose: 40 meq Warfarin Sodium (Coumadin) 5 mg PO ONETIME ONE Stop: 02/22/19 15:22 Last Admin: 02/22/19 16:16 Dose: 5 mg - Exam Quality Assessment: Supplemental Oxygen, DVT Prophylaxis General: Alert, Oriented, Cooperative, Mild Distress Lungs: Clear to Auscultation, Normal Respiratory Effort, Decreased Breath Sounds Cardiovascular: Regular Rate, Regular Rhythm, No Murmurs GI/Abdominal Exam: Soft, Non-Tender, No Organomegaly, No Distention Extremities: Non-Tender, Pedal Edema - Problem List Review Problem List Initiated/Reviewed/Updated: Yes - My Orders Last 24 Hours: My Active Orders 02/24/19 05:00 BASIC METABOLIC PANEL,BMP [CHEM] Timed CBC WITH AUTO DIFF [HEME] Timed INR,PT,PROTHROMBIN TIME [COAG] Timed MAGNESIUM [CHEM] Timed 02/24/19 09:00 methylPREDNISolone [Medrol] 8 mg PO DAILY - Plan Plan:: ASSESSMENT AND PLAN - Acute bronchitis - complicated by acute respiratory failure with hypoxia. Could be viral or bacterial. Planning to empirically cover with antibiotics given the hypoxic respiratory failure and leukocytosis. She has had fevers at the care home. Improved since admission with less shortness of breath and cough -Ceftriaxone and azithromycin -Supplement oxygen -Scheduled and as needed nebulizers -Symptomatically management of cough Acute cystitis without hematuria - urine sample from last night (different ED encounter)suggestive of infection. Culture growing a gram-negative rods with identification pending. -Ceftriaxone -Follow-up cultures Acute kidney injury - creatinine up more than 50% from baseline. Likely related to acute infections. Modest improvement in creatinine from admission -Repeat labs in the morning Transient hypotension -Hold amlodipine Hypokalemia - history of chronic hypokalemia. -IV and oral potassium replacement -Recheck potassium in a.m. Left leg DVT-previous history of DVT and PE. -Continue anticoagulation with Lovenox apparent and warfarin -Recheck INR in a.m. Rheumatoid arthritis - symptoms are stable at this time. -Continue home medications Maintenance issues - - DVT prophylaxis - CHELA stockings - GI prophylaxis - PPI - Nutrition - low sodium - Hagan catheter - not indicated CODE STATUS - full code Admission justification - This patient will be admitted for inpatient services and is medically appropriate meeting medical necessity for inpatient admission as outlined in my documentation. I reasonably expect the patient will require inpatient services that span a period time over 2 midnights. I reasonably expect this patient to be discharged or transferred within 96 hours [facility] Disposition - I would anticipate discharge back to the care home after the hospital stay Primary care physician - Dr. Delarosa
[2019-02-23] MEDS: Enoxaparin 80 MG/0.8 ML Syringe SUBCUT SCH (16:53)
[2019-02-23] MEDS: Benzonatate 100 MG Cap PO PRN (18:25)
[2019-02-23] MEDS: Rosuvastatin 10 MG Tab PO SCH (20:39)
[2019-02-24] MEDS: Albuterol/Ipratropium 3.0-0.5 MG/3 ML Neb Soln NEB SCH ×4 (07:24→20:16)
[2019-02-24] MEDS: Pantoprazole 40 MG Tab.CR PO SCH (08:29)
[2019-02-24] MEDS: Potassium Chloride 20 MEQ Tab.ER PO SCH ×2 (08:30→11:25)
[2019-02-24] MEDS: Citalopram 10 MG Tab PO SCH (08:30)
[2019-02-24] MEDS: Azithromycin 250 MG Tab PO SCH (08:31)
[2019-02-24] MEDS: Gabapentin 100 MG Cap PO SCH ×2 (08:31→20:16)
[2019-02-24] MEDS: Cyanocobalamin (Vitamin B12) 1,000 MCG Tab PO SCH (08:31)
[2019-02-24] MEDS: Atropine Sulfate Ophth 2 ML Drops OP SCH (08:32)
[2019-02-24] MEDS: prednisoLONE Acetate 1% Ophth Susp 5 ML Bottle EYELF SCH ×2 (08:32→20:17)
[2019-02-24] MEDS: Benzonatate 100 MG Cap PO PRN (09:48)
[2019-02-24] MEDS: guaiFENesin/Dextromethorphan 100-10 MG/5 ML Soln 10 ML Cup PO PRN ×2 (09:48→23:25)
[2019-02-24] MEDS ORDERED: Warfarin 2.5 MG Tab PO SCH (13:00)
[2019-02-24] MEDS: cefTRIAXone 1 GM in Sodium Chloride 0.9% 50 ML IV SCH (13:38)
--- NOTE | 2019-02-24 15:01 | PCM.PN ---
- General Info Date of Service: 02/24/19 Subjective Update: Ms. Bravo has improved since yesterday, less shortness of breath and cough. Potassium mildly elevated today after potassium replacement yesterday. Functional Status: Reports: Tolerating Diet, Ambulating, Urinating - Review of Systems General: Reports: Weakness. Denies: Fever, Chills Pulmonary: Reports: Shortness of Breath, Cough. Denies: Pleuritic Chest Pain, Hemoptysis, Wheezing Cardiovascular: Reports: Dyspnea on Exertion. Denies: Chest Pain, Palpitations , Orthopnea, PND, Edema, Lightheadedness Gastrointestinal: Reports: No Symptoms - Patient Data Vitals - Most Recent: Last Vital Signs Temp 98.9 F 02/24/19 10:54 Pulse 94 02/24/19 14:42 Resp 16 02/24/19 10:54 BP 151/54 H 02/24/19 10:54 Pulse Ox 93 L 02/24/19 14:42 Weight - Most Recent: 168 lb 15.996 oz Lab Results Last 24 Hours: Laboratory Results - last 24 hr 02/24/19 02/24/19 02/24/19 Range/Units 04:40 04:40 04:40 WBC 9.7 (4.5-11.0) K/uL RBC 3.39 (3.30-5.50) M/uL Hgb 9.7 L (12.0-15.0) g/dL Hct 32.8 L (36.0-48.0) % MCV 97 (80-98) fL MCH 29 (27-31) pg MCHC 30 L (32-36) % Plt Count 178 (150-400) K/uL Neut % (Auto) 83 H (36-66) % Lymph % (Auto) 11 L (24-44) % Brown % (Auto) 6 (2-6) % Eos % (Auto) 1 L (2-4) % Baso % (Auto) 0 (0-1) % PT 22.1 H (9.5-12.0) sec INR 2.09 H (0.80-1.20) Sodium 142 (140-148) mmol/L Potassium 5.4 H (3.6-5.2) mmol/L Chloride 108 (100-108) mmol/L Carbon Dioxide 30 (21-32) mmol/L Anion Gap 9.4 (5.0-14.0) mmol/L BUN 23 H (7-18) mg/dL Creatinine 1.1 H (0.6-1.0) mg/dL Est Cr Clr Drug Dosing 29.30 mL/min Estimated GFR (MDRD) 48 L (>60) Glucose 104 (74-106) mg/dL Calcium 8.2 L (8.5-10.1) mg/dL Magnesium 1.9 (1.8-2.4) mg/dL Med Orders - Current: Current Medications Acetaminophen (Tylenol) 650 mg PO Q4H PRN PRN Reason: Pain (Mild 1-3)/fever Last Admin: 02/23/19 05:07 Dose: 650 mg Albuterol (Proventil Neb Soln) 2.5 mg NEB Q4H PRN PRN Reason: Shortness Of Breath/wheezing Last Admin: 02/23/19 05:03 Dose: 2.5 mg Albuterol/Ipratropium (Duoneb 3.0-0.5 Mg/3 Ml) 3 ml NEB QIDRT [facility] Last Admin: 02/24/19 14:42 Dose: 3 ml Atropine Sulfate (Atropine 1%) 0 ml OP DAILY [facility] Last Admin: 02/24/19 08:32 Dose: 1 drop Azithromycin (Zithromax) 500 mg PO DAILY [facility] Last Admin: 02/24/19 08:31 Dose: 500 mg Benzonatate (Tessalon Perles) 100 mg PO TID PRN PRN Reason: Cough Last Admin: 02/24/19 09:48 Dose: 100 mg Citalopram Hydrobromide (Celexa) 10 mg PO DAILY [facility] Last Admin: 02/24/19 08:30 Dose: 10 mg Cyanocobalamin (Vitamin B12) 1,000 mcg PO DAILY [facility] Last Admin: 02/24/19 08:31 Dose: 1,000 mcg Enoxaparin Sodium (Lovenox) 80 mg 1 mg/kg (75 mg) SUBCUT DAILY@1600 [facility] Last Admin: 02/23/19 16:53 Dose: 80 mg Gabapentin (Neurontin) 100 mg PO BID [facility] Last Admin: 02/24/19 08:31 Dose: 100 mg Guaifenesin/Dextromethorphan (Robitussin Dm) 10 ml PO Q4H PRN PRN Reason: Cough Last Admin: 02/24/19 09:48 Dose: 10 ml Ceftriaxone Sodium 1 gm/ (Sodium Chloride) 50 mls @ 100 mls/hr IV Q24H [facility] Last Admin: 02/24/19 13:38 Dose: 100 mls/hr Magnesium Hydroxide (Milk Of Magnesia) 30 ml PO Q12H PRN PRN Reason: Constipation Methylprednisolone (Medrol) 8 mg PO DAILY [facility] Last Admin: 02/24/19 08:30 Dose: 8 mg Ondansetron HCl (Zofran Odt) 4 mg PO Q6H PRN PRN Reason: Nausea able to take PO Last Admin: 02/22/19 21:07 Dose: 4 mg Pantoprazole Sodium (Protonix) 40 mg PO ACBREAKFAST [facility] Last Admin: 02/24/19 08:29 Dose: 40 mg Polyethylene Glycol (Miralax) 17 gm PO DAILY PRN PRN Reason: Constipation Prednisolone Acetate (Pred Forte 1% Ophth Susp) 0 ml EYELF BID [facility] Last Admin: 02/24/19 08:32 Dose: 1 drop Rosuvastatin Calcium (Crestor) 5 mg PO BEDTIME [facility] Last Admin: 02/23/19 20:39 Dose: 5 mg Senna/Docusate Sodium (Senna Plus) 1 tab PO BID PRN PRN Reason: Constipation Warfarin Sodium (Coumadin) 2.5 mg PO DAILY@1300 [facility] Last Admin: 02/24/19 13:37 Dose: 2.5 mg Discontinued Medications Albuterol (Proventil Neb Soln) 2.5 mg NEB ONETIME ONE Stop: 02/22/19 10:50 Last Admin: 02/22/19 10:56 Dose: 2.5 mg Amlodipine Besylate (Norvasc) 10 mg PO BEDTIME [facility] Last Admin: 02/22/19 20:01 Dose: 10 mg Azithromycin (Zithromax) 500 mg PO ONETIME ONE Stop: 02/22/19 13:06 Last Admin: 02/22/19 15:01 Dose: 500 mg Benzonatate (Tessalon Perles) 200 mg PO ONETIME ONE Stop: 02/22/19 12:11 Last Admin: 02/22/19 14:59 Dose: 200 mg Ceftriaxone Sodium 1 gm/ (Sodium Chloride) 50 mls @ 100 mls/hr IV Q24H [facility] Last Admin: 02/22/19 15:00 Dose: 100 mls/hr Sodium Chloride (Normal Saline) 1,000 mls @ 125 mls/hr IV ASDIRECTED [facility] Stop: 02/22/19 23:22 Last Admin: 02/22/19 16:12 Dose: 125 mls/hr Sodium Chloride (Normal Saline) 1,000 mls @ 999 mls/hr IV .BOLUS ONE Stop: 02/23/19 08:50 Last Admin: 02/23/19 08:04 Dose: 999 mls/hr Potassium Chloride 20 meq/Lidocaine HCl 2 ml/ Sodium Chloride 112 mls @ 56 mls/ hr IV Q2H [facility] Stop: 02/23/19 13:59 Last Admin: 02/23/19 15:22 Dose: 56 mls/hr Methylprednisolone (Medrol) 8 mg PO DAILY [facility] Last Admin: 02/23/19 09:45 Dose: 8 mg Potassium Chloride (Klor-Con M20) 20 meq PO ONETIME ONE Stop: 02/22/19 12:18 Last Admin: 02/22/19 14:58 Dose: 20 meq Potassium Chloride (Klor-Con M20) 20 meq PO TIDMEALS [facility] Last Admin: 02/24/19 11:25 Dose: 20 meq Potassium Chloride (Klor-Con M20) 40 meq PO ONETIME ONE Stop: 02/23/19 09:16 Last Admin: 02/23/19 09:38 Dose: 40 meq Warfarin Sodium (Coumadin) 5 mg PO DAILY@1300 [facility] Last Admin: 02/23/19 14:04 Dose: 5 mg Warfarin Sodium (Coumadin) 5 mg PO ONETIME ONE Stop: 02/22/19 15:22 Last Admin: 02/22/19 16:16 Dose: 5 mg - Exam Quality Assessment: Supplemental Oxygen, DVT Prophylaxis General: Alert, Oriented, Cooperative, Mild Distress Lungs: Clear to Auscultation, Normal Respiratory Effort, Decreased Breath Sounds. No: Rales, Rhonchi, Rub, Wheezing Cardiovascular: Regular Rate, Regular Rhythm, Murmurs GI/Abdominal Exam: Soft, Non-Tender, No Organomegaly, No Distention Extremities: Non-Tender, No Pedal Edema - Problem List Review Problem List Initiated/Reviewed/Updated: Yes - My Orders Last 24 Hours: My Active Orders 02/24/19 09:00 methylPREDNISolone [Medrol] 8 mg PO DAILY 02/24/19 13:00 Warfarin [Coumadin] 2.5 mg PO DAILY@1300 02/24/19 17:00 POTASSIUM,K [CHEM] Stat 02/25/19 05:00 BASIC METABOLIC PANEL,BMP [CHEM] Timed 02/25/19 05:11 INR,PT,PROTHROMBIN TIME [COAG] AM - Plan Plan:: ASSESSMENT AND PLAN - Acute bronchitis - improved from admission with left shortness of breath and cough -Discontinue IV ceftriaxone and oral azithromycin -Levofloxacin by mouth daily -Supplement oxygen -Scheduled and as needed nebulizers -Symptomatically management of cough Acute cystitis without hematuria - urine sample from last night (different ED encounter)suggestive of infection. Urine culture from previous ED visit, growing pansensitive Escherichia coli -Levofloxacin as above Acute kidney injury - renal function stable -Repeat labs in the morning Transient hypotension -Hold amlodipine Hypokalemia -potassium level modestly elevated today -Old oral potassium replacement -Recheck potassium this afternoon and in a.m. 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 Rheumatoid arthritis - symptoms are stable at this time. -Continue home medications Maintenance issues - - DVT prophylaxis - CHELA stockings - GI prophylaxis - PPI - Nutrition - low sodium - Hagan catheter - not indicated CODE STATUS - full code Admission justification - This patient will be admitted for inpatient services and is medically appropriate meeting medical necessity for inpatient admission as outlined in my documentation. I reasonably expect the patient will require inpatient services that span a period time over 2 midnights. I reasonably expect this patient to be discharged or transferred within 96 hours [facility]. Disposition - I would anticipate discharge back to the long term after the hospital stay Primary care physician - Dr. Delarosa
[2019-02-24] MEDS ORDERED: Levofloxacin 500 MG Tab PO SCH (15:15)
[2019-02-24] MEDS: Lactobacillus Rhamnosus GG (Probiotic) Cap PO SCH ×2 (15:39→20:16)
[2019-02-24] MEDS: Enoxaparin 80 MG/0.8 ML Syringe SUBCUT SCH (15:40)
[2019-02-24] MEDS ORDERED: Levofloxacin 500 MG Tab PO ONE (16:00)
[2019-02-24] MEDS: Rosuvastatin 10 MG Tab PO SCH (20:16)
[2019-02-24] MEDS: Albuterol 0.083% 2.5 MG/3 ML Neb Soln NEB PRN (21:56)
[2019-02-25] MEDS: Benzonatate 100 MG Cap PO PRN (01:04)
[2019-02-25] MEDS: Albuterol 0.083% 2.5 MG/3 ML Neb Soln NEB PRN ×2 (04:42→16:48)
[2019-02-25] MEDS ORDERED: Phytonadione 1 MG in Sodium Chloride 0.9% 50 ML IV ONE (06:26)
[2019-02-25] MEDS: guaiFENesin/Dextromethorphan 100-10 MG/5 ML Soln 10 ML Cup PO PRN ×2 (07:13→21:06)
[2019-02-25] MEDS: Pantoprazole 40 MG Tab.CR PO SCH (07:15)
[2019-02-25] MEDS: Albuterol/Ipratropium 3.0-0.5 MG/3 ML Neb Soln NEB SCH ×4 (07:25→20:11)
[2019-02-25] MEDS: Atropine Sulfate Ophth 2 ML Drops OP SCH (08:52)
[2019-02-25] MEDS: Gabapentin 100 MG Cap PO SCH ×2 (08:53→20:06)
[2019-02-25] MEDS: Lactobacillus Rhamnosus GG (Probiotic) Cap PO SCH ×2 (08:53→20:05)
[2019-02-25] MEDS: prednisoLONE Acetate 1% Ophth Susp 5 ML Bottle EYELF SCH ×2 (08:53→20:06)
[2019-02-25] MEDS: Cyanocobalamin (Vitamin B12) 1,000 MCG Tab PO SCH (08:53)
[2019-02-25] MEDS: Citalopram 10 MG Tab PO SCH (08:54)
--- NOTE | 2019-02-25 12:45 | PCM.PN ---
- General Info Date of Service: 02/25/19 Subjective Update: Ms. Gonzalez has been stable from a respiratory standpoint but reports significant soreness of her mouth and throat over the last 24 hours. Exam shows evidence of thrush, oral intake has been fairly poor. Cough seems to be slowly improved and she reports less shortness of breath. Functional Status: Reports: Ambulating, Urinating. Denies: Tolerating Diet - Review of Systems General: Reports: Weakness. Denies: Fever, Chills Pulmonary: Reports: Shortness of Breath, Cough. Denies: Pleuritic Chest Pain, Sputum, Hemoptysis, Wheezing Cardiovascular: Reports: Dyspnea on Exertion. Denies: Chest Pain, Palpitations , Orthopnea, PND, Edema Gastrointestinal: Reports: No Symptoms - Patient Data Vitals - Most Recent: Last Vital Signs Temp 100.2 F 02/25/19 11:00 Pulse 105 H 02/25/19 11:00 Resp 21 H 02/25/19 11:00 BP 154/75 H 02/25/19 11:00 Pulse Ox 86 L 02/25/19 11:00 Weight - Most Recent: 168 lb 15.996 oz I&O - Last 24 Hours: Intake & Output 02/24/19 02/25/19 02/25/19 22:59 06:59 14:59 Intake Total 300 300 50 Balance 300 300 50 Lab Results Last 24 Hours: Laboratory Results - last 24 hr 02/24/19 02/25/19 02/25/19 Range/Units 17:06 05:54 05:54 PT 50.4 H (9.5-12.0) sec INR 5.02 H* D (0.80-1.20) Sodium 140 (140-148) mmol/L Potassium 5.4 H 4.2 (3.6-5.2) mmol/L Chloride 104 (100-108) mmol/L Carbon Dioxide 28 (21-32) mmol/L Anion Gap 8.4 (5.0-14.0) mmol/L BUN 19 H (7-18) mg/dL Creatinine 0.9 (0.6-1.0) mg/dL Est Cr Clr Drug Dosing 35.81 mL/min Estimated GFR (MDRD) > 60 (>60) Glucose 91 (74-106) mg/dL Calcium 8.8 (8.5-10.1) mg/dL Med Orders - Current: Current Medications Acetaminophen (Tylenol) 650 mg PO Q4H PRN PRN Reason: Pain (Mild 1-3)/fever Last Admin: 02/23/19 05:07 Dose: 650 mg Albuterol (Proventil Neb Soln) 2.5 mg NEB Q4H PRN PRN Reason: Shortness Of Breath/wheezing Last Admin: 02/25/19 04:42 Dose: 2.5 mg Albuterol/Ipratropium (Duoneb 3.0-0.5 Mg/3 Ml) 3 ml NEB QIDRT [facility] Last Admin: 02/25/19 10:20 Dose: 3 ml Atropine Sulfate (Atropine 1%) 0 ml OP DAILY [facility] Last Admin: 02/25/19 08:52 Dose: 1 drop Benzonatate (Tessalon Perles) 100 mg PO TID PRN PRN Reason: Cough Last Admin: 02/25/19 01:04 Dose: 100 mg Citalopram Hydrobromide (Celexa) 10 mg PO DAILY [facility] Last Admin: 02/25/19 08:54 Dose: 10 mg Cyanocobalamin (Vitamin B12) 1,000 mcg PO DAILY [facility] Last Admin: 02/25/19 08:53 Dose: 1,000 mcg Enoxaparin Sodium (Lovenox) 80 mg 1 mg/kg (75 mg) SUBCUT DAILY@1600 [facility] Last Admin: 02/24/19 15:40 Dose: 80 mg Gabapentin (Neurontin) 100 mg PO BID [facility] Last Admin: 02/25/19 08:53 Dose: 100 mg Guaifenesin/Dextromethorphan (Robitussin Dm) 10 ml PO Q4H PRN PRN Reason: Cough Last Admin: 02/25/19 07:13 Dose: 10 ml Lactobacillus Rhamnosus (Culturelle) 1 cap PO BID [facility] Last Admin: 02/25/19 08:53 Dose: 1 cap Levofloxacin (Levaquin) 250 mg PO Q24H [facility] Magnesium Hydroxide (Milk Of Magnesia) 30 ml PO Q12H PRN PRN Reason: Constipation Methylprednisolone (Medrol) 8 mg PO DAILY [facility] Last Admin: 02/25/19 08:56 Dose: 8 mg Ondansetron HCl (Zofran Odt) 4 mg PO Q6H PRN PRN Reason: Nausea able to take PO Last Admin: 02/22/19 21:07 Dose: 4 mg Pantoprazole Sodium (Protonix) 40 mg PO ACBREAKFAST [facility] Last Admin: 02/25/19 07:15 Dose: 40 mg Polyethylene Glycol (Miralax) 17 gm PO DAILY PRN PRN Reason: Constipation Prednisolone Acetate (Pred Forte 1% Ophth Susp) 0 ml EYELF BID [facility] Last Admin: 02/25/19 08:53 Dose: 1 drop Rosuvastatin Calcium (Crestor) 5 mg PO BEDTIME [facility] Last Admin: 02/24/19 20:16 Dose: 5 mg Senna/Docusate Sodium (Senna Plus) 1 tab PO BID PRN PRN Reason: Constipation Discontinued Medications Albuterol (Proventil Neb Soln) 2.5 mg NEB ONETIME ONE Stop: 02/22/19 10:50 Last Admin: 02/22/19 10:56 Dose: 2.5 mg Amlodipine Besylate (Norvasc) 10 mg PO BEDTIME [facility] Last Admin: 02/22/19 20:01 Dose: 10 mg Azithromycin (Zithromax) 500 mg PO ONETIME ONE Stop: 02/22/19 13:06 Last Admin: 02/22/19 15:01 Dose: 500 mg Azithromycin (Zithromax) 500 mg PO DAILY [facility] Last Admin: 02/24/19 08:31 Dose: 500 mg Benzonatate (Tessalon Perles) 200 mg PO ONETIME ONE Stop: 02/22/19 12:11 Last Admin: 02/22/19 14:59 Dose: 200 mg Ceftriaxone Sodium 1 gm/ (Sodium Chloride) 50 mls @ 100 mls/hr IV Q24H [facility] Last Admin: 02/22/19 15:00 Dose: 100 mls/hr Ceftriaxone Sodium 1 gm/ (Sodium Chloride) 50 mls @ 100 mls/hr IV Q24H [facility] Last Admin: 02/24/19 13:38 Dose: 100 mls/hr Sodium Chloride (Normal Saline) 1,000 mls @ 125 mls/hr IV ASDIRECTED [facility] Stop: 02/22/19 23:22 Last Admin: 02/22/19 16:12 Dose: 125 mls/hr Sodium Chloride (Normal Saline) 1,000 mls @ 999 mls/hr IV .BOLUS ONE Stop: 02/23/19 08:50 Last Admin: 02/23/19 08:04 Dose: 999 mls/hr Potassium Chloride 20 meq/Lidocaine HCl 2 ml/ Sodium Chloride 112 mls @ 56 mls/ hr IV Q2H [facility] Stop: 02/23/19 13:59 Last Admin: 02/23/19 15:22 Dose: 56 mls/hr Phytonadione 1 mg/ Sodium (Chloride) 50.5 mls @ 100 mls/hr IV ONETIME ONE Stop: 02/25/19 06:56 Last Admin: 02/25/19 07:37 Dose: 100 mls/hr Levofloxacin (Levaquin) 500 mg PO ONETIME ONE Stop: 02/24/19 16:01 Last Admin: 02/24/19 15:39 Dose: 500 mg Methylprednisolone (Medrol) 8 mg PO DAILY [facility] Last Admin: 02/23/19 09:45 Dose: 8 mg Potassium Chloride (Klor-Con M20) 20 meq PO ONETIME ONE Stop: 02/22/19 12:18 Last Admin: 02/22/19 14:58 Dose: 20 meq Potassium Chloride (Klor-Con M20) 20 meq PO TIDMEALS [facility] Last Admin: 02/24/19 11:25 Dose: 20 meq Potassium Chloride (Klor-Con M20) 40 meq PO ONETIME ONE Stop: 02/23/19 09:16 Last Admin: 02/23/19 09:38 Dose: 40 meq Warfarin Sodium (Coumadin) 5 mg PO DAILY@1300 [facility] Last Admin: 02/23/19 14:04 Dose: 5 mg Warfarin Sodium (Coumadin) 5 mg PO ONETIME ONE Stop: 02/22/19 15:22 Last Admin: 02/22/19 16:16 Dose: 5 mg Warfarin Sodium (Coumadin) 2.5 mg PO DAILY@1300 [facility] Last Admin: 02/24/19 13:37 Dose: 2.5 mg - Exam Quality Assessment: Supplemental Oxygen, DVT Prophylaxis General: Alert, Oriented, Cooperative, Mild Distress Lungs: Clear to Auscultation, Normal Respiratory Effort Cardiovascular: Regular Rate, Regular Rhythm, No Murmurs GI/Abdominal Exam: Soft, Non-Tender, No Organomegaly, No Distention Extremities: Non-Tender, No Pedal Edema - Problem List Review Problem List Initiated/Reviewed/Updated: Yes - My Orders Last 24 Hours: My Active Orders 02/24/19 15:15 Lactobacillus Rhamnosus GG [Culturelle] 1 cap PO BID 02/24/19 22:15 Overnight Pulse Oximetry [RC] Click to Edit 02/25/19 00:28 Pulse Oximetry Continuous Monitoring [OM.PC] Routine 02/25/19 16:00 levoFLOXacin [Levaquin] 250 mg PO Q24H 02/26/19 05:00 INR,PT,PROTHROMBIN TIME [COAG] Timed - Plan Plan:: ASSESSMENT AND PLAN - Acute bronchitis - improved from admission with left shortness of breath and cough -Discontinue IV ceftriaxone and oral azithromycin -Levofloxacin by mouth daily -Supplement oxygen -Scheduled and as needed nebulizers -Symptomatically management of cough Thrush-very symptomatic with sore mouth and throat -Mycelex Jia 5 times daily Acute cystitis without hematuria - urine sample from last night (different ED encounter)suggestive of infection. Urine culture from previous ED visit, growing pansensitive Escherichia coli -Levofloxacin as above Acute kidney injury - renal function stable -Repeat labs in the morning Transient hypotension -Hold amlodipine Hypokalemia -potassium level modestly elevated today -Old oral potassium replacement -Recheck potassium this afternoon and in a.m. 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 Rheumatoid arthritis - symptoms are stable at this time. -Continue home medications Maintenance issues - - DVT prophylaxis - CHELA stockings - GI prophylaxis - PPI - Nutrition - low sodium - Hagan catheter - not indicated CODE STATUS - full code Admission justification - This patient will be admitted for inpatient services and is medically appropriate meeting medical necessity for inpatient admission as outlined in my documentation. I reasonably expect the patient will require inpatient services that span a period time over 2 midnights. I reasonably expect this patient to be discharged or transferred within 96 hours [facility] Disposition - I would anticipate discharge back to the half-way after the hospital stay Primary care physician - Dr. Delarosa
[2019-02-25] MEDS: Clotrimazole 10 MG Troche PO SCH ×3 (14:30→21:06)
[2019-02-25] MEDS ORDERED: Levofloxacin 250 MG Tab PO SCH (16:00)
[2019-02-25] MEDS: Enoxaparin 80 MG/0.8 ML Syringe SUBCUT SCH (16:05)
[2019-02-25] MEDS: Acetaminophen 325 MG Tab PO PRN (17:03)
[2019-02-25] MEDS: Rosuvastatin 10 MG Tab PO SCH (20:06)
[2019-02-26] MEDS: Albuterol 0.083% 2.5 MG/3 ML Neb Soln NEB PRN ×2 (00:33→04:34)
[2019-02-26] MEDS: Clotrimazole 10 MG Troche PO SCH ×5 (06:00→22:03)
[2019-02-26] MEDS: Albuterol/Ipratropium 3.0-0.5 MG/3 ML Neb Soln NEB SCH ×4 (07:11→20:36)
[2019-02-26] MEDS ORDERED: Furosemide 40 MG/4 ML VIAL IVPUSH ONE ×2 (08:10→17:00)
[2019-02-26] MEDS: Pantoprazole 40 MG Tab.CR PO SCH (09:03)
[2019-02-26] MEDS: Citalopram 10 MG Tab PO SCH (09:04)
[2019-02-26] MEDS: Lactobacillus Rhamnosus GG (Probiotic) Cap PO SCH ×2 (09:04→20:36)
[2019-02-26] MEDS: Gabapentin 100 MG Cap PO SCH ×2 (09:05→20:36)
[2019-02-26] MEDS: prednisoLONE Acetate 1% Ophth Susp 5 ML Bottle EYELF SCH ×2 (09:05→20:36)
[2019-02-26] MEDS: Cyanocobalamin (Vitamin B12) 1,000 MCG Tab PO SCH (09:05)
[2019-02-26] MEDS: Atropine Sulfate Ophth 2 ML Drops OP SCH (09:06)
--- NOTE | 2019-02-26 09:09 | CRLCR ---
INDICATION: Hypoxia; shortness of breath. COMPARISON: Chest radiograph January 05, 2019, February 21, 2019 and February 22, 2019. TECHNIQUE: Two-view chest. FINDINGS: Stable cardiomegaly. Progressive pulmonary infiltrates both upper lobes. Evidence of mild pulmonary congestion. No evidence of pneumothorax or pleural effusion. IMPRESSION: 1. Progressive bilateral upper lobe pulmonary infiltrates. 2. Mild pulmonary congestion. 3. Stable cardiomegaly. Dictated by Gregory Keane MD @ Feb 26 2019 9:03AM Signed by Dr. Gregory Keane @ Feb 26 2019 9:06AM
[2019-02-26] MEDS: Acetaminophen 325 MG Tab PO PRN (11:20)
--- NOTE | 2019-02-26 12:43 | PCM.PN ---
- General Info Date of Service: 02/26/19 Subjective Update: Ms. Gonzalez is unfortunately developed increased shortness of breath through the night with progressive hypoxia. Blood gases showed borderline CO2 retention but adequate oxygenation. Chest x-ray was repeated and shows bilateral pulmonary infiltrates that had worsened from admission. I suspect worsening secondary to initial IV fluids, but infiltrates were present on admission based on comparison of this x-ray to admission x-ray. There also appears to be some colon polyps of pulmonary edema, likely secondary to mobilization of fluids received during the first few days hospitalization. She has improved with IV diuretic therapy given earlier this morning. Functional Status: Reports: Tolerating Diet, Urinating - Review of Systems General: Reports: Weakness. Denies: Fever, Chills Pulmonary: Reports: Shortness of Breath, Cough. Denies: Pleuritic Chest Pain, Sputum, Hemoptysis, Wheezing Cardiovascular: Reports: Dyspnea on Exertion, Edema. Denies: Chest Pain, Palpitations, Orthopnea, PND Gastrointestinal: Reports: No Symptoms - Patient Data Vitals - Most Recent: Last Vital Signs Temp 99.8 F 02/26/19 11:50 Pulse 100 02/26/19 11:00 Resp 22 H 02/26/19 11:00 BP 134/59 L 02/26/19 11:00 Pulse Ox 85 L 02/26/19 12:21 Weight - Most Recent: 168 lb 15.996 oz I&O - Last 24 Hours: Intake & Output 02/25/19 02/26/19 02/26/19 22:59 06:59 14:59 Intake Total 311 300 Balance 311 300 Lab Results Last 24 Hours: Laboratory Results - last 24 hr 02/26/19 02/26/19 Range/Units 04:30 07:55 PT 20.0 H (9.5-12.0) sec INR 1.88 H D (0.80-1.20) Puncture Site Rt radial ABG pH 7.449 (7.350-7.450) ABG pCO2 45.5 H (35.0-42.0) mmHg ABG pO2 87.5 (75.0-100.0) mmHg ABG HCO3 31.0 H (22.0-26.0) mmol/L ABG Total CO2 28.3 H (21.0-25.0) mmol/L ABG O2 Saturation 96.9 (95.0-98.0) % ABG O2 Content 14.3 L (15.0-23.0) %vol ABG Base Excess 6.6 mm/L ABG Hemoglobin 10.6 L (12.0-16.0) g/dL ABG Oxyhemoglobin 95.0 % ABG Carboxyhemoglobin 1.0 (0.0-1.6) % ABG Methemoglobin 1.0 % Toy Test Passed O2 Delivery Device Nasal cannula Oxygen Flow Rate L Med Orders - Current: Current Medications Acetaminophen (Tylenol) 650 mg PO Q4H PRN PRN Reason: Pain (Mild 1-3)/fever Last Admin: 02/26/19 11:20 Dose: 650 mg Albuterol (Proventil Neb Soln) 2.5 mg NEB Q4H PRN PRN Reason: Shortness Of Breath/wheezing Last Admin: 02/26/19 04:34 Dose: 2.5 mg Albuterol/Ipratropium (Duoneb 3.0-0.5 Mg/3 Ml) 3 ml NEB QIDRT [facility] [place] Last Admin: 02/26/19 10:47 Dose: 3 ml Atropine Sulfate (Atropine 1%) 0 ml OP DAILY [facility] [place] Last Admin: 02/26/19 09:06 Dose: 1 drop Benzonatate (Tessalon Perles) 100 mg PO TID PRN PRN Reason: Cough Last Admin: 02/25/19 01:04 Dose: 100 mg Citalopram Hydrobromide (Celexa) 10 mg PO DAILY [facility] [place] Last Admin: 02/26/19 09:04 Dose: 10 mg Clotrimazole (Mycelex) 10 mg PO 5XDAY [facility] [place] Last Admin: 02/26/19 11:26 Dose: 10 mg Cyanocobalamin (Vitamin B12) 1,000 mcg PO DAILY [facility] [place] Last Admin: 02/26/19 09:05 Dose: 1,000 mcg Enoxaparin Sodium (Lovenox) 80 mg 1 mg/kg (75 mg) SUBCUT DAILY@1600 [facility] [place] Last Admin: 02/25/19 16:05 Dose: 80 mg Gabapentin (Neurontin) 100 mg PO BID [facility] [place] Last Admin: 02/26/19 09:05 Dose: 100 mg Guaifenesin/Dextromethorphan (Robitussin Dm) 10 ml PO Q4H PRN PRN Reason: Cough Last Admin: 02/25/19 21:06 Dose: 10 ml Lactobacillus Rhamnosus (Culturelle) 1 cap PO BID [facility] [place] Last Admin: 02/26/19 09:04 Dose: 1 cap Levofloxacin (Levaquin) 750 mg PO Q48H [facility] [place] Magnesium Hydroxide (Milk Of Magnesia) 30 ml PO Q12H PRN PRN Reason: Constipation Methylprednisolone (Medrol) 8 mg PO DAILY [facility] [place] Last Admin: 02/26/19 12:35 Dose: 4 mg Ondansetron HCl (Zofran Odt) 4 mg PO Q6H PRN PRN Reason: Nausea able to take PO Last Admin: 02/22/19 21:07 Dose: 4 mg Pantoprazole Sodium (Protonix) 40 mg PO ACBREAKFAST [facility] [place] Last Admin: 02/26/19 09:03 Dose: 40 mg Polyethylene Glycol (Miralax) 17 gm PO DAILY PRN PRN Reason: Constipation Prednisolone Acetate (Pred Forte 1% Ophth Susp) 0 ml EYELF BID [facility] [place] Last Admin: 02/26/19 09:05 Dose: 1 drop Rosuvastatin Calcium (Crestor) 5 mg PO BEDTIME [facility] [place] Last Admin: 02/25/19 20:06 Dose: 5 mg Senna/Docusate Sodium (Senna Plus) 1 tab PO BID PRN PRN Reason: Constipation Warfarin Sodium (Coumadin) 1 mg PO DAILY@1300 [facility] [place] Discontinued Medications Albuterol (Proventil Neb Soln) 2.5 mg NEB ONETIME ONE Stop: 02/22/19 10:50 Last Admin: 02/22/19 10:56 Dose: 2.5 mg Amlodipine Besylate (Norvasc) 10 mg PO BEDTIME [facility] [place] Last Admin: 02/22/19 20:01 Dose: 10 mg Azithromycin (Zithromax) 500 mg PO ONETIME ONE Stop: 02/22/19 13:06 Last Admin: 02/22/19 15:01 Dose: 500 mg Azithromycin (Zithromax) 500 mg PO DAILY [facility] [place] Last Admin: 02/24/19 08:31 Dose: 500 mg Benzonatate (Tessalon Perles) 200 mg PO ONETIME ONE Stop: 02/22/19 12:11 Last Admin: 02/22/19 14:59 Dose: 200 mg Furosemide (Lasix) 40 mg IVPUSH STAT ONE Stop: 02/26/19 08:11 Last Admin: 02/26/19 08:16 Dose: 40 mg Ceftriaxone Sodium 1 gm/ (Sodium Chloride) 50 mls @ 100 mls/hr IV Q24H [facility] [place] Last Admin: 02/22/19 15:00 Dose: 100 mls/hr Ceftriaxone Sodium 1 gm/ (Sodium Chloride) 50 mls @ 100 mls/hr IV Q24H [facility] [place] Last Admin: 02/24/19 13:38 Dose: 100 mls/hr Sodium Chloride (Normal Saline) 1,000 mls @ 125 mls/hr IV ASDIRECTED [facility] Stop: 02/22/19 23:22 Last Admin: 02/22/19 16:12 Dose: 125 mls/hr Sodium Chloride (Normal Saline) 1,000 mls @ 999 mls/hr IV .BOLUS ONE Stop: 02/23/19 08:50 Last Admin: 02/23/19 08:04 Dose: 999 mls/hr Potassium Chloride 20 meq/Lidocaine HCl 2 ml/ Sodium Chloride 112 mls @ 56 mls/ hr IV Q2H [facility] [place] Stop: 02/23/19 13:59 Last Admin: 02/23/19 15:22 Dose: 56 mls/hr Phytonadione 1 mg/ Sodium (Chloride) 50.5 mls @ 100 mls/hr IV ONETIME ONE Stop: 02/25/19 06:56 Last Admin: 02/25/19 07:37 Dose: 100 mls/hr Levofloxacin (Levaquin) 500 mg PO ONETIME ONE Stop: 02/24/19 16:01 Last Admin: 02/24/19 15:39 Dose: 500 mg Levofloxacin (Levaquin) 250 mg PO Q24H [facility] [place] Last Admin: 02/25/19 16:06 Dose: 250 mg Methylprednisolone (Medrol) 8 mg PO DAILY [facility] [place] Last Admin: 02/23/19 09:45 Dose: 8 mg Potassium Chloride (Klor-Con M20) 20 meq PO ONETIME ONE Stop: 02/22/19 12:18 Last Admin: 02/22/19 14:58 Dose: 20 meq Potassium Chloride (Klor-Con M20) 20 meq PO TIDMEALS [facility] [place] Last Admin: 02/24/19 11:25 Dose: 20 meq Potassium Chloride (Klor-Con M20) 40 meq PO ONETIME ONE Stop: 02/23/19 09:16 Last Admin: 02/23/19 09:38 Dose: 40 meq Warfarin Sodium (Coumadin) 5 mg PO DAILY@1300 [facility] [place] Last Admin: 02/23/19 14:04 Dose: 5 mg Warfarin Sodium (Coumadin) 5 mg PO ONETIME ONE Stop: 02/22/19 15:22 Last Admin: 02/22/19 16:16 Dose: 5 mg Warfarin Sodium (Coumadin) 2.5 mg PO DAILY@1300 [facility] [place] Last Admin: 02/24/19 13:37 Dose: 2.5 mg - Exam Quality Assessment: DVT Prophylaxis General: Alert, Oriented, Cooperative, Moderate Distress Lungs: Decreased Breath Sounds, Crackles, Rhonchi. No: Rales, Rub, Wheezing Cardiovascular: Regular Rate, Regular Rhythm, No Murmurs GI/Abdominal Exam: Soft, Non-Tender, No Organomegaly, No Distention Extremities: Non-Tender, No Pedal Edema Skin: Warm, Dry, Intact - Problem List Review Problem List Initiated/Reviewed/Updated: Yes - My Orders Last 24 Hours: My Active Orders 02/25/19 14:00 Clotrimazole [Mycelex] 10 mg PO 5XDAY 02/26/19 13:00 Warfarin [Coumadin] 1 mg PO DAILY@1300 02/26/19 14:00 levoFLOXacin [Levaquin] 750 mg PO Q48H 02/27/19 05:00 BASIC METABOLIC PANEL,BMP [CHEM] Timed CBC WITH AUTO DIFF [HEME] Timed MAGNESIUM [CHEM] Timed 02/27/19 05:11 INR,PT,PROTHROMBIN TIME [COAG] AM - Plan Plan:: ASSESSMENT AND PLAN - Bilateral pneumonia -present on admission, increased shortness of breath and cough this morning, chest x-ray shows worsening infiltrates from admission and evidence of pulmonary edema -IV furosemide this afternoon, reassess in a.m. -Levofloxacin by mouth daily -Supplement oxygen -Scheduled and as needed nebulizers -Symptomatically management of cough Thrush-improved from yesterday with current management -Mycelex Jia 5 times daily Acute cystitis without hematuria - urine sample from last night (different ED encounter)suggestive of infection. Urine culture from previous ED visit, growing pansensitive Escherichia coli -Levofloxacin as above Acute kidney injury - renal function stable -Repeat labs in the morning Transient hypotension -Hold amlodipine Hypokalemia -Recheck potassium this afternoon and in a.m. 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 Rheumatoid arthritis - symptoms are stable at this time. -Continue home medications Maintenance issues - - DVT prophylaxis - CHELA stockings - GI prophylaxis - PPI - Nutrition - low sodium - Hagan catheter - not indicated CODE STATUS - full code Admission justification - This patient will be admitted for inpatient services and is medically appropriate meeting medical necessity for inpatient admission as outlined in my documentation. I reasonably expect the patient will require inpatient services that span a period time over 2 midnights. I reasonably expect this patient to be discharged or transferred within 96 hours after admission to the [facility]. Disposition - [facility] Primary care physician - Dr. Delarosa
[2019-02-26] MEDS ORDERED: Levofloxacin 250 MG Tab PO SCH (14:00)
[2019-02-26] MEDS: Enoxaparin 80 MG/0.8 ML Syringe SUBCUT SCH (16:09)
[2019-02-26] MEDS: Rosuvastatin 10 MG Tab PO SCH (20:36)
[2019-02-26] MEDS: guaiFENesin/Dextromethorphan 100-10 MG/5 ML Soln 10 ML Cup PO PRN (22:47)
[2019-02-27] MEDS: Benzonatate 100 MG Cap PO PRN (01:02)
[2019-02-27] MEDS: Clotrimazole 10 MG Troche PO SCH ×3 (05:58→15:40)
[2019-02-27] MEDS: Albuterol/Ipratropium 3.0-0.5 MG/3 ML Neb Soln NEB SCH ×3 (07:12→14:27)
[2019-02-27] MEDS: Pantoprazole 40 MG Tab.CR PO SCH (08:29)
[2019-02-27] MEDS: Lactobacillus Rhamnosus GG (Probiotic) Cap PO SCH (08:39)
[2019-02-27] MEDS: Citalopram 10 MG Tab PO SCH (08:39)
[2019-02-27] MEDS: Gabapentin 100 MG Cap PO SCH (08:41)
[2019-02-27] MEDS: Cyanocobalamin (Vitamin B12) 1,000 MCG Tab PO SCH (08:42)
[2019-02-27] MEDS: Atropine Sulfate Ophth 2 ML Drops OP SCH (08:42)
[2019-02-27] MEDS: prednisoLONE Acetate 1% Ophth Susp 5 ML Bottle EYELF SCH (08:42)
[2019-02-27] MEDS: Acetaminophen 325 MG Tab PO PRN (10:18)
[2019-02-27] MEDS ORDERED: methylPREDNISolone Sodium Succinate 40 MG/1 ML SDV IVPUSH ONE (11:33)
[2019-02-27] MEDS ORDERED: diphenhydrAMINE 50 MG/ML SDV IVPUSH ONE (11:33)
--- NOTE | 2019-02-27 13:53 | CRLCT ---
INDICATION: Hypoxia. COMPARISON: None available. Correlation is made with plain films dated 02/22/2018. TECHNIQUE: CTA of the chest, PE protocol. 64 cc of Isovue-370 injected intravenously. FINDINGS: There is no pulmonary artery embolism. Redemonstrated is lung volumes, with bilateral coarse opacities, on the CT demonstrated to consist of perihilar and peripheral ground-glass opacity predominantly in the mid to upper lobes as with these areas containing inter and intralobular septal thickening. No honeycombing. New small right pleural effusion. No pneumothorax. There is atherosclerotic change in the thoracic aorta without thoracic aortic aneurysm. No descending or transverse thoracic aortic dissection. Too much motion is seen in the ascending thoracic aorta to evaluate. 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 Diffuse hepatic steatosis. Coronary calcifications. No pericardial effusion. There are several mildly prominent mediastinal and bilateral hilar lymph nodes are nonspecific but most likely reactive. A vertebral compression fracture of a mid thoracic vertebral body that causes greater than 50 percent height loss, and this appears to be the T8 vertebral body. There is no clear acute fracture line seen involving this fracture. There is a more acute appearing compression fracture, which is within significantly less height loss seen involving the T12 vertebral body anteriorly. IMPRESSION: 1. Upper lobe predominant crazy paving (ground-glass opacity with superimposed inter and intralobular septal thickening). This is a nonspecific finding that can be seen in pulmonary alveolar proteinosis, PCP, acute interstitial pneumonia, diffuse alveolar damage, pulmonary edema, diffuse alveolar hemorrhage, NSIP, and eosinophilic pneumonia. Notably these findings appear to have developed at the end of January based on the prior chest radiographs which would suggest a more acute presentation (as opposed to KAILASH or lipoid pneumonia). Correlate clinically and consider bronchoscopy, pulmonary consultation. 2. No pulmonary artery embolism. 3. New small right pleural effusion. 4. Acute appearing compression fracture of what appears to be the T12 vertebral body anteriorly, with mild anterior height loss. 5. More chronic appearing severe compression deformity of a mid to lower thoracic vertebral body, likely T8 with severe height loss. Please note that all CT scans at this facility use dose modulation, iterative reconstruction, and/or weight-based dosing when appropriate to reduce radiation dose to as low as reasonably achievable. Dictated by Marko Yadav MD @ Feb 27 2019 1:21PM (Electronically Signed)
[2019-02-27] MEDS ORDERED: Furosemide 40 MG/4 ML VIAL IVPUSH ONE (14:30)
[2019-02-27 14:59] VITALS: BP 135/57
[2019-02-27] MEDS: Enoxaparin 80 MG/0.8 ML Syringe SUBCUT SCH (15:41)
--- NOTE | 2019-02-27 16:06 | PCM.DCSUM1 ---
Discharge Summary - Hospital Course Brief History: Ms. Gonzalez is an 78-year-old woman admitted through the emergency department with shortness of breath and hypoxia, which were felt to be secondary to bronchitis. Chest x-ray on admission showed no obvious infiltrates. - Discharge Data Discharge Date: 02/27/19 Discharge Disposition: Home, Self-Care 01 Condition: Good - Discharge Diagnosis/Problem(s) (1) Ground glass opacity present on imaging of lung SNOMED Code(s): 648846786 ICD Code: R91.8 - OTHER NONSPECIFIC ABNORMAL FINDING OF LUNG FIELD Status: Acute Current Visit: Yes (2) Bilateral pulmonary infiltrates on CXR SNOMED Code(s): 306481239, 750863608 ICD Code: R91.8 - OTHER NONSPECIFIC ABNORMAL FINDING OF LUNG FIELD Status: Acute Current Visit: Yes (3) Hypoxia SNOMED Code(s): 189236562 ICD Code: R09.02 - HYPOXEMIA Status: Acute Current Visit: Yes (4) Arthritis, rheumatoid SNOMED Code(s): 90455047 ICD Code: M06.9 - RHEUMATOID ARTHRITIS, UNSPECIFIED Status: Chronic Current Visit: No Qualifiers: Rheumatoid arthritis location: multiple sites Rheumatoid factor presence: unspecified presence Qualified Code(s): M06.9 - Rheumatoid arthritis, unspecified - Patient Summary/Data Consults: Consultations 02/22/19 18:03 Consult to Physical Therapy [PT Evaluation and Treatment] [CONS] Routine Please Evaluate and Treat. PT Reason for Consult: strengthening, pt increased weakness This query below is only for informational purposes and is not editable. Admission Diagnosis/Problem: Acute bronchitis Hospital Course: Carole presents to the ED from [facility] with two days of cough, congestion, malaise and was hypoxic this morning. She was seen in the emergency room on the evening prior to admission and there was concern for congestive heart failure. She did receive a dose of furosemide and felt a little bit better. Overnight she got worse. She was hypoxic this morning during routine vitals. She reports feeling well on and Saturday but yesterday developed nasal congestion, rhinorrhea as well as a little dry cough and congestion. She has had fevers but has not had shaking chills. She feels a little short of breath. Energy is greatly decreased. Appetite has been normal. No complaints of abdominal pain or nausea. She has not noticed any change in her urinary habits. She has possible sick contacts at the [facility] and has noted multiple people in her vicinity have been coughing and/or sneezing. No complaints of chest pain or pleuritic chest pain. She has pain in her right calf. No complaints of pain on the left side. Workup in the emergency room was suggestive of acute bronchitis with hypoxic respiratory failure. Urine sample from last night suggestive of infection and urine culture growing gram-negative rods today. Creatinines up to 1.4 with a baseline of 0.8-0.9. She was admitted for further management. She received 1 L of fluid after admission, and no further IV fluids during the hospitalization. She was started on IV antibiotic therapy with azithromycin and ceftriaxone. She improved over the first 2 days of hospitalization with less shortness of breath and cough. On the day prior to transfer she developed increased hypoxemia requiring more supplemental oxygen at 6-8 L/m via simple facemask. Chest x-ray was obtained which did show evidence of infiltrates in both upper lobes. She was given IV furosemide on the day prior to transfer as well as the day of transfer with no significant improvement in symptoms despite good diuresis. On admission a venous Doppler study did document a nonocclusive deep vein thrombosis and she was started on enoxaparin as well as oral anticoagulation with warfarin. At the time of transfer she remains on the enoxaparin as well as oral warfarin with a therapeutic INR. Because of persistent symptoms CT scan of the chest with IV contrast was obtained on the day of transfer. There was no evidence of pulmonary embolism, CT scan did document bilateral groundglass infiltrates in both upper lobes. Because of lack of significant improvement and management for possible congestive heart failure as well as community-acquired pneumonia, decision was made to proceed with transfer to a tertiary care center for further subspecialty evaluation and management. She will be transferred to [facility] in [facility] via [facility]. She has been accepted in transfer by the hospitalist on-call. - Patient Instructions Diet: Usual Diet as Tolerated Activity: As Tolerated Other/Special Instructions: Patient will be transferred to [facility] in [facility] via [facility] ambulance for further subspecialty evaluation and management. - Discharge Plan *PRESCRIPTION DRUG MONITORING PROGRAM REVIEWED*: Not Applicable *COPY OF PRESCRIPTION DRUG MONITORING REPORT IN PATIENT [place]: Not Applicable Home Medications: Home Meds Cyanocobalamin (Vitamin B-12) [Vitamin B-12] 1,000 mcg PO DAILY 06/10/17 [ History] Furosemide [Lasix] 40 mg PO DAILY 06/10/17 [History] methylPREDNISolone [Methylprednisolone] 8 mg PO DAILY 07/25/17 [History] Acetaminophen [Tylenol] 650 mg PO QID PRN 08/06/18 [History] Calcium Carbonate/Vitamin D3 [Calcium 600 + Vit D 400 Softgl] 1 each PO ASDIRECTED PRN 08/06/18 [History] Rosuvastatin Calcium 5 mg PO BEDTIME 08/06/18 [History] Gabapentin [Neurontin] 100 mg PO BID #60 capsule 09/25/18 [Rx] Atropine Sulfate In 0.9% NaCl [Atropine 0.01%-Ns Eye Drops] 1 drop EYELF DAILY 01/05/19 [History] Bismuth Subsalicylate [Pepto Bismol] 30 ml PO Q4HR PRN 01/05/19 [History] Citalopram Hydrobromide [Celexa] 10 mg PO DAILY 01/05/19 [History] Esomeprazole [NexIUM] 40 mg PO DAILY 01/05/19 [History] Amanda Seal/Echinacea Purpurea [Echinacea & Goldenseal] 1 cap PO BID PRN [History] Ondansetron HCl [Zofran] 4 mg PO Q8HR PRN 01/05/19 [History] prednisoLONE acetate [Pred Forte 1% Ophth Susp] 1 drop EYELF BID 01/05/19 [ History] Magnesium Hydroxide [Milk of Magnesia] 30 ml PO Q12H PRN cup 01/08/19 [Rx] Cranberry Fruit [Cranberry] 450 mg PO DAILY 02/22/19 [History] Potassium Chloride 20 meq PO TID 02/22/19 [History] amLODIPine Besylate [Amlodipine Besylate] 10 mg PO BEDTIME 02/22/19 [History] Clotrimazole [Mycelex] 10 mg PO 5XDAY carmel 02/27/19 [Rx] Enoxaparin [Lovenox] 80 mg SUBCUT DAILY@1600 syringe 02/27/19 [Rx] Lactobacillus Rhamnosus GG [Culturelle] 1 cap PO BID cap 02/27/19 [Rx] Warfarin [Coumadin] 1 mg PO DAILY@1300 tablet 02/27/19 [Rx] Oxygen Therapy Mode: Simple Mask - Discharge Summary/Plan Comment DC Time >30 min.: No - Patient Data Vitals - Most Recent: Last Vital Signs Temp 98.5 F 02/27/19 14:57 Pulse 97 02/27/19 14:57 Resp 20 02/27/19 14:57 BP 135/57 L 02/27/19 14:57 Pulse Ox 92 L 02/27/19 14:57 Weight - Most Recent: 168 lb 15.996 oz I&O - Last 24 hours: Intake & Output 02/27/19 02/27/19 02/27/19 06:59 14:59 22:59 Intake Total 300 240 Output Total 200 Balance 300 40 Lab Results - Last 24 hrs: Laboratory Results - last 24 hr 02/27/19 02/27/19 02/27/19 Range/Units 05:25 05:25 05:25 WBC 11.3 H (4.5-11.0) K/uL RBC 3.67 (3.30-5.50) M/uL Hgb 10.4 L (12.0-15.0) g/dL Hct 34.2 L (36.0-48.0) % MCV 93 (80-98) fL MCH 28 (27-31) pg MCHC 30 L (32-36) % Plt Count 214 (150-400) K/uL Neut % (Auto) 85 H (36-66) % Lymph % (Auto) 8 L (24-44) % Barnes % (Auto) 6 (2-6) % Eos % (Auto) 0 L (2-4) % Baso % (Auto) 0 (0-1) % PT 25.5 H (9.5-12.0) sec INR 2.44 H (0.80-1.20) Sodium 140 (140-148) mmol/L Potassium 3.7 (3.6-5.2) mmol/L Chloride 101 (100-108) mmol/L Carbon Dioxide 34 H (21-32) mmol/L Anion Gap 8.7 (5.0-14.0) mmol/L BUN 21 H (7-18) mg/dL Creatinine 1.1 H (0.6-1.0) mg/dL Est Cr Clr Drug Dosing 29.30 mL/min Estimated GFR (MDRD) 48 L (>60) Glucose 98 (74-106) mg/dL Calcium 8.9 (8.5-10.1) mg/dL Magnesium 1.8 (1.8-2.4) mg/dL Med Orders - Current: Current Medications Acetaminophen (Tylenol) 650 mg PO Q4H PRN PRN Reason: Pain (Mild 1-3)/fever Last Admin: 02/27/19 10:18 Dose: 325 mg Albuterol (Proventil Neb Soln) 2.5 mg NEB Q4H PRN PRN Reason: Shortness Of Breath/wheezing Last Admin: 02/26/19 04:34 Dose: 2.5 mg Albuterol/Ipratropium (Duoneb 3.0-0.5 Mg/3 Ml) 3 ml NEB QIDRT [facility] Last Admin: 02/27/19 14:27 Dose: 3 ml Atropine Sulfate (Atropine 1%) 0 ml OP DAILY [facility] Last Admin: 02/27/19 08:42 Dose: 1 drop Benzonatate (Tessalon Perles) 100 mg PO TID PRN PRN Reason: Cough Last Admin: 02/27/19 01:02 Dose: 100 mg Citalopram Hydrobromide (Celexa) 10 mg PO DAILY [facility] Last Admin: 02/27/19 08:39 Dose: 10 mg Clotrimazole (Mycelex) 10 mg PO 5XDAY [facility] Last Admin: 02/27/19 15:40 Dose: 10 mg Cyanocobalamin (Vitamin B12) 1,000 mcg PO DAILY [facility] Last Admin: 02/27/19 08:42 Dose: 1,000 mcg Enoxaparin Sodium (Lovenox) 80 mg 1 mg/kg (75 mg) SUBCUT DAILY@1600 [facility] Last Admin: 02/27/19 15:41 Dose: 80 mg Gabapentin (Neurontin) 100 mg PO BID [facility] Last Admin: 02/27/19 08:41 Dose: 100 mg Guaifenesin/Dextromethorphan (Robitussin Dm) 10 ml PO Q4H PRN PRN Reason: Cough Last Admin: 02/26/19 22:47 Dose: 10 ml Lactobacillus Rhamnosus (Culturelle) 1 cap PO BID [facility] Last Admin: 02/27/19 08:39 Dose: 1 cap Magnesium Hydroxide (Milk Of Magnesia) 30 ml PO Q12H PRN PRN Reason: Constipation Methylprednisolone (Medrol) 8 mg PO DAILY [facility] Last Admin: 02/27/19 08:41 Dose: 8 mg Ondansetron HCl (Zofran Odt) 4 mg PO Q6H PRN PRN Reason: Nausea able to take PO Last Admin: 02/22/19 21:07 Dose: 4 mg Pantoprazole Sodium (Protonix) 40 mg PO ACBREAKFAST [facility] Last Admin: 02/27/19 08:29 Dose: 40 mg Polyethylene Glycol (Miralax) 17 gm PO DAILY PRN PRN Reason: Constipation Prednisolone Acetate (Pred Forte 1% Ophth Susp) 0 ml EYELF BID [facility] Last Admin: 02/27/19 08:42 Dose: 1 drop Rosuvastatin Calcium (Crestor) 5 mg PO BEDTIME [facility] Last Admin: 02/26/19 20:36 Dose: 5 mg Senna/Docusate Sodium (Senna Plus) 1 tab PO BID PRN PRN Reason: Constipation Warfarin Sodium (Coumadin) 1 mg PO DAILY@1300 [facility] Last Admin: 02/27/19 15:40 Dose: 1 mg Discontinued Medications Albuterol (Proventil Neb Soln) 2.5 mg NEB ONETIME ONE Stop: 02/22/19 10:50 Last Admin: 02/22/19 10:56 Dose: 2.5 mg Amlodipine Besylate (Norvasc) 10 mg PO BEDTIME [facility] Last Admin: 02/22/19 20:01 Dose: 10 mg Azithromycin (Zithromax) 500 mg PO ONETIME ONE Stop: 02/22/19 13:06 Last Admin: 02/22/19 15:01 Dose: 500 mg Azithromycin (Zithromax) 500 mg PO DAILY [facility] Last Admin: 02/24/19 08:31 Dose: 500 mg Benzonatate (Tessalon Perles) 200 mg PO ONETIME ONE Stop: 02/22/19 12:11 Last Admin: 02/22/19 14:59 Dose: 200 mg Diphenhydramine HCl (Benadryl) 25 mg IVPUSH ONETIME ONE Stop: 02/27/19 11:34 Last Admin: 02/27/19 12:03 Dose: 25 mg Furosemide (Lasix) 40 mg IVPUSH STAT ONE Stop: 02/26/19 08:11 Last Admin: 02/26/19 08:16 Dose: 40 mg Furosemide (Lasix) 40 mg IVPUSH NOW ONE Stop: 02/26/19 17:01 Last Admin: 02/26/19 16:18 Dose: 40 mg Furosemide (Lasix) 40 mg IVPUSH NOW ONE Stop: 02/27/19 14:31 Last Admin: 02/27/19 15:40 Dose: 40 mg Ceftriaxone Sodium 1 gm/ (Sodium Chloride) 50 mls @ 100 mls/hr IV Q24H [facility] Last Admin: 02/22/19 15:00 Dose: 100 mls/hr Ceftriaxone Sodium 1 gm/ (Sodium Chloride) 50 mls @ 100 mls/hr IV Q24H [facility] Last Admin: 02/24/19 13:38 Dose: 100 mls/hr Sodium Chloride (Normal Saline) 1,000 mls @ 125 mls/hr IV ASDIRECTED [facility] Stop: 02/22/19 23:22 Last Admin: 02/22/19 16:12 Dose: 125 mls/hr Sodium Chloride (Normal Saline) 1,000 mls @ 999 mls/hr IV .BOLUS ONE Stop: 02/23/19 08:50 Last Admin: 02/23/19 08:04 Dose: 999 mls/hr Potassium Chloride 20 meq/Lidocaine HCl 2 ml/ Sodium Chloride 112 mls @ 56 mls/ hr IV Q2H [facility] Stop: 02/23/19 13:59 Last Admin: 02/23/19 15:22 Dose: 56 mls/hr Phytonadione 1 mg/ Sodium (Chloride) 50.5 mls @ 100 mls/hr IV ONETIME ONE Stop: 02/25/19 06:56 Last Admin: 02/25/19 07:37 Dose: 100 mls/hr Levofloxacin (Levaquin) 500 mg PO ONETIME ONE Stop: 02/24/19 16:01 Last Admin: 02/24/19 15:39 Dose: 500 mg Levofloxacin (Levaquin) 250 mg PO Q24H [facility] Last Admin: 02/25/19 16:06 Dose: 250 mg Levofloxacin (Levaquin) 750 mg PO Q48H [facility] Last Admin: 02/26/19 16:12 Dose: 750 mg Methylprednisolone (Medrol) 8 mg PO DAILY [facility] Last Admin: 02/23/19 09:45 Dose: 8 mg Methylprednisolone Sodium Succinate (Solu-Medrol) 40 mg IVPUSH ONETIME ONE Stop: 02/27/19 11:34 Last Admin: 02/27/19 12:04 Dose: 40 mg Potassium Chloride (Klor-Con M20) 20 meq PO ONETIME ONE Stop: 02/22/19 12:18 Last Admin: 02/22/19 14:58 Dose: 20 meq Potassium Chloride (Klor-Con M20) 20 meq PO TIDMEALS [facility] Last Admin: 02/24/19 11:25 Dose: 20 meq Potassium Chloride (Klor-Con M20) 40 meq PO ONETIME ONE Stop: 02/23/19 09:16 Last Admin: 02/23/19 09:38 Dose: 40 meq Warfarin Sodium (Coumadin) 5 mg PO DAILY@1300 [facility] Last Admin: 02/23/19 14:04 Dose: 5 mg Warfarin Sodium (Coumadin) 5 mg PO ONETIME ONE Stop: 02/22/19 15:22 Last Admin: 02/22/19 16:16 Dose: 5 mg Warfarin Sodium (Coumadin) 2.5 mg PO DAILY@1300 [facility] Last Admin: 02/24/19 13:37 Dose: 2.5 mg - Exam Quality Assessment: Reports: Supplemental Oxygen, DVT Prophylaxis General: Reports: Alert, Oriented, Cooperative, Moderate Distress Lungs: Reports: Decreased Breath Sounds, Rales. Denies: Crackles, Rhonchi, Wheezing Cardiovascular: Reports: Regular Rate, Regular Rhythm, Murmurs GI/Abdominal Exam: Soft, Non-Tender, No Organomegaly, No Distention Extremities: Non-Tender, No Pedal Edema
== END 2019-02-27 17:00 | DRG 193 ==
LOC: JP.ED 10:15 → JP.MS 13:23
PROVIDERS: ADMIT Internal Medicine; ATTEND Hospitalist
DX: R91.8 Other nonspecific abnormal finding of lung field (principal); J18.9 Pneumonia, unspecified organism; R06.02 Shortness of breath; J96.01 Acute respiratory failure with hypoxia; N39.0 Urinary tract infection, site not specified; N17.9 Acute kidney failure, unspecified; I82.412 Acute embolism and thrombosis of left femoral vein; B37.0 Candidal stomatitis; E87.6 Hypokalemia; M06.9 Rheumatoid arthritis, unspecified; I10 Essential (primary) hypertension; R79.1 Abnormal coagulation profile; Z86.718 Personal history of other venous thrombosis and embolism; Z86.711 Personal history of pulmonary embolism; E78.00 Pure hypercholesterolemia, unspecified; I95.89 Other hypotension; K21.9 Gastro-esophageal reflux disease without esophagitis; H54.7 Unspecified visual loss; R32 Unspecified urinary incontinence; M35.3 Polymyalgia rheumatica; H54.62 Unqualified visual loss, left eye, normal vision right eye; Z88.1 Allergy status to other antibiotic agents; Z91.041 Radiographic dye allergy status; Z88.5 Allergy status to narcotic agent; Z88.0 Allergy status to penicillin; Z88.2 Allergy status to sulfonamides; Z88.8 Allergy status to other drugs, medicaments and biological substances
CPT/HCPCS: 36415; 36600; 71045; 71046; 71275; 80048; 82803; 83735; 84132; 85025; 85027; 85379; 85610; 93970; 94640; 94667; 94762; 97110-GP; 97162-GP; 97530-GP; 99285; 99285-25; A9270-GY; J0696; J1200; J1650; J1940; J2001; J2920; J3430; J3480; J7030; J7050; J7620-GY